=== PATIENT | male | born 1965 | race Hispanic/Latino ===

== ENCOUNTER 2022-03-24 15:17 | Inpatient (IN) | payer OTHER ==
[~2022-03-24] VITALS: Ht 162.6 cm; Wt 71.8 kg
[2022-03-24 15:58] LABS: BASOPHILS % (AUTO) 0.3 % (0.0-5.0); EOSINOPHILS % (AUTO) 0.6 % (0.0-8.0); HEMATOCRIT 25.6 % (42-54); LYMPHOCYTES % (AUTO) 3.2 % (21.0-51.0); MEAN CORPUSCULAR HEMOGLOBIN 32.5 pg (27.0-33.0); MEAN CORPUSCULAR VOLUME 95.5 fL (79-99); MONOCYTES % (AUTO) 5.6 % (3.0-13.0); NEUTROPHILS % (AUTO) 89.4 % (40.0-77.0); PLATELET COUNT (AUTO) 82 K/uL (130-400); RED BLOOD CELL COUNT(AUTO) 2.68 MIL/uL (4.50-6.20); RED CELL DISTRIBUTION WIDTH 15.3 % (11.0-15.5); WHITE BLOOD COUNT (AUTO) 22.6 K/uL (4.8-10.8)
[2022-03-24 16:08] LABS: CREATININE 2.9 mg/dL (0.5-1.5); POTASSIUM 5.6 mmol/L (3.5-5.1)
[2022-03-24 16:10] LABS: INR 1.18 (0.85-1.15); PROTHROMBIN TIME 12.7 SEC (9.6-11.6)
[2022-03-24 16:11] LABS: PARTIAL THROMBOPLASTIN TIME 31.9 SEC (26.3-35.5)
[2022-03-24 16:15] LABS: ALBUMIN 1.5 g/dL (3.5-5.0); BILIRUBIN,TOTAL 2.2 mg/dL (0.2-1.0); TOTAL PROTEIN, SERUM 5.7 g/dL (6.0-8.3)
[2022-03-24] MEDS ORDERED: CEFTRIAXONE 1G VIAL IVP ONE (16:30)
[2022-03-24] MEDS ORDERED: ACETAMINOPHEN 325 MG TAB PO PRN ×2 (17:30)
[2022-03-24] MEDS ORDERED: 0.9%NACL 1000ML 1,000 ML IV SCH (17:30)
[2022-03-24] MEDS ORDERED: PHARMACY COMMUNICATION MISC PRN (17:30)
[2022-03-24] MEDS ORDERED: ONDANSETRON 4MG INJ IV PRN (17:30)
[2022-03-24] MEDS ORDERED: THIAMINE HCL 100 MG, FOLIC ACID 1 MG, M.V.I. IV [ADULT] 10 ML in 0.9%NACL 1000ML 1,000 ML IV SCH (17:30)
[2022-03-24] MEDS: ALBUMIN (HUMAN) 25% 50 ML IV SCH (17:34)
[2022-03-24] MEDS: ALBUMIN (HUMAN) 25% 200 ML IV SCH (17:35)
[2022-03-24] MEDS: LACTULOSE 20 GM/30 ML UDCUP PO SCH ×2 (17:36→23:39)
[2022-03-24] MEDS ORDERED: PANTOPRAZOLE 40 MG/VIAL ONE (17:49)
[2022-03-24] MEDS ORDERED: MIDODRINE HCL 5 MG TABLET ONE (17:49)
[2022-03-24 17:50] LABS: ALCOHOL, BLOOD < 3 mg/dL (0-10); PHOSPHORUS 4.8 mg/dL (2.5-4.9)
[2022-03-24] MEDS ORDERED: OCTREOTIDE ACETATE 100 MCG/ML AMP ONE (17:50)
[2022-03-24] MEDS ORDERED: COMPOUND IV REFRIGERATED 1 EACH IVSOLN MISC PRN (18:00)
[2022-03-24] MEDS ORDERED: LACTULOSE 20 GM/30 ML UDCUP PR SCH (18:00)
[2022-03-24] MEDS: MIDODRINE HCL 5 MG TABLET PO SCH (18:02)
[2022-03-24] MEDS: PANTOPRAZOLE 40 MG/VIAL IVP SCH (18:02)
[2022-03-24] MEDS: MEROPENEM 500 MG VIAL IVP SCH (18:12)
[2022-03-24] MEDS: NOREPINEPHRIN 4MG/NS 250ML 250 ML IV SCH (18:37)
[2022-03-24] MEDS ORDERED: PHENYLEPHRINE HCL 100 MG in 0.9% NACL 250ML 250 ML IV SCH (20:30)
[2022-03-24] MEDS ORDERED: CALCIUM GLUC 1GM 1 GM in 0.9%NACL 100ML 100 ML IV SCH (20:30)
[2022-03-24 20:46] LABS: HEMATOCRIT 22.5 % (42-54)
[2022-03-24] MEDS ORDERED: CEFTRIAXONE 1G VIAL IV SCH (21:00)
[2022-03-24] MEDS ORDERED: DEXTROSE 50%-WATER 50 ML DISP.SYRIN IV ONE (21:00)
[2022-03-24] MEDS ORDERED: INSULIN HUMULIN R 100 UNIT/ML 3ML IV ONE (21:00)
[2022-03-24] MEDS ORDERED: KAYEXALATE 15GM/60ML PO ONE (21:00)
[2022-03-24] MEDS ORDERED: OCTREOTIDE ACETATE 100 MCG/ML AMP SQ SCH (21:00)
[2022-03-24] MEDS: RIFAXIMIN 550 MG TABLET PO SCH (21:00)
[2022-03-24 21:56] LABS: APPEARANCE,URINE Cloudy (CLEAR); BILIRUBIN,URINE Negative (NEGATIVE); COLOR,URINE Orange (YELLOW); GLUCOSE, URINE (UA) Negative (NEGATIVE); KETONES,URINE Negative (NEGATIVE); LEUKOCYTE ESTERASE ,URINE Moderate (NEGATIVE); NITRATE,URINE Positive (NEGATIVE); OCCULT BLOOD,URINE Large (NEGATIVE); PROTEIN,URINE POS 2+ mg/dL (NEGATIVE)
[2022-03-24 22:05] LABS: AMPHET/METH SCREEN,URINE NEGATIVE (NEGATIVE); BARBITURATE SCREEN, URINE NEGATIVE (NEGATIVE); BENZODIAZEPINES SCREEN,URINE NEGATIVE (NEGATIVE); CANNABINOID SCREEN,URINE NEGATIVE (NEGATIVE); COCAINE SCREEN,URINE NEGATIVE (NEGATIVE); OPIATE SCREEN,URINE NEGATIVE (NEGATIVE); PHENCYCLIDINE SCREEN,URINE NEGATIVE (NEGATIVE)
[2022-03-24 22:08] LABS: BACTERIA,URINE Few /HPF (None Seen); RBC,URINE 51-100 /HPF (0-1)
[2022-03-24 22:09] LABS: SQUAMOUS EPITHELIAL CELL,UR Rare /HPF (0-2)
[2022-03-25] VITALS (60 sets, daily range): BP systolic 83–144; BP diastolic 34–93
[2022-03-25 01:51] LABS: ABG BASE EXCESS -5.5 mmol/L (-2.0-3.0); ABG HCO3 16.3 mmol/L (21.0-28.0); ABG OXYGEN SATURATION 98.9 % (95.0-99.0); ABG PCO2 24 mmHg (35-48)
[2022-03-25 01:56] LABS: MEAN CORPUSCULAR HGB CONC 34.5 g/dL (32.0-36.0)
[2022-03-25 01:59] LABS: BASOPHILS % (AUTO) 0.2 % (0.0-5.0); LYMPHOCYTES % (AUTO) 7.5 % (21.0-51.0); MEAN CORPUSCULAR HEMOGLOBIN 32.9 pg (27.0-33.0); MEAN CORPUSCULAR VOLUME 95.3 fL (79-99); MONOCYTES % (AUTO) 8.1 % (3.0-13.0); NEUTROPHILS % (AUTO) 83.2 % (40.0-77.0); PLATELET COUNT (AUTO) 93 K/uL (130-400); RED BLOOD CELL COUNT(AUTO) 2.13 MIL/uL (4.50-6.20); WHITE BLOOD COUNT (AUTO) 20.9 K/uL (4.8-10.8)
[2022-03-25 02:01] LABS: HEMATOCRIT 20.3 % (42-54)
[2022-03-25 02:12] LABS: CREATININE 2.7 mg/dL (0.5-1.5); POTASSIUM 4.7 mmol/L (3.5-5.1)
[2022-03-25 02:17] LABS: MAGNESIUM 2.3 mg/dL (1.80-2.40)
[2022-03-25] MEDS: LACTULOSE 20 GM/30 ML UDCUP PO SCH ×4 (05:18→22:49)
[2022-03-25] MEDS: MEROPENEM 500 MG VIAL IVP SCH ×2 (05:18→18:00)
[2022-03-25] MEDS ORDERED: OCTREOTIDE ACETATE 100 MCG/ML AMP IV SCH (08:30)
[2022-03-25] MEDS: PANTOPRAZOLE 40 MG/VIAL IVP SCH ×2 (09:23→20:49)
[2022-03-25] MEDS: THIAMINE HCL 100 MG TABLET PO SCH (09:24)
[2022-03-25] MEDS: RIFAXIMIN 550 MG TABLET PO SCH ×2 (09:24→20:49)
[2022-03-25] MEDS: MIDODRINE HCL 5 MG TABLET PO SCH ×3 (09:24→20:50)
[2022-03-25] MEDS: MULTIVITAMIN TABLET PO SCH (09:29)
[2022-03-25] MEDS: 0.9%NACL 1000ML 1,000 ML IV SCH ×2 (09:29→18:30)
[2022-03-25] MEDS: NOREPINEPHRIN 4MG/NS 250ML 250 ML IV SCH (09:41)
[2022-03-25 12:45] LABS: HEMATOCRIT 20.6 % (42-54)
[2022-03-25] MEDS: Vitamin B Complex/Vit C/Folic Acid PO SCH (15:08)
[2022-03-25] MEDS: ALBUMIN (HUMAN) 25% 50 ML IV SCH ×3 (15:08→22:47)
[2022-03-25 17:01] LABS: HEMATOCRIT 22.5 % (42-54)
[2022-03-25] MEDS: ALBUMIN (HUMAN) 25% 200 ML IV SCH (17:30)
[2022-03-25] MEDS: OCTREOTIDE ACETATE 1,250 MCG in 0.9% NACL 250ML 250 ML IV SCH (17:50)
[2022-03-25 21:18] LABS: HEMATOCRIT 21.3 % (42-54)
[2022-03-25] MEDS ORDERED: ALBUMIN (HUMAN) 25% 0 ML IV ONE (22:24)
[2022-03-26] VITALS (65 sets, daily range): BP systolic 94–139; BP diastolic 53–76
[2022-03-26] MEDS: NOREPINEPHRIN 4MG/NS 250ML 250 ML IV SCH (00:42)
[2022-03-26] MEDS: 0.9%NACL 1000ML 1,000 ML IV SCH ×3 (04:05→23:38)
[2022-03-26 04:12] LABS: HEMATOCRIT 21.6 % (42-54); MEAN CORPUSCULAR HEMOGLOBIN 31.2 pg (27.0-33.0); MEAN CORPUSCULAR HGB CONC 33.3 g/dL (32.0-36.0); MEAN CORPUSCULAR VOLUME 93.5 fL (79-99); PLATELET COUNT (AUTO) 64 K/uL (130-400); RED BLOOD CELL COUNT(AUTO) 2.31 MIL/uL (4.50-6.20); RED CELL DISTRIBUTION WIDTH 17.2 % (11.0-15.5); WHITE BLOOD COUNT (AUTO) 7.6 K/uL (4.8-10.8)
[2022-03-26 04:55] LABS: BILIRUBIN,TOTAL 2.3 mg/dL (0.2-1.0); CREATININE 2.1 mg/dL (0.5-1.5); MAGNESIUM 2.1 mg/dL (1.80-2.40); PHOSPHORUS 4.5 mg/dL (2.5-4.9); POTASSIUM 3.8 mmol/L (3.5-5.1); THYROID STIMULATING HORMONE 1.36 uIU/mL (0.36-3.74); TOTAL PROTEIN, SERUM 4.8 g/dL (6.0-8.3); URIC ACID 11.9 mg/dL (2.6-7.2)
[2022-03-26] MEDS: MEROPENEM 500 MG VIAL IVP SCH ×2 (05:58→17:19)
[2022-03-26] MEDS: LACTULOSE 20 GM/30 ML UDCUP PO SCH ×4 (05:58→23:37)
[2022-03-26 06:16] LABS: EOSINOPHILS % (MANUAL) 1 % (1-6); LYMPHOCYTES % (MANUAL) 15 % (22-44); MAN.DIFF COMMENT-IMPRESSION MANUAL DIFFERENTIAL; MONOCYTES % (MANUAL) 4 % (2-9); PLATELET MORPHOLOGY COMMENT DECREASED; SEGMENTED NEUTROPHILS % 80 % (40-70)
[2022-03-26] MEDS: ALBUMIN (HUMAN) 25% 50 ML IV SCH (07:30)
[2022-03-26 08:55] LABS: HEMATOCRIT 22.7 % (42-54)
[2022-03-26] MEDS: THIAMINE HCL 100 MG TABLET PO SCH (09:06)
[2022-03-26] MEDS: Vitamin B Complex/Vit C/Folic Acid PO SCH (09:07)
[2022-03-26] MEDS: PANTOPRAZOLE 40 MG/VIAL IVP SCH ×2 (09:07→20:17)
[2022-03-26] MEDS: MIDODRINE HCL 5 MG TABLET PO SCH ×3 (09:07→20:18)
[2022-03-26] MEDS: MULTIVITAMIN TABLET PO SCH (09:07)
[2022-03-26] MEDS: RIFAXIMIN 550 MG TABLET PO SCH ×2 (09:07→20:18)
[2022-03-26 13:04] LABS: HEMATOCRIT 21.7 % (42-54)
[2022-03-26 16:53] LABS: HEMATOCRIT 22.1 % (42-54)
[2022-03-26 21:51] LABS: HEMATOCRIT 23.2 % (42-54)
[2022-03-27] VITALS (24 sets, daily range): BP systolic 100–129; BP diastolic 44–71
[2022-03-27] MEDS: LACTULOSE 20 GM/30 ML UDCUP PO SCH (05:24)
[2022-03-27] MEDS: MEROPENEM 500 MG VIAL IVP SCH ×2 (05:24→17:58)
[2022-03-27 09:03] LABS: BASOPHILS % (AUTO) 0.7 % (0.0-5.0); EOSINOPHILS % (AUTO) 1.2 % (0.0-8.0); HEMATOCRIT 25.8 % (42-54); LYMPHOCYTES % (AUTO) 16.8 % (21.0-51.0); MEAN CORPUSCULAR HEMOGLOBIN 31.5 pg (27.0-33.0); MEAN CORPUSCULAR HGB CONC 32.6 g/dL (32.0-36.0); MEAN CORPUSCULAR VOLUME 96.6 fL (79-99); MONOCYTES % (AUTO) 10.2 % (3.0-13.0); NEUTROPHILS % (AUTO) 69.4 % (40.0-77.0); PLATELET COUNT (AUTO) 72 K/uL (130-400); RED BLOOD CELL COUNT(AUTO) 2.67 MIL/uL (4.50-6.20); WHITE BLOOD COUNT (AUTO) 6.1 K/uL (4.8-10.8)
[2022-03-27 09:24] LABS: ALBUMIN 1.9 g/dL (3.5-5.0); CREATININE 1.8 mg/dL (0.5-1.5); CRP QUANTITATIVE 32.5 mg/L (0.00-9.0); MAGNESIUM 1.9 mg/dL (1.80-2.40); POTASSIUM 3.6 mmol/L (3.5-5.1); TOTAL PROTEIN, SERUM 4.7 g/dL (6.0-8.3)
[2022-03-27] MEDS ORDERED: LACTULOSE 20 GM/30 ML UDCUP PO PRN (09:30)
[2022-03-27] MEDS: RIFAXIMIN 550 MG TABLET PO SCH ×2 (09:52→20:00)
[2022-03-27] MEDS: MIDODRINE HCL 5 MG TABLET PO SCH ×3 (09:52→20:03)
[2022-03-27] MEDS: Vitamin B Complex/Vit C/Folic Acid PO SCH (09:52)
[2022-03-27] MEDS: PANTOPRAZOLE 40 MG/VIAL IVP SCH ×2 (09:52→20:00)
[2022-03-27] MEDS: MULTIVITAMIN TABLET PO SCH (09:52)
[2022-03-27] MEDS: THIAMINE HCL 100 MG TABLET PO SCH (09:55)
[2022-03-27] MEDS: 0.9%NACL 1000ML 1,000 ML IV SCH (10:04)
[2022-03-27] MEDS: OCTREOTIDE ACETATE 1,250 MCG in 0.9% NACL 250ML 250 ML IV SCH (11:40)
[2022-03-28] VITALS (13 sets, daily range): BP systolic 86–121; BP diastolic 56–69
[2022-03-28 02:00] LABS: APPEARANCE,URINE SL CLOUDY (CLEAR); BILIRUBIN,URINE NEGATIVE (NEGATIVE); COLOR,URINE YELLOW (YELLOW); CREATININE,URINE RANDOM 112 mg/dL (30-135); GLUCOSE, URINE (UA) NEGATIVE (NEGATIVE); KETONES,URINE NEGATIVE (NEGATIVE); LEUKOCYTE ESTERASE ,URINE NEGATIVE (NEGATIVE); NITRATE,URINE NEGATIVE (NEGATIVE); OCCULT BLOOD,URINE LARGE (NEGATIVE); PH,URINE 5.5 (5.0-8.0); POTASSIUM,URINE RANDOM 23 mmol/L (25-125); PROTEIN,URINE 100 mg/dL (NEGATIVE); SODIUM,URINE RANDOM 36 mmol/l (40-220); UROBILINOGEN,URINE 0.2 mg/dL (0.2-1.0)
[2022-03-28 02:06] LABS: AMORPHOUS SEDIMENT,UR Rare /LPF (None Seen); BACTERIA,URINE None Seen /HPF (None Seen); SQUAMOUS EPITHELIAL CELL,UR Rare /HPF (0-2); WBC,URINE None Seen /HPF (0-1); YEAST,URINE BUDDING Few /HPF (None Seen)
[2022-03-28 03:54] LABS: BASOPHILS % (AUTO) 0.7 % (0.0-5.0); HEMATOCRIT 27.7 % (42-54); LYMPHOCYTES % (AUTO) 17.2 % (21.0-51.0); MEAN CORPUSCULAR HEMOGLOBIN 30.9 pg (27.0-33.0); MEAN CORPUSCULAR HGB CONC 32.5 g/dL (32.0-36.0); MEAN CORPUSCULAR VOLUME 95.2 fL (79-99); MONOCYTES % (AUTO) 11.6 % (3.0-13.0); NEUTROPHILS % (AUTO) 67.8 % (40.0-77.0); PLATELET COUNT (AUTO) 93 K/uL (130-400); RED BLOOD CELL COUNT(AUTO) 2.91 MIL/uL (4.50-6.20); RED CELL DISTRIBUTION WIDTH 16.8 % (11.0-15.5)
[2022-03-28 04:04] LABS: CREATININE 1.7 mg/dL (0.5-1.5); POTASSIUM 3.5 mmol/L (3.5-5.1)
[2022-03-28 04:07] LABS: INR 1.41 (0.85-1.15); PROTHROMBIN TIME 15.1 SEC (9.6-11.6)
[2022-03-28] MEDS: MEROPENEM 500 MG VIAL IVP SCH ×2 (05:57→17:34)
[2022-03-28] MEDS ORDERED: PROPOFOL 10 MG/ML 20ML VIAL IV ONE (07:29)
[2022-03-28] MEDS ORDERED: SUCCINYLCHOLINE 200MG/10ML SYR ONE (07:29)
[2022-03-28] MEDS ORDERED: EPHEDRINE SULFATE 50 MG/ML AMPULE ONE (07:40)
[2022-03-28] MEDS: RIFAXIMIN 550 MG TABLET PO SCH ×2 (08:38→20:08)
[2022-03-28] MEDS: Vitamin B Complex/Vit C/Folic Acid PO SCH (08:38)
[2022-03-28] MEDS: THIAMINE HCL 100 MG TABLET PO SCH (08:38)
[2022-03-28] MEDS: MULTIVITAMIN TABLET PO SCH (08:38)
[2022-03-28] MEDS: MIDODRINE HCL 5 MG TABLET PO SCH ×3 (08:38→20:08)
[2022-03-28] MEDS: PANTOPRAZOLE 40 MG/VIAL IVP SCH (08:40)
[2022-03-28] MEDS ORDERED: LACTULOSE 20 GM/30 ML UDCUP PO SCH (09:00)
[2022-03-28] MEDS: PANTOPRAZOLE 40 MG TAB DR PO SCH (09:22)
[2022-03-28] MEDS: LACTULOSE 20 GM/30 ML UDCUP PO SCH (20:09)
[2022-03-29] MEDS: MEROPENEM 500 MG VIAL IVP SCH (06:00)
[2022-03-29 07:30] VITALS: BP 117/74
[2022-03-29 09:28] LABS: BASOPHILS % (AUTO) 0.4 % (0.0-5.0); HEMATOCRIT 22.6 % (42-54); LYMPHOCYTES % (AUTO) 15.8 % (21.0-51.0); MEAN CORPUSCULAR HEMOGLOBIN 31.4 pg (27.0-33.0); MEAN CORPUSCULAR HGB CONC 33.2 g/dL (32.0-36.0); MEAN CORPUSCULAR VOLUME 94.6 fL (79-99); MONOCYTES % (AUTO) 10.1 % (3.0-13.0); PLATELET COUNT (AUTO) 84 K/uL (130-400); RED BLOOD CELL COUNT(AUTO) 2.39 MIL/uL (4.50-6.20); RED CELL DISTRIBUTION WIDTH 16.5 % (11.0-15.5); WHITE BLOOD COUNT (AUTO) 7.7 K/uL (4.8-10.8)
[2022-03-29] MEDS: LACTULOSE 20 GM/30 ML UDCUP PO SCH ×2 (09:29→23:24)
[2022-03-29] MEDS: PANTOPRAZOLE 40 MG TAB DR PO SCH (09:29)
[2022-03-29] MEDS: THIAMINE HCL 100 MG TABLET PO SCH (09:30)
[2022-03-29] MEDS: RIFAXIMIN 550 MG TABLET PO SCH ×2 (09:30→23:24)
[2022-03-29] MEDS: MULTIVITAMIN TABLET PO SCH (09:30)
[2022-03-29] MEDS: MIDODRINE HCL 5 MG TABLET PO SCH ×3 (09:30→23:24)
[2022-03-29] MEDS: Vitamin B Complex/Vit C/Folic Acid PO SCH (09:30)
[2022-03-29 09:45] LABS: ALBUMIN 1.7 g/dL (3.5-5.0); BILIRUBIN,TOTAL 2.5 mg/dL (0.2-1.0); CREATININE 1.3 mg/dL (0.5-1.5); MAGNESIUM 1.7 mg/dL (1.80-2.40); POTASSIUM 3.5 mmol/L (3.5-5.1); TOTAL PROTEIN, SERUM 4.5 g/dL (6.0-8.3)
[2022-03-29 11:30] VITALS: BP 114/80
[2022-03-29] MEDS ORDERED: MEROPENEM 1 GM VIAL IVP SCH (13:00)
[2022-03-29 15:10] VITALS: BP 94/63
[2022-03-29] MEDS: LEVOFLOXACIN 750 MG TABLET PO SCH (16:15)
[2022-03-29 19:33] VITALS: BP 89/58
[2022-03-29 22:31] VITALS: BP 90/56
[2022-03-30] VITALS (15 sets, daily range): BP systolic 83–108; BP diastolic 48–80
[2022-03-30 06:27] LABS: HEMATOCRIT 21.5 % (42-54); MEAN CORPUSCULAR HEMOGLOBIN 31.2 pg (27.0-33.0); MEAN CORPUSCULAR HGB CONC 33.5 g/dL (32.0-36.0); MEAN CORPUSCULAR VOLUME 93.1 fL (79-99); PLATELET COUNT (AUTO) 68 K/uL (130-400); RED BLOOD CELL COUNT(AUTO) 2.31 MIL/uL (4.50-6.20); RED CELL DISTRIBUTION WIDTH 16.4 % (11.0-15.5); WHITE BLOOD COUNT (AUTO) 6.4 K/uL (4.8-10.8)
[2022-03-30 06:33] LABS: INR 1.58 (0.85-1.15); PROTHROMBIN TIME 16.8 SEC (9.6-11.6)
[2022-03-30 06:34] LABS: PARTIAL THROMBOPLASTIN TIME 43.7 SEC (26.3-35.5)
[2022-03-30 06:44] LABS: ALBUMIN 1.5 g/dL (3.5-5.0); BILIRUBIN,TOTAL 1.8 mg/dL (0.2-1.0); CREATININE 1.2 mg/dL (0.5-1.5); MAGNESIUM 1.5 mg/dL (1.80-2.40); POTASSIUM 3.3 mmol/L (3.5-5.1); TOTAL PROTEIN, SERUM 4.3 g/dL (6.0-8.3)
[2022-03-30] MEDS: MULTIVITAMIN TABLET PO SCH (08:26)
[2022-03-30] MEDS: RIFAXIMIN 550 MG TABLET PO SCH ×2 (08:26→22:17)
[2022-03-30] MEDS: PANTOPRAZOLE 40 MG TAB DR PO SCH (08:26)
[2022-03-30] MEDS: THIAMINE HCL 100 MG TABLET PO SCH (08:26)
[2022-03-30] MEDS: MIDODRINE HCL 5 MG TABLET PO SCH ×3 (08:26→22:18)
[2022-03-30] MEDS: Vitamin B Complex/Vit C/Folic Acid PO SCH (08:26)
[2022-03-30] MEDS ORDERED: MAGNESIUM 2GM PREMIX 50ML 50 ML IV PRN (09:00)
[2022-03-30] MEDS ORDERED: POTASSIUM CHLORIDE 10% ELIXIR 20 MEQ/15 ML UDCUP PO PRN (09:00)
[2022-03-30] MEDS ORDERED: POTASSIUM CHLORIDE 20MEQ/100ML 100 ML IV PRN (09:00)
[2022-03-30] MEDS: LACTULOSE 20 GM/30 ML UDCUP PO SCH ×2 (09:00→22:17)
[2022-03-30] MEDS ORDERED: LIDOCAINE HCL-MPF 1% 2ML VIAL IV PRN (09:00)
[2022-03-30 09:55] LABS: LYMPHOCYTES % (MANUAL) 8 % (22-44); MAN.DIFF COMMENT-IMPRESSION MANUAL DIFFERENTIAL; MONOCYTES % (MANUAL) 4 % (2-9); SEGMENTED NEUTROPHILS % 88 % (40-70)
[2022-03-30 09:56] LABS: PLATELET MORPHOLOGY COMMENT MARKED DECREASE
[2022-03-30] MEDS: KCL 20 MEQ ERTAB PO PRN ×3 (12:52→18:01)
[2022-03-30 14:40] LABS: APPEARANCE BODY FLUID CLEAR (CLEAR); BODY FLUID WBC 50 /cu. mm.; COLOR,BODY FLUID YELLOW (LT YELLOW); SPECIMENTYPE,BODY FLUID ASCITES; TOTAL VOLUME,BODY FLUID 2000 mL
[2022-03-30 14:41] LABS: BODY FLUID RBC 162 /cu. mm.
[2022-03-30] MEDS: LEVOFLOXACIN 750 MG TABLET PO SCH (14:43)
[2022-03-30 14:44] LABS: BF EOSINOPHIL 2 %; BF LYMPHOCYTE 16 %; BF MESOTHELIAL 30 %; BF MONOCYTE 2 %
[2022-03-31] VITALS: BP 91/58
[2022-03-31 04:00] VITALS: BP 96/54
[2022-03-31 05:36] LABS: BASOPHILS % (AUTO) 0.5 % (0.0-5.0); EOSINOPHILS % (AUTO) 1.7 % (0.0-8.0); HEMATOCRIT 21.1 % (42-54); LYMPHOCYTES % (AUTO) 22.8 % (21.0-51.0); MEAN CORPUSCULAR HEMOGLOBIN 31.9 pg (27.0-33.0); MEAN CORPUSCULAR HGB CONC 34.1 g/dL (32.0-36.0); MEAN CORPUSCULAR VOLUME 93.4 fL (79-99); MONOCYTES % (AUTO) 9.8 % (3.0-13.0); NEUTROPHILS % (AUTO) 64.9 % (40.0-77.0); PLATELET COUNT (AUTO) 73 K/uL (130-400); RED BLOOD CELL COUNT(AUTO) 2.26 MIL/uL (4.50-6.20); RED CELL DISTRIBUTION WIDTH 16.6 % (11.0-15.5); WHITE BLOOD COUNT (AUTO) 5.8 K/uL (4.8-10.8)
[2022-03-31 05:58] LABS: ALBUMIN 1.4 g/dL (3.5-5.0); BILIRUBIN,TOTAL 1.3 mg/dL (0.2-1.0); CREATININE 1.2 mg/dL (0.5-1.5); MAGNESIUM 1.9 mg/dL (1.80-2.40); POTASSIUM 3.8 mmol/L (3.5-5.1); TOTAL PROTEIN, SERUM 3.9 g/dL (6.0-8.3)
[2022-03-31] MEDS: PANTOPRAZOLE 40 MG TAB DR PO SCH (06:04)
[2022-03-31 08:00] VITALS: BP 91/57
[2022-03-31] MEDS: Vitamin B Complex/Vit C/Folic Acid PO SCH (08:43)
[2022-03-31] MEDS: MIDODRINE HCL 5 MG TABLET PO SCH (08:43)
[2022-03-31] MEDS: MULTIVITAMIN TABLET PO SCH (08:43)
[2022-03-31] MEDS: LACTULOSE 20 GM/30 ML UDCUP PO SCH (08:44)
[2022-03-31] MEDS: THIAMINE HCL 100 MG TABLET PO SCH (08:44)
[2022-03-31] MEDS: RIFAXIMIN 550 MG TABLET PO SCH (08:44)
[2022-03-31] MEDS: KCL 20 MEQ ERTAB PO PRN (08:44)
[2022-03-31] MEDS ORDERED: PANT40TA54 PO (10:53)
[2022-03-31] MEDS ORDERED: LEVO750T46 PO (10:53)
[2022-03-31] MEDS ORDERED: FOLI0.8T2 PO (10:53)
[2022-03-31] MEDS ORDERED: MIDO10TA PO (10:53)
[2022-03-31] MEDS ORDERED: LACT10SO9 PO (10:53)
== END 2022-03-31 11:00 | disposition home or self-care (01) | DRG 871 ==
LOC: EDH 15:17 → EDHIP 15:18 → INTOOBSV 15:18 → OBSVTOIN 15:18 → 2CH 03-25 04:45 → 3DH 03-28 16:46
PROVIDERS: ADMIT Hospitalist; ATTEND Hospitalist
PROC: 30233N1 Transfusion of Nonautologous Red Blood Cells into Peripheral Vein, Percutaneous Approach (ICD-10-PCS; 2022-03-25)
PROC: 02H633Z Insertion of Infusion Device into Right Atrium, Percutaneous Approach (ICD-10-PCS; 2022-03-25)
PROC: 0DJ08ZZ Inspection of Upper Intestinal Tract, Via Natural or Artificial Opening Endoscopic (ICD-10-PCS; principal; 2022-03-28)
PROC: 0W993ZZ Drainage of Right Pleural Cavity, Percutaneous Approach (ICD-10-PCS; 2022-03-30)
DX: A41.9 Sepsis, unspecified organism (principal); K65.2 Spontaneous bacterial peritonitis; R65.21 Severe sepsis with septic shock; K76.7 Hepatorenal syndrome; E43 Unspecified severe protein-calorie malnutrition; J96.01 Acute respiratory failure with hypoxia; G93.41 Metabolic encephalopathy; E87.1 Hypo-osmolality and hyponatremia; N17.9 Acute kidney failure, unspecified; K76.6 Portal hypertension; D62 Acute posthemorrhagic anemia; J90 Pleural effusion, not elsewhere classified; K92.2 Gastrointestinal hemorrhage, unspecified; D68.9 Coagulation defect, unspecified; E87.5 Hyperkalemia; D69.6 Thrombocytopenia, unspecified; K70.31 Alcoholic cirrhosis of liver with ascites; Z20.822 Contact with and (suspected) exposure to COVID-19; K31.89 Other diseases of stomach and duodenum; K72.90 Hepatic failure, unspecified without coma; I95.89 Other hypotension; D69.59 Other secondary thrombocytopenia; E88.09 Other disorders of plasma-protein metabolism, not elsewhere classified; R54 Age-related physical debility; Z79.899 Other long term (current) drug therapy; Z68.27 Body mass index [BMI] 27.0-27.9, adult; N18.9 Chronic kidney disease, unspecified
CPT/HCPCS: 32555; 36415; 36600; 43235; 71045; 71250; 74176; 76705; 80048; 80053; 80305; 81001; 82140; 82270; 82570; 82803; 82945; 83605; 83615; 83735; 83930; 83935; 83986; 84100; 84132; 84133; 84145; 84157; 84300; 84443; 84484; 84550; 85014; 85018; 85025; 85610; 85730; 86140; 86850; 86900; 86901; 86923; 87040; 87071; 87088; 87116; 87205; 87206; 87635; 87804; 89051; 93005; 97039; A4606; C1729; C1751; C1894; C9113; C9803; G0378; J0330; J0696; J2185; J2354; J2370; J2704; J3411; J3475; J3490; J7030; J7050; P9016; P9046; P9047

== ENCOUNTER 2022-04-09 13:31 | Inpatient (IN) | payer OTHER ==
[~2022-04-09] VITALS: Ht 162.6 cm; Wt 69.5 kg
[~2022-04-09 13:31] MED LIST: FOLI0.8T2 PO; LACT10SO9 PO; LEVO750T46 PO; MIDO10TA PO; PANT40TA54 PO
[2022-04-09 14:01] LABS: BASOPHILS % (AUTO) 0.4 % (0.0-5.0); EOSINOPHILS % (AUTO) 0.9 % (0.0-8.0); LYMPHOCYTES % (AUTO) 27.8 % (21.0-51.0); MEAN CORPUSCULAR HEMOGLOBIN 31.5 pg (27.0-33.0); MEAN CORPUSCULAR HGB CONC 33.6 g/dL (32.0-36.0); MEAN CORPUSCULAR VOLUME 93.6 fL (79-99); MONOCYTES % (AUTO) 10.6 % (3.0-13.0); NEUTROPHILS % (AUTO) 60.1 % (40.0-77.0); PLATELET COUNT (AUTO) 114 K/uL (130-400); RED BLOOD CELL COUNT(AUTO) 2.35 MIL/uL (4.50-6.20); RED CELL DISTRIBUTION WIDTH 17.9 % (11.0-15.5); WHITE BLOOD COUNT (AUTO) 5.3 K/uL (4.8-10.8)
[2022-04-09 14:18] LABS: ALBUMIN 1.8 g/dL (3.5-5.0); CARBON DIOXIDE 21 mmol/L (21-32); CHLORIDE 109 mmol/L (101-111); CREATININE 2.2 mg/dL (0.5-1.5); GLOMERULAR FILTR. RATE CALC 33 mL/min (>60); GLUCOSE,RANDOM 101 mg/dL (70-105); POTASSIUM 4.1 mmol/L (3.5-5.1); SODIUM SERUM 138 mmol/L (136-145); UREA NITROGEN, BLOOD 21 mg/dL (7-18)
[2022-04-09 14:22] LABS: ACETAMINOPHEN 4 mcg/mL (10-29); ALANINE AMINOTRANSFERASE 31 U/L (12-78); ALCOHOL, BLOOD < 3 mg/dL (0-10); AMYLASE 137 U/L (25-115); ASPARTATE AMINOTRANSFERASE 52 U/L (10-37); BILIRUBIN,TOTAL 2.2 mg/dL (0.2-1.0); CREATINE KINASE, TOTAL 94 U/L (21-232); TOTAL PROTEIN, SERUM 5.1 g/dL (6.0-8.3)
[2022-04-09 14:30] LABS: AMMONIA 81 umol/L (11-32)
[2022-04-09] MEDS ORDERED: ZOSYN 3.375GM +NS 50ML IV ONE (14:30)
[2022-04-09 14:37] LABS: SALICYLATE < 2.8 mg/dL (2.8-20.0)
[2022-04-09 15:36] LABS: APPEARANCE,URINE CLEAR (CLEAR); BILIRUBIN,URINE NEGATIVE (NEGATIVE); COLOR,URINE YELLOW (YELLOW); GLUCOSE, URINE (UA) NEGATIVE (NEGATIVE); KETONES,URINE NEGATIVE (NEGATIVE); LEUKOCYTE ESTERASE ,URINE NEGATIVE (NEGATIVE); NITRATE,URINE NEGATIVE (NEGATIVE); OCCULT BLOOD,URINE LARGE (NEGATIVE); PROTEIN,URINE TRACE mg/dL (NEGATIVE); UROBILINOGEN,URINE 0.2 mg/dL (0.2-1.0)
[2022-04-09 15:43] LABS: AMPHET/METH SCREEN,URINE NEGATIVE (NEGATIVE); BARBITURATE SCREEN, URINE NEGATIVE (NEGATIVE); BENZODIAZEPINES SCREEN,URINE NEGATIVE (NEGATIVE); CANNABINOID SCREEN,URINE NEGATIVE (NEGATIVE); COCAINE SCREEN,URINE NEGATIVE (NEGATIVE); OPIATE SCREEN,URINE NEGATIVE (NEGATIVE); PHENCYCLIDINE SCREEN,URINE NEGATIVE (NEGATIVE)
[2022-04-09 15:47] LABS: BACTERIA,URINE Few /HPF (None Seen); MUCUS,URINE Few LPF (None Seen); SQUAMOUS EPITHELIAL CELL,UR Moderate /HPF (0-2)
[2022-04-09] MEDS ORDERED: PHARMACY COMMUNICATION MISC SCH (18:00)
[2022-04-09] MEDS ORDERED: LACTULOSE 20 GM/30 ML UDCUP PR ONE (18:00)
[2022-04-09] MEDS ORDERED: THIAMINE HCL 100 MG/ML 2ML VIAL IVP SCH (18:00)
[2022-04-09] MEDS: LACTATED RINGERS 1000ML 1,000 ML IV SCH (18:51)
[2022-04-09] MEDS: PANTOPRAZOLE 40 MG/VIAL IVP SCH (18:51)
[2022-04-09] MEDS: ZOSYN 3.375GM +NS 50ML IV SCH (19:57)
[2022-04-09 20:07] LABS: HEMATOCRIT 23.6 % (42-54)
[2022-04-10 04:44] LABS: BASOPHILS % (AUTO) 0.6 % (0.0-5.0); HEMATOCRIT 22.5 % (42-54); LYMPHOCYTES % (AUTO) 27.9 % (21.0-51.0); MEAN CORPUSCULAR HEMOGLOBIN 30.5 pg (27.0-33.0); MEAN CORPUSCULAR VOLUME 95.3 fL (79-99); MONOCYTES % (AUTO) 11.7 % (3.0-13.0); NEUTROPHILS % (AUTO) 56.6 % (40.0-77.0); PLATELET COUNT (AUTO) 98 K/uL (130-400); RED BLOOD CELL COUNT(AUTO) 2.36 MIL/uL (4.50-6.20); RED CELL DISTRIBUTION WIDTH 17.9 % (11.0-15.5); WHITE BLOOD COUNT (AUTO) 5.1 K/uL (4.8-10.8)
[2022-04-10 04:59] LABS: INR 1.32 (0.85-1.15); PROTHROMBIN TIME 14.2 SEC (9.6-11.6)
[2022-04-10 05:01] LABS: PARTIAL THROMBOPLASTIN TIME 33.9 SEC (26.3-35.5)
[2022-04-10 05:02] LABS: ALBUMIN 1.8 g/dL (3.5-5.0); BILIRUBIN,TOTAL 2.9 mg/dL (0.2-1.0); CREATININE 2.3 mg/dL (0.5-1.5); CRP QUANTITATIVE 4.2 mg/L (0.00-9.0); MAGNESIUM 1.8 mg/dL (1.80-2.40); POTASSIUM 4.4 mmol/L (3.5-5.1); TOTAL PROTEIN, SERUM 5.2 g/dL (6.0-8.3)
[2022-04-10] MEDS: PANTOPRAZOLE 40 MG/VIAL IVP SCH ×2 (05:30→17:56)
[2022-04-10] MEDS: LACTATED RINGERS 1000ML 1,000 ML IV SCH ×2 (07:42→20:40)
[2022-04-10] MEDS: ZOSYN 3.375GM +NS 50ML IV SCH ×2 (08:08→20:00)
[2022-04-10] MEDS: LACTULOSE 20 GM/30 ML UDCUP PO SCH ×2 (10:03→17:56)
[2022-04-10] MEDS: RIFAXIMIN 550 MG TABLET PO SCH ×2 (10:07→20:42)
[2022-04-10] MEDS ORDERED: ALBUMIN (HUMAN) 25% 50 ML IV SCH (13:30)
[2022-04-10] MEDS: MIDODRINE HCL 5 MG TABLET PO SCH (21:00)
[2022-04-10] MEDS ORDERED: OCTREOTIDE ACETATE 100 MCG/ML AMP SQ SCH (21:00)
[2022-04-11] VITALS (7 sets, daily range): BP systolic 111–128; BP diastolic 67–74
[2022-04-11] MEDS: LACTULOSE 20 GM/30 ML UDCUP PO SCH ×3 (01:51→16:42)
[2022-04-11 04:34] LABS: BASOPHILS % (AUTO) 0.6 % (0.0-5.0); EOSINOPHILS % (AUTO) 5.9 % (0.0-8.0); LYMPHOCYTES % (AUTO) 32.8 % (21.0-51.0); MEAN CORPUSCULAR HEMOGLOBIN 31.7 pg (27.0-33.0); MEAN CORPUSCULAR HGB CONC 33.7 g/dL (32.0-36.0); MONOCYTES % (AUTO) 16.6 % (3.0-13.0); NEUTROPHILS % (AUTO) 43.8 % (40.0-77.0); PLATELET COUNT (AUTO) 65 K/uL (130-400); RED BLOOD CELL COUNT(AUTO) 1.99 MIL/uL (4.50-6.20); RED CELL DISTRIBUTION WIDTH 17.3 % (11.0-15.5); WHITE BLOOD COUNT (AUTO) 3.2 K/uL (4.8-10.8)
[2022-04-11 04:38] LABS: HEMATOCRIT 18.7 % (42-54)
[2022-04-11 04:44] LABS: ALBUMIN 1.6 g/dL (3.5-5.0); POTASSIUM 3.8 mmol/L (3.5-5.1); TOTAL PROTEIN, SERUM 4.7 g/dL (6.0-8.3)
[2022-04-11 05:06] LABS: PLATELET MORPHOLOGY COMMENT DECREASED
[2022-04-11] MEDS: PANTOPRAZOLE 40 MG/VIAL IVP SCH ×2 (05:21→16:42)
[2022-04-11] MEDS: IPRATROPIUM/ALBUTEROL SULFATE 3 ML SOLUTION IH PRN ×2 (06:37→19:51)
[2022-04-11 06:46] LABS: ABG BASE EXCESS -0.6 mmol/L (-2.0-3.0); ABG HCO3 21.6 mmol/L (21.0-28.0); ABG PCO2 29 mmHg (35-48)
[2022-04-11] MEDS: OCTREOTIDE ACETATE 100 MCG/ML AMP SQ SCH ×3 (06:51→21:13)
[2022-04-11] MEDS ORDERED: ALBUMIN (HUMAN) 25% 100 ML IV SCH (07:00)
[2022-04-11 07:30] LABS: HEMATOCRIT 19.4 % (42-54)
[2022-04-11] MEDS: RIFAXIMIN 550 MG TABLET PO SCH ×2 (08:15→21:12)
[2022-04-11] MEDS: MIDODRINE HCL 5 MG TABLET PO SCH ×3 (08:15→21:12)
[2022-04-11] MEDS: ZOSYN 3.375GM +NS 50ML IV SCH ×2 (08:15→21:13)
[2022-04-11 16:14] LABS: HEMATOCRIT 21.3 % (42-54)
[2022-04-11] MEDS: ALBUMIN (HUMAN) 25% 100 ML IV SCH (16:42)
[2022-04-12] MEDS: LACTULOSE 20 GM/30 ML UDCUP PO SCH ×4 (00:54→18:23)
[2022-04-12] MEDS: ALBUMIN (HUMAN) 25% 100 ML IV SCH ×3 (00:54→16:18)
[2022-04-12 05:19] LABS: HEMATOCRIT 21.2 % (42-54); MEAN CORPUSCULAR HEMOGLOBIN 31.4 pg (27.0-33.0); MEAN CORPUSCULAR VOLUME 95.1 fL (79-99); RED BLOOD CELL COUNT(AUTO) 2.23 MIL/uL (4.50-6.20); RED CELL DISTRIBUTION WIDTH 17.2 % (11.0-15.5); WHITE BLOOD COUNT (AUTO) 3.3 K/uL (4.8-10.8)
[2022-04-12 05:28] LABS: CREATININE 1.9 mg/dL (0.5-1.5); POTASSIUM 3.5 mmol/L (3.5-5.1)
[2022-04-12 05:30] LABS: INR 1.47 (0.85-1.15); PROTHROMBIN TIME 15.7 SEC (9.6-11.6)
[2022-04-12 05:31] LABS: PARTIAL THROMBOPLASTIN TIME 41.1 SEC (26.3-35.5)
[2022-04-12] MEDS: OCTREOTIDE ACETATE 100 MCG/ML AMP SQ SCH ×2 (06:00→14:17)
[2022-04-12] MEDS: PANTOPRAZOLE 40 MG/VIAL IVP SCH ×2 (06:18→18:23)
[2022-04-12 07:45] VITALS: BP 108/74
[2022-04-12] MEDS: ZOSYN 3.375GM +NS 50ML IV SCH ×2 (08:37→20:54)
[2022-04-12] MEDS: MIDODRINE HCL 5 MG TABLET PO SCH ×3 (08:38→20:54)
[2022-04-12] MEDS: RIFAXIMIN 550 MG TABLET PO SCH ×2 (08:39→20:54)
[2022-04-12 11:21] VITALS: BP 118/78
[2022-04-12 11:30] LABS: HEMATOCRIT 20.2 % (42-54)
[2022-04-12] MEDS ORDERED: LIDOCAINE HCL 1% 20 ML VIAL INJ SCH (14:30)
[2022-04-12] MEDS ORDERED: LIDOCAINE HCL 1% MDV 50ML VIAL IJ SCH (14:30)
[2022-04-12] MEDS ORDERED: PHYTONADIONE 10 MG in 0.9%NACL 50ML 50 ML IVPB ONE (15:30)
[2022-04-12 15:40] VITALS: BP 113/76
[2022-04-12] MEDS ORDERED: OCTREOTIDE ACETATE 100 MCG/ML AMP IV SCH (16:00)
[2022-04-12 16:10] LABS: APPEARANCE BODY FLUID SLIGHTLY CLOUDY (CLEAR); BODY FLUID WBC 16 /cu. mm.; COLOR,BODY FLUID YELLOW (LT YELLOW); SPECIMENTYPE,BODY FLUID PLEURAL; TOTAL VOLUME,BODY FLUID 2120 mL
[2022-04-12 16:11] LABS: BODY FLUID RBC 469 /cu. mm.
[2022-04-12] MEDS: [UNRECOGNIZED DRUG - OTHER] IV SCH (16:19)
[2022-04-12] MEDS: OCTREOTIDE ACETATE IV SCH (16:19)
[2022-04-12 16:55] LABS: BF LYMPHOCYTE 33 %; BF MESOTHELIAL 3 %; BF MONOCYTE 3 %; BF OTHER CELLS 1
[2022-04-12 17:00] LABS: HEMATOCRIT 29.1 % (42-54)
[2022-04-12 20:00] VITALS: BP 118/73
[2022-04-12 22:57] LABS: HEMATOCRIT 23.6 % (42-54)
[2022-04-13 00:01] VITALS: BP 123/77
[2022-04-13] MEDS: ALBUMIN (HUMAN) 25% 100 ML IV SCH ×3 (00:21→14:55)
[2022-04-13] MEDS: LACTULOSE 20 GM/30 ML UDCUP PO SCH ×3 (01:24→16:48)
[2022-04-13 03:41] LABS: HEMATOCRIT 21.8 % (42-54); MEAN CORPUSCULAR HEMOGLOBIN 31.4 pg (27.0-33.0); MEAN CORPUSCULAR HGB CONC 34.4 g/dL (32.0-36.0); MEAN CORPUSCULAR VOLUME 91.2 fL (79-99); PLATELET COUNT (AUTO) 71 K/uL (130-400); RED BLOOD CELL COUNT(AUTO) 2.39 MIL/uL (4.50-6.20); RED CELL DISTRIBUTION WIDTH 18.7 % (11.0-15.5); WHITE BLOOD COUNT (AUTO) 3.9 K/uL (4.8-10.8)
[2022-04-13 03:59] LABS: CREATININE 1.7 mg/dL (0.5-1.5); POTASSIUM 3.6 mmol/L (3.5-5.1)
[2022-04-13 04:19] VITALS: BP 118/78
[2022-04-13] MEDS: PANTOPRAZOLE 40 MG/VIAL IVP SCH ×2 (05:00→16:48)
[2022-04-13 07:40] VITALS: BP 146/78
[2022-04-13] MEDS: MIDODRINE HCL 5 MG TABLET PO SCH ×3 (07:57→20:30)
[2022-04-13] MEDS: ZOSYN 3.375GM +NS 50ML IV SCH ×2 (07:57→20:29)
[2022-04-13] MEDS: RIFAXIMIN 550 MG TABLET PO SCH ×2 (07:59→20:29)
[2022-04-13 11:33] VITALS: BP 122/80
[2022-04-13 15:43] VITALS: BP 116/78
[2022-04-13] MEDS: OCTREOTIDE ACETATE IV SCH (17:04)
[2022-04-13] MEDS: [UNRECOGNIZED DRUG - OTHER] IV SCH (17:04)
[2022-04-13 19:12] VITALS: BP 128/91
[2022-04-14 00:12] VITALS: BP 117/77
[2022-04-14] MEDS: LACTULOSE 20 GM/30 ML UDCUP PO SCH ×2 (02:00→08:45)
[2022-04-14 03:12] VITALS: BP 123/80
[2022-04-14 05:24] LABS: HEMATOCRIT 22.6 % (42-54); MEAN CORPUSCULAR HEMOGLOBIN 30.6 pg (27.0-33.0); MEAN CORPUSCULAR HGB CONC 33.2 g/dL (32.0-36.0); MEAN CORPUSCULAR VOLUME 92.2 fL (79-99); RED BLOOD CELL COUNT(AUTO) 2.45 MIL/uL (4.50-6.20)
[2022-04-14 05:37] LABS: CREATININE 1.5 mg/dL (0.5-1.5); POTASSIUM 3.6 mmol/L (3.5-5.1)
[2022-04-14] MEDS: PANTOPRAZOLE 40 MG/VIAL IVP SCH (06:28)
[2022-04-14 08:02] VITALS: BP 121/81
[2022-04-14] MEDS: MIDODRINE HCL 5 MG TABLET PO SCH (08:44)
[2022-04-14] MEDS: ZOSYN 3.375GM +NS 50ML IV SCH (08:44)
[2022-04-14] MEDS: RIFAXIMIN 550 MG TABLET PO SCH (08:45)
[2022-04-14] MEDS: [UNRECOGNIZED DRUG - OTHER] IV SCH (08:48)
[2022-04-14] MEDS: OCTREOTIDE ACETATE IV SCH (08:48)
[2022-04-14 11:20] VITALS: BP 115/80
== END 2022-04-14 12:05 | disposition home or self-care (01) | DRG 441 ==
LOC: EDH 13:31 → EDHIP 13:32 → OBSVTOIN 13:32 → INTOOBSV 13:32 → EDHIP 17:35 → UNDOADMIN 17:35 → EDHIP 04-11 00:14 → 2DH 04-11 00:14
PROVIDERS: ADMIT Hospitalist; ATTEND Hospitalist
PROC: 30233N1 Transfusion of Nonautologous Red Blood Cells into Peripheral Vein, Percutaneous Approach (ICD-10-PCS; 2022-04-11)
PROC: 0W993ZZ Drainage of Right Pleural Cavity, Percutaneous Approach (ICD-10-PCS; principal; 2022-04-12)
DX: K72.90 Hepatic failure, unspecified without coma (principal); E43 Unspecified severe protein-calorie malnutrition; K76.7 Hepatorenal syndrome; R18.8 Other ascites; E87.2 Acidosis; J98.11 Atelectasis; N17.9 Acute kidney failure, unspecified; J90 Pleural effusion, not elsewhere classified; K74.60 Unspecified cirrhosis of liver; Z20.822 Contact with and (suspected) exposure to COVID-19; D64.9 Anemia, unspecified; D69.59 Other secondary thrombocytopenia; R53.81 Other malaise; E03.9 Hypothyroidism, unspecified; Z90.49 Acquired absence of other specified parts of digestive tract
CPT/HCPCS: 36415; 36430; 36600; 70450; 71045; 76700; 80048; 80053; 80305; 81001; 82140; 82150; 82270; 82550; 82803; 82948; 83540; 83550; 83605; 83615; 83735; 84100; 84145; 84155; 84157; 84484; 85014; 85018; 85025; 85027; 85610; 85730; 86140; 86850; 86900; 86901; 86923; 87040; 87071; 87205; 87635; 87804; 89051; 93005; 93306; 93356; 93970; 94640; C9113; G0378; G0481; J2354; J2543; J3411; J3430; J3490; J7120; P9016; P9047

== ENCOUNTER 2022-04-20 07:55 | Inpatient (IN) | payer OTHER ==
[~2022-04-20] VITALS: Ht 152.4 cm; Wt 69.5 kg
[~2022-04-20 07:55] MED LIST changes: -LEVO750T46 PO
[2022-04-20 08:35] LABS: BASOPHILS % (AUTO) 0.6 % (0.0-5.0); EOSINOPHILS % (AUTO) 1.9 % (0.0-8.0); HEMATOCRIT 25.7 % (42-54); LYMPHOCYTES % (AUTO) 44.1 % (21.0-51.0); MEAN CORPUSCULAR HEMOGLOBIN 31.2 pg (27.0-33.0); MEAN CORPUSCULAR HGB CONC 34.2 g/dL (32.0-36.0); MEAN CORPUSCULAR VOLUME 91.1 fL (79-99); MONOCYTES % (AUTO) 13.5 % (3.0-13.0); NEUTROPHILS % (AUTO) 39.7 % (40.0-77.0); PLATELET COUNT (AUTO) 92 K/uL (130-400); RED BLOOD CELL COUNT(AUTO) 2.82 MIL/uL (4.50-6.20); RED CELL DISTRIBUTION WIDTH 20.6 % (11.0-15.5); WHITE BLOOD COUNT (AUTO) 4.7 K/uL (4.8-10.8)
[2022-04-20 08:41] LABS: APPEARANCE,URINE CLEAR (CLEAR); BILIRUBIN,URINE NEGATIVE (NEGATIVE); COLOR,URINE YELLOW (YELLOW); GLUCOSE, URINE (UA) NEGATIVE (NEGATIVE); KETONES,URINE NEGATIVE (NEGATIVE); LEUKOCYTE ESTERASE ,URINE NEGATIVE (NEGATIVE); NITRATE,URINE NEGATIVE (NEGATIVE); OCCULT BLOOD,URINE MODERATE (NEGATIVE); PROTEIN,URINE NEGATIVE (NEGATIVE); UROBILINOGEN,URINE 0.2 mg/dL (0.2-1.0)
[2022-04-20 08:46] LABS: CREATININE 1.9 mg/dL (0.5-1.5); POTASSIUM 4.7 mmol/L (3.5-5.1)
[2022-04-20 08:48] LABS: INR 1.26 (0.85-1.15); PROTHROMBIN TIME 13.6 SEC (9.6-11.6)
[2022-04-20 08:49] LABS: PARTIAL THROMBOPLASTIN TIME 37.5 SEC (26.3-35.5)
[2022-04-20 08:50] LABS: ALBUMIN 2.9 g/dL (3.5-5.0); MAGNESIUM 1.8 mg/dL (1.80-2.40); TOTAL PROTEIN, SERUM 6.1 g/dL (6.0-8.3)
[2022-04-20 09:38] LABS: BACTERIA,URINE Rare /HPF (None Seen); SQUAMOUS EPITHELIAL CELL,UR Rare /HPF (0-2); WBC,URINE 0-1 /HPF (0-1)
[2022-04-20] MEDS ORDERED: COMPOUND IV MISC 1 EACH IVSOLN MISC PRN (10:30)
[2022-04-20] MEDS ORDERED: 0.9%NACL 1000ML 1,000 ML IV SCH (10:30)
[2022-04-20] MEDS ORDERED: ONDANSETRON 4MG INJ IV PRN (10:30)
[2022-04-20 10:36] LABS: RETICULOCYTE % (AUTO) 4.73 % (0.42-2.23)
[2022-04-20 10:48] LABS: % IRON SATURATION 103.1 % (30-44)
[2022-04-20 11:08] LABS: THYROID STIMULATING HORMONE 3.81 uIU/mL (0.36-3.74)
[2022-04-20] MEDS: CEFTRIAXONE 1G VIAL IV SCH (11:31)
[2022-04-20] MEDS: PHYTONADIONE 10 MG in 0.9%NACL 50ML 50 ML IVPB SCH (11:31)
[2022-04-20] MEDS ORDERED: LACTULOSE 20 GM/30 ML UDCUP ONE (11:55)
[2022-04-20] MEDS: LACTULOSE 20 GM/30 ML UDCUP PO SCH ×3 (12:20→20:37)
[2022-04-20] MEDS: RIFAXIMIN 550 MG TABLET PO SCH ×2 (12:20→20:37)
[2022-04-20 15:00] VITALS: BP 136/82
[2022-04-20] MEDS: FAMOTIDINE 20MG VIAL IV SCH (20:37)
[2022-04-20 21:02] VITALS: BP 137/84
[2022-04-20 23:52] VITALS: BP 128/72
[2022-04-21 04:50] VITALS: BP 135/83
[2022-04-21] MEDS ORDERED: PANT40TA54 PO (05:48)
[2022-04-21] MEDS ORDERED: FOLI1 PO (05:48)
[2022-04-21] MEDS ORDERED: SPIR50TA5 PO (05:48)
[2022-04-21] MEDS ORDERED: LACT10SO5 PO (05:48)
[2022-04-21] MEDS ORDERED: LEVO25CA4 PO (05:48)
[2022-04-21] MEDS ORDERED: FURO40TA5 PO (05:48)
[2022-04-21] MEDS ORDERED: CA C1TAB74 PO (05:49)
[2022-04-21 08:00] VITALS: BP_SYST 143; BP_SYST 144; BP_DIAS 88; BP_DIAS 93
[2022-04-21] MEDS: LACTULOSE 20 GM/30 ML UDCUP PO SCH ×3 (08:58→21:49)
[2022-04-21] MEDS: CEFTRIAXONE 1G VIAL IV SCH (08:59)
[2022-04-21] MEDS: RIFAXIMIN 550 MG TABLET PO SCH ×2 (08:59→21:49)
[2022-04-21] MEDS: FAMOTIDINE 20MG VIAL IV SCH (08:59)
[2022-04-21 10:27] LABS: HEMATOCRIT 23.7 % (42-54); MEAN CORPUSCULAR HEMOGLOBIN 30.5 pg (27.0-33.0); MEAN CORPUSCULAR HGB CONC 33.3 g/dL (32.0-36.0); MEAN CORPUSCULAR VOLUME 91.5 fL (79-99); RED BLOOD CELL COUNT(AUTO) 2.59 MIL/uL (4.50-6.20); RED CELL DISTRIBUTION WIDTH 20.4 % (11.0-15.5)
[2022-04-21 10:38] LABS: CREATININE 1.6 mg/dL (0.5-1.5); MAGNESIUM 1.7 mg/dL (1.80-2.40); PHOSPHORUS 4.3 mg/dL (2.5-4.9); POTASSIUM 3.8 mmol/L (3.5-5.1)
[2022-04-21 10:42] LABS: INR 1.27 (0.85-1.15); PROTHROMBIN TIME 13.7 SEC (9.6-11.6)
[2022-04-21 10:43] LABS: PARTIAL THROMBOPLASTIN TIME 39.6 SEC (26.3-35.5)
[2022-04-21] MEDS ORDERED: EPOETIN ALFA-EPBX (NON-ESRD) 10,000 UNIT/ML VIAL SQ SCH (11:00)
[2022-04-21 11:32] VITALS: BP 132/86
[2022-04-21] MEDS ORDERED: THIAMINE HCL 100 MG/ML 2ML VIAL IVP SCH (12:00)
[2022-04-21] MEDS ORDERED: FOLIC ACID 5 MG/ML VIAL IV ONE (12:00)
[2022-04-21] MEDS: PHYTONADIONE 10 MG in 0.9%NACL 50ML 50 ML IVPB SCH (12:59)
[2022-04-21] MEDS: PANTOPRAZOLE 40 MG/VIAL IVP SCH ×2 (12:59→21:49)
[2022-04-21 16:00] VITALS: BP 140/92
[2022-04-21] MEDS ORDERED: SPIRONOLACTONE 25 MG TAB PO SCH (17:30)
[2022-04-21] MEDS ORDERED: LACTULOSE 20 GM/30 ML UDCUP ONE (17:34)
[2022-04-21] MEDS: FUROSEMIDE 40MG VIAL IV SCH (17:57)
[2022-04-21] MEDS ORDERED: MAGNESIUM CHLORIDE 70 MG TABLET.SA PO SCH (18:00)
[2022-04-21] MEDS ORDERED: MAGNESIUM 2GM PREMIX 50ML 50 ML IV SCH (18:00)
[2022-04-21 20:00] VITALS: BP 141/84
[2022-04-22] VITALS: BP 130/80
[2022-04-22 04:00] VITALS: BP 144/80
[2022-04-22 04:19] LABS: BASOPHILS % (AUTO) 0.8 % (0.0-5.0); EOSINOPHILS % (AUTO) 4.3 % (0.0-8.0); HEMATOCRIT 23.4 % (42-54); LYMPHOCYTES % (AUTO) 30.6 % (21.0-51.0); MEAN CORPUSCULAR HGB CONC 33.3 g/dL (32.0-36.0); MEAN CORPUSCULAR VOLUME 92.9 fL (79-99); MONOCYTES % (AUTO) 14.4 % (3.0-13.0); NEUTROPHILS % (AUTO) 49.1 % (40.0-77.0); PLATELET COUNT (AUTO) 78 K/uL (130-400); RED BLOOD CELL COUNT(AUTO) 2.52 MIL/uL (4.50-6.20); RED CELL DISTRIBUTION WIDTH 19.9 % (11.0-15.5); WHITE BLOOD COUNT (AUTO) 3.8 K/uL (4.8-10.8)
[2022-04-22 04:33] LABS: INR 1.31 (0.85-1.15); PROTHROMBIN TIME 14.1 SEC (9.6-11.6)
[2022-04-22 04:34] LABS: ALBUMIN 2.4 g/dL (3.5-5.0); CREATININE 1.5 mg/dL (0.5-1.5); PARTIAL THROMBOPLASTIN TIME 39.6 SEC (26.3-35.5); POTASSIUM 3.5 mmol/L (3.5-5.1); TOTAL PROTEIN, SERUM 5.4 g/dL (6.0-8.3)
[2022-04-22] MEDS: FUROSEMIDE 40MG VIAL IV SCH (05:18)
[2022-04-22 07:59] VITALS: BP 147/87
[2022-04-22] MEDS: LACTULOSE 20 GM/30 ML UDCUP PO SCH ×2 (08:24→14:00)
[2022-04-22] MEDS: PANTOPRAZOLE 40 MG/VIAL IVP SCH (08:24)
[2022-04-22] MEDS: RIFAXIMIN 550 MG TABLET PO SCH (08:25)
[2022-04-22] MEDS ORDERED: COMPOUND IV REFRIGERATED 1 EACH IVSOLN MISC PRN (08:30)
[2022-04-22] MEDS ORDERED: MAGNESIUM CHLORIDE 70 MG TABLET.SA PO SCH (09:00)
[2022-04-22] MEDS ORDERED: SPIRONOLACTONE 25 MG TAB PO SCH (09:00)
[2022-04-22] MEDS ORDERED: THIAMINE HCL 100 MG/ML 2ML VIAL IVP SCH (09:00)
[2022-04-22] MEDS ORDERED: FOLIC ACID 5 MG/ML VIAL IV SCH (09:00)
[2022-04-22] MEDS: CEFTRIAXONE 1G VIAL IV SCH (10:39)
[2022-04-22] MEDS: PHYTONADIONE 10 MG in 0.9%NACL 50ML 50 ML IVPB SCH (10:39)
[2022-04-22 11:18] VITALS: BP_SYST 129; BP_SYST 150; BP_DIAS 84
[2022-04-22] MEDS ORDERED: RIFA550T PO (11:21)
[2022-04-22] MEDS ORDERED: LACT PO (11:21)
== END 2022-04-22 19:00 | disposition home or self-care (01) | DRG 442 ==
LOC: EDH 07:55 → EDHIP 07:56 → 4CH 15:54
PROVIDERS: ADMIT Internal Medicine; ATTEND Internal Medicine
DX: K72.90 Hepatic failure, unspecified without coma (principal); D68.4 Acquired coagulation factor deficiency; J90 Pleural effusion, not elsewhere classified; D64.9 Anemia, unspecified; D69.6 Thrombocytopenia, unspecified; I10 Essential (primary) hypertension; Z79.899 Other long term (current) drug therapy
CPT/HCPCS: 36415; 71045; 80048; 80053; 81001; 82140; 82550; 82607; 82728; 82746; 82948; 83540; 83550; 83605; 83735; 84100; 84443; 84484; 85025; 85027; 85045; 85610; 85730; 87040; 87088; 93005; 97039; C9113; G0378; J0696; J1940; J3411; J3430; J3475; J3490; J7030

== ENCOUNTER 2022-04-26 19:51 | Emergency (ER) | payer OTHER ==
[~2022-04-26 19:51] MED LIST changes: +CA C1TAB74 PO; +FOLI1 PO; +FURO40TA5 PO; +LACT PO; +LACT10SO5 PO; -LACT10SO9 PO; +LEVO25CA4 PO; +RIFA550T PO; +SPIR50TA5 PO
[2022-04-26 20:34] LABS: HEMATOCRIT 26.1 % (42-54); MEAN CORPUSCULAR HEMOGLOBIN 31.4 pg (27.0-33.0); MEAN CORPUSCULAR HGB CONC 34.5 g/dL (32.0-36.0); MEAN CORPUSCULAR VOLUME 90.9 fL (79-99); PLATELET COUNT (AUTO) 141 K/uL (130-400); RED BLOOD CELL COUNT(AUTO) 2.87 MIL/uL (4.50-6.20); RED CELL DISTRIBUTION WIDTH 20.7 % (11.0-15.5); WHITE BLOOD COUNT (AUTO) 5.4 K/uL (4.8-10.8)
[2022-04-26 20:41] LABS: CREATININE 2.2 mg/dL (0.5-1.5); POTASSIUM 4.1 mmol/L (3.5-5.1)
[2022-04-26 20:44] LABS: BASOPHILS % (AUTO) 0.6 % (0.0-5.0); EOSINOPHILS % (AUTO) 1.3 % (0.0-8.0); LYMPHOCYTES % (AUTO) 24.6 % (21.0-51.0); MONOCYTES % (AUTO) 11.7 % (3.0-13.0); NEUTROPHILS % (AUTO) 61.4 % (40.0-77.0)
[2022-04-26 20:45] LABS: ALBUMIN 3.1 g/dL (3.5-5.0); TOTAL PROTEIN, SERUM 6.7 g/dL (6.0-8.3)
[2022-04-26 20:48] LABS: INR 1.27 (0.85-1.15); PROTHROMBIN TIME 13.7 SEC (9.6-11.6)
[2022-04-26 20:49] LABS: PARTIAL THROMBOPLASTIN TIME 31.2 SEC (26.3-35.5)
[2022-04-27 01:15] VITALS: BP 138/75
== END 2022-04-27 01:46 | disposition home or self-care (01) ==
LOC: EDH 19:51
DX: K72.90 Hepatic failure, unspecified without coma (principal); R41.82 Altered mental status, unspecified; I10 Essential (primary) hypertension; Z20.822 Contact with and (suspected) exposure to COVID-19; Z79.899 Other long term (current) drug therapy
CPT/HCPCS: 99285; 71045; 87635; 84484; 80053; 82140; 85025; 85610; 85730; 86850; 86900; 86901; 36415; 93005; C9803

== ENCOUNTER 2022-04-27 18:26 | Inpatient (IN) | payer OTHER ==
[~2022-04-27] VITALS: Ht 170.2 cm; Wt 56.3 kg
[2022-04-27] MEDS ORDERED: LACTULOSE 20 GM/30 ML UDCUP PR SCH (19:00)
[2022-04-27 19:22] LABS: CREATININE 2.1 mg/dL (0.5-1.5)
[2022-04-27 19:25] LABS: BASOPHILS % (AUTO) 0.7 % (0.0-5.0); EOSINOPHILS % (AUTO) 2.8 % (0.0-8.0); HEMATOCRIT 26.6 % (42-54); LYMPHOCYTES % (AUTO) 32.3 % (21.0-51.0); MEAN CORPUSCULAR HEMOGLOBIN 31.8 pg (27.0-33.0); MEAN CORPUSCULAR VOLUME 91.1 fL (79-99); MONOCYTES % (AUTO) 10.5 % (3.0-13.0); NEUTROPHILS % (AUTO) 53.5 % (40.0-77.0); PLATELET COUNT (AUTO) 148 K/uL (130-400); RED BLOOD CELL COUNT(AUTO) 2.92 MIL/uL (4.50-6.20); RED CELL DISTRIBUTION WIDTH 20.8 % (11.0-15.5); WHITE BLOOD COUNT (AUTO) 5.7 K/uL (4.8-10.8)
[2022-04-27] MEDS ORDERED: ONDANSETRON 4MG INJ IV PRN (19:30)
[2022-04-27] MEDS: LACTULOSE 20 GM/30 ML UDCUP PO SCH (19:30)
[2022-04-27 19:31] LABS: ALBUMIN 3.1 g/dL (3.5-5.0)
[2022-04-27] MEDS: 0.9%NACL 1000ML 1,000 ML IV SCH (23:36)
[2022-04-28] VITALS (7 sets, daily range): BP systolic 125–149; BP diastolic 80–90
[2022-04-28] MEDS: LACTULOSE 20 GM/30 ML UDCUP PO SCH ×4 (02:32→19:41)
[2022-04-28 05:15] LABS: BASOPHILS % (AUTO) 0.7 % (0.0-5.0); EOSINOPHILS % (AUTO) 2.9 % (0.0-8.0); HEMATOCRIT 26.8 % (42-54); LYMPHOCYTES % (AUTO) 32.7 % (21.0-51.0); MEAN CORPUSCULAR HEMOGLOBIN 31.5 pg (27.0-33.0); MEAN CORPUSCULAR HGB CONC 34.3 g/dL (32.0-36.0); MEAN CORPUSCULAR VOLUME 91.8 fL (79-99); MONOCYTES % (AUTO) 10.8 % (3.0-13.0); NEUTROPHILS % (AUTO) 52.7 % (40.0-77.0); PLATELET COUNT (AUTO) 136 K/uL (130-400); RED BLOOD CELL COUNT(AUTO) 2.92 MIL/uL (4.50-6.20); RED CELL DISTRIBUTION WIDTH 20.7 % (11.0-15.5); WHITE BLOOD COUNT (AUTO) 5.5 K/uL (4.8-10.8)
[2022-04-28 05:26] LABS: CREATININE 2.1 mg/dL (0.5-1.5); PHOSPHORUS 4.8 mg/dL (2.5-4.9); POTASSIUM 3.9 mmol/L (3.5-5.1)
[2022-04-28] MEDS: FAMOTIDINE 20MG VIAL IV SCH (09:14)
[2022-04-28] MEDS ORDERED: KCL 20 MEQ ERTAB PO PRN (13:00)
[2022-04-28] MEDS: SPIRONOLACTONE 25 MG TAB PO SCH (19:41)
[2022-04-28] MEDS: RIFAXIMIN 550 MG TABLET PO SCH (19:41)
[2022-04-28] MEDS: 0.9%NACL 1000ML 1,000 ML IV SCH (19:42)
[2022-04-28] MEDS: FUROSEMIDE 40 MG TABLET PO SCH (19:42)
[2022-04-29] MEDS: LACTULOSE 20 GM/30 ML UDCUP PO SCH ×5 (01:00→20:10)
[2022-04-29 04:48] VITALS: BP 132/83
[2022-04-29 05:21] LABS: HEMATOCRIT 23.9 % (42-54); MEAN CORPUSCULAR HEMOGLOBIN 31.3 pg (27.0-33.0); MEAN CORPUSCULAR HGB CONC 33.9 g/dL (32.0-36.0); MEAN CORPUSCULAR VOLUME 92.3 fL (79-99); RED BLOOD CELL COUNT(AUTO) 2.59 MIL/uL (4.50-6.20); RED CELL DISTRIBUTION WIDTH 20.8 % (11.0-15.5); WHITE BLOOD COUNT (AUTO) 4.8 K/uL (4.8-10.8)
[2022-04-29 05:33] LABS: CREATININE 1.9 mg/dL (0.5-1.5); POTASSIUM 3.7 mmol/L (3.5-5.1)
[2022-04-29] MEDS: LEVOTHYROXINE 25 MCG TABLET PO SCH (07:30)
[2022-04-29 08:00] VITALS: BP 125/74
[2022-04-29] MEDS: FUROSEMIDE 40 MG TABLET PO SCH ×2 (09:00→21:00)
[2022-04-29] MEDS: FAMOTIDINE 20MG VIAL IV SCH (09:00)
[2022-04-29] MEDS: RIFAXIMIN 550 MG TABLET PO SCH ×2 (09:00→21:00)
[2022-04-29] MEDS: SPIRONOLACTONE 25 MG TAB PO SCH ×2 (09:00→21:00)
[2022-04-29] MEDS: Vitamin B Complex/Vit C/Folic Acid PO SCH (09:00)
[2022-04-29] MEDS: [UNRECOGNIZED DRUG - OTHER] PO SCH (09:00)
[2022-04-29] MEDS: FOLIC ACID 1 MG TABLET PO SCH (09:00)
[2022-04-29] MEDS ORDERED: LACTULOSE 20 GM/30 ML UDCUP PR SCH (10:00)
[2022-04-29 12:00] VITALS: BP 119/68
[2022-04-29 16:00] VITALS: BP 103/49
[2022-04-29 20:41] VITALS: BP 149/92
[2022-04-29] MEDS: POTASSIUM CHLORIDE 10MEQ/100ML 100 ML IV PRN (22:21)
[2022-04-29] MEDS: LIDOCAINE HCL-MPF 1% 2ML VIAL IV PRN (22:21)
[2022-04-30 00:14] VITALS: BP 92/50
[2022-04-30 04:27] VITALS: BP 151/99
[2022-04-30] MEDS: LACTULOSE 20 GM/30 ML UDCUP PO SCH ×4 (06:10→20:27)
[2022-04-30] MEDS: LEVOTHYROXINE 25 MCG TABLET PO SCH (06:27)
[2022-04-30 07:15] VITALS: BP 152/96
[2022-04-30] MEDS: [UNRECOGNIZED DRUG - OTHER] PO SCH (09:00)
[2022-04-30] MEDS ORDERED: GLUCAGON 1MG KIT 1 MG ML IM PRN (10:30)
[2022-04-30] MEDS ORDERED: DEXTROSE 50%-WATER 50 ML DISP.SYRIN IV PRN (10:30)
[2022-04-30] MEDS ORDERED: LACTULOSE 20 GM/30 ML UDCUP PR SCH (10:30)
[2022-04-30 10:33] LABS: HEMATOCRIT 28.4 % (42-54); MEAN CORPUSCULAR HEMOGLOBIN 31.5 pg (27.0-33.0); MEAN CORPUSCULAR HGB CONC 33.8 g/dL (32.0-36.0); MEAN CORPUSCULAR VOLUME 93.1 fL (79-99); RED BLOOD CELL COUNT(AUTO) 3.05 MIL/uL (4.50-6.20); RED CELL DISTRIBUTION WIDTH 20.7 % (11.0-15.5); WHITE BLOOD COUNT (AUTO) 8.6 K/uL (4.8-10.8)
[2022-04-30] MEDS: FAMOTIDINE 20MG VIAL IV SCH (10:42)
[2022-04-30] MEDS: SPIRONOLACTONE 25 MG TAB PO SCH ×2 (10:48→20:26)
[2022-04-30] MEDS: Vitamin B Complex/Vit C/Folic Acid PO SCH (10:48)
[2022-04-30] MEDS: FUROSEMIDE 40 MG TABLET PO SCH ×2 (10:48→20:26)
[2022-04-30] MEDS: RIFAXIMIN 550 MG TABLET PO SCH ×2 (10:48→20:25)
[2022-04-30 10:52] LABS: CREATININE 1.9 mg/dL (0.5-1.5); POTASSIUM 3.5 mmol/L (3.5-5.1)
[2022-04-30] MEDS: FOLIC ACID 1 MG TABLET PO SCH (10:55)
[2022-04-30 11:15] VITALS: BP 150/97
[2022-04-30 15:15] VITALS: BP 155/90
[2022-04-30 21:21] VITALS: BP 139/93
[2022-05-01 00:06] VITALS: BP 161/99
[2022-05-01] MEDS: LACTULOSE 20 GM/30 ML UDCUP PO SCH ×4 (01:28→18:04)
[2022-05-01 04:10] VITALS: BP 155/82
[2022-05-01 05:13] LABS: HEMATOCRIT 26.2 % (42-54); MEAN CORPUSCULAR HEMOGLOBIN 32.2 pg (27.0-33.0); MEAN CORPUSCULAR HGB CONC 34.7 g/dL (32.0-36.0); MEAN CORPUSCULAR VOLUME 92.6 fL (79-99); RED BLOOD CELL COUNT(AUTO) 2.83 MIL/uL (4.50-6.20); RED CELL DISTRIBUTION WIDTH 20.5 % (11.0-15.5)
[2022-05-01 05:36] LABS: CREATININE 2.1 mg/dL (0.5-1.5)
[2022-05-01 05:44] LABS: POTASSIUM 2.8 mmol/L (3.5-5.1)
[2022-05-01] MEDS: POTASSIUM CHLORIDE 10MEQ/100ML 100 ML IV PRN (06:05)
[2022-05-01] MEDS: LIDOCAINE HCL-MPF 1% 2ML VIAL IV PRN (06:05)
[2022-05-01] MEDS: LEVOTHYROXINE 25 MCG TABLET PO SCH (06:41)
[2022-05-01] MEDS ORDERED: POTASSIUM CHLORIDE 10% ELIXIR 20 MEQ/15 ML UDCUP PO ONE (08:30)
[2022-05-01] MEDS: [UNRECOGNIZED DRUG - OTHER] PO SCH (09:00)
[2022-05-01] MEDS: LACTULOSE 20 GM/30 ML UDCUP PR SCH (09:05)
[2022-05-01] MEDS: FAMOTIDINE 20MG VIAL IV SCH (09:06)
[2022-05-01] MEDS: RIFAXIMIN 550 MG TABLET PO SCH ×2 (09:06→21:28)
[2022-05-01] MEDS: FUROSEMIDE 40 MG TABLET PO SCH ×2 (09:07→21:28)
[2022-05-01] MEDS: FOLIC ACID 1 MG TABLET PO SCH (09:07)
[2022-05-01] MEDS: SPIRONOLACTONE 25 MG TAB PO SCH ×2 (09:07→21:28)
[2022-05-01] MEDS: Vitamin B Complex/Vit C/Folic Acid PO SCH (09:07)
[2022-05-01 09:27] LABS: MAGNESIUM 1.7 mg/dL (1.80-2.40)
[2022-05-01] MEDS ORDERED: MAGNESIUM 2GM PREMIX 50ML 50 ML IV PRN (11:00)
[2022-05-01 15:43] LABS: MAGNESIUM 2.6 mg/dL (1.80-2.40); POTASSIUM 3.2 mmol/L (3.5-5.1)
[2022-05-01] MEDS: POTASSIUM CHLORIDE 10% ELIXIR 20 MEQ/15 ML UDCUP PO PRN ×2 (16:00→17:15)
[2022-05-01 16:09] VITALS: BP 143/79
[2022-05-01 20:11] VITALS: BP 141/101
[2022-05-01 23:16] VITALS: BP 165/95
[2022-05-02] MEDS: LACTULOSE 20 GM/30 ML UDCUP PO SCH ×2 (01:51→07:00)
[2022-05-02 03:18] VITALS: BP 136/81
[2022-05-02 06:40] LABS: HEMATOCRIT 26.5 % (42-54); MEAN CORPUSCULAR HEMOGLOBIN 32.2 pg (27.0-33.0); MEAN CORPUSCULAR HGB CONC 35.1 g/dL (32.0-36.0); MEAN CORPUSCULAR VOLUME 91.7 fL (79-99); RED BLOOD CELL COUNT(AUTO) 2.89 MIL/uL (4.50-6.20); RED CELL DISTRIBUTION WIDTH 20.1 % (11.0-15.5); WHITE BLOOD COUNT (AUTO) 7.1 K/uL (4.8-10.8)
[2022-05-02 06:51] LABS: CREATININE 1.8 mg/dL (0.5-1.5); MAGNESIUM 2.3 mg/dL (1.80-2.40); POTASSIUM 3.7 mmol/L (3.5-5.1)
[2022-05-02] MEDS: LEVOTHYROXINE 25 MCG TABLET PO SCH (06:59)
[2022-05-02 07:15] VITALS: BP 158/97
[2022-05-02] MEDS: [UNRECOGNIZED DRUG - OTHER] PO SCH (09:00)
[2022-05-02] MEDS ORDERED: LACT10SO9 PO (10:07)
[2022-05-02] MEDS: FOLIC ACID 1 MG TABLET PO SCH (10:28)
[2022-05-02] MEDS: RIFAXIMIN 550 MG TABLET PO SCH (10:28)
[2022-05-02] MEDS: FUROSEMIDE 40 MG TABLET PO SCH (10:28)
[2022-05-02] MEDS: SPIRONOLACTONE 25 MG TAB PO SCH (10:28)
[2022-05-02] MEDS: Vitamin B Complex/Vit C/Folic Acid PO SCH (10:28)
[2022-05-02] MEDS: LACTULOSE 20 GM/30 ML UDCUP PR SCH (10:29)
[2022-05-02] MEDS: FAMOTIDINE 20MG VIAL IV SCH (10:29)
[2022-05-02 11:10] VITALS: BP 147/94
== END 2022-05-02 14:00 | disposition home or self-care (01) | DRG 442 ==
LOC: EDH 18:26 → EDHIP 18:27 → 3AH 23:52
PROVIDERS: ADMIT Hospitalist; ATTEND Hospitalist
DX: K72.90 Hepatic failure, unspecified without coma (principal); D61.818 Other pancytopenia; N17.9 Acute kidney failure, unspecified; D64.9 Anemia, unspecified; Z91.19 Patient's noncompliance with other medical treatment and regimen; E83.42 Hypomagnesemia; D69.6 Thrombocytopenia, unspecified
CPT/HCPCS: 36415; 80048; 80053; 82140; 82948; 83735; 84100; 84132; 84484; 85025; 85027; G0378; J2405; J3475; J3490; J7030

== ENCOUNTER 2022-05-05 09:04 | Inpatient (IN) | payer OTHER ==
[~2022-05-05] VITALS: Ht 162.6 cm; Wt 57.6 kg
[~2022-05-05 09:04] MED LIST changes: -LACT PO; -LACT10SO5 PO; +LACT10SO9 PO
[2022-05-05 10:02] LABS: CARBON DIOXIDE 24 mmol/L (21-32); CHLORIDE 97 mmol/L (101-111); CREATININE 1.8 mg/dL (0.5-1.5); GLOMERULAR FILTR. RATE CALC 42 mL/min (>60); GLUCOSE,RANDOM 117 mg/dL (70-105); POTASSIUM 4.4 mmol/L (3.5-5.1); SODIUM SERUM 131 mmol/L (136-145); UREA NITROGEN, BLOOD 23 mg/dL (7-18)
[2022-05-05 10:04] LABS: BASOPHILS % (AUTO) 0.4 % (0.0-5.0); EOSINOPHILS % (AUTO) 1.1 % (0.0-8.0); LYMPHOCYTES % (AUTO) 30.2 % (21.0-51.0); MEAN CORPUSCULAR HEMOGLOBIN 31.9 pg (27.0-33.0); MEAN CORPUSCULAR HGB CONC 34.7 g/dL (32.0-36.0); MONOCYTES % (AUTO) 10.4 % (3.0-13.0); NEUTROPHILS % (AUTO) 57.3 % (40.0-77.0); PLATELET COUNT (AUTO) 140 K/uL (130-400); RED BLOOD CELL COUNT(AUTO) 3.26 MIL/uL (4.50-6.20); RED CELL DISTRIBUTION WIDTH 21.3 % (11.0-15.5); WHITE BLOOD COUNT (AUTO) 7.2 K/uL (4.8-10.8)
[2022-05-05 10:08] LABS: ALANINE AMINOTRANSFERASE 50 U/L (12-78); ALBUMIN 2.9 g/dL (3.5-5.0); ALCOHOL, BLOOD 5 mg/dL (0-10); ASPARTATE AMINOTRANSFERASE 75 U/L (10-37); TOTAL PROTEIN, SERUM 6.9 g/dL (6.0-8.3)
[2022-05-05 10:18] LABS: ACETAMINOPHEN < 1 mcg/mL (10-29); AMMONIA 208 umol/L (11-32); SALICYLATE < 2.8 mg/dL (2.8-20.0)
[2022-05-05] MEDS ORDERED: LACTULOSE 20 GM/30 ML UDCUP PR STA (10:30)
[2022-05-05 10:37] LABS: APPEARANCE,URINE CLEAR (CLEAR); BILIRUBIN,URINE NEGATIVE (NEGATIVE); COLOR,URINE YELLOW (YELLOW); GLUCOSE, URINE (UA) NEGATIVE (NEGATIVE); KETONES,URINE NEGATIVE (NEGATIVE); LEUKOCYTE ESTERASE ,URINE NEGATIVE (NEGATIVE); NITRATE,URINE NEGATIVE (NEGATIVE); OCCULT BLOOD,URINE LARGE (NEGATIVE); PROTEIN,URINE NEGATIVE (NEGATIVE); UROBILINOGEN,URINE 0.2 mg/dL (0.2-1.0)
[2022-05-05 10:42] LABS: AMPHET/METH SCREEN,URINE NEGATIVE (NEGATIVE); BACTERIA,URINE Rare /HPF (None Seen); BARBITURATE SCREEN, URINE NEGATIVE (NEGATIVE); BENZODIAZEPINES SCREEN,URINE NEGATIVE (NEGATIVE); CANNABINOID SCREEN,URINE NEGATIVE (NEGATIVE); COCAINE SCREEN,URINE NEGATIVE (NEGATIVE); OPIATE SCREEN,URINE NEGATIVE (NEGATIVE); PHENCYCLIDINE SCREEN,URINE NEGATIVE (NEGATIVE); RBC,URINE 26-50 /HPF (0-1); SQUAMOUS EPITHELIAL CELL,UR Rare /HPF (0-2); WBC,URINE 0-1 /HPF (0-1)
[2022-05-05] MEDS ORDERED: ONDANSETRON 4MG INJ IV PRN (12:30)
[2022-05-05] MEDS: CEFTRIAXONE 1G VIAL IV SCH (13:28)
[2022-05-05 13:35] LABS: INR 1.29 (0.85-1.15); PROTHROMBIN TIME 13.9 SEC (9.6-11.6)
[2022-05-05] MEDS: LACTULOSE 20 GM/30 ML UDCUP PO SCH ×2 (14:00→21:00)
[2022-05-05] MEDS: LACTULOSE 20 GM/30 ML UDCUP PR SCH ×2 (14:43→22:09)
[2022-05-05] MEDS: RIFAXIMIN 550 MG TABLET PO SCH (21:00)
[2022-05-05] MEDS: FAMOTIDINE 20MG VIAL IV SCH (21:41)
[2022-05-06] VITALS (7 sets, daily range): BP systolic 107–140; BP diastolic 71–88
[2022-05-06 05:28] LABS: BASOPHILS % (AUTO) 0.7 % (0.0-5.0); EOSINOPHILS % (AUTO) 2.5 % (0.0-8.0); HEMATOCRIT 25.1 % (42-54); LYMPHOCYTES % (AUTO) 27.1 % (21.0-51.0); MEAN CORPUSCULAR HEMOGLOBIN 32.5 pg (27.0-33.0); MEAN CORPUSCULAR HGB CONC 35.1 g/dL (32.0-36.0); MEAN CORPUSCULAR VOLUME 92.6 fL (79-99); MONOCYTES % (AUTO) 13.9 % (3.0-13.0); NEUTROPHILS % (AUTO) 55.6 % (40.0-77.0); PLATELET COUNT (AUTO) 110 K/uL (130-400); RED BLOOD CELL COUNT(AUTO) 2.71 MIL/uL (4.50-6.20); RED CELL DISTRIBUTION WIDTH 21.2 % (11.0-15.5); WHITE BLOOD COUNT (AUTO) 5.7 K/uL (4.8-10.8)
[2022-05-06 05:55] LABS: ALBUMIN 2.5 g/dL (3.5-5.0); CREATININE 1.7 mg/dL (0.5-1.5); POTASSIUM 4.2 mmol/L (3.5-5.1)
[2022-05-06] MEDS: LACTULOSE 20 GM/30 ML UDCUP PR SCH ×2 (06:00)
[2022-05-06] MEDS ORDERED: LACTULOSE 20 GM/30 ML UDCUP PO SCH (06:00)
[2022-05-06] MEDS: RIFAXIMIN 550 MG TABLET PO SCH ×2 (09:33→21:11)
[2022-05-06] MEDS: LACTULOSE 20 GM/30 ML UDCUP PO SCH ×3 (09:33→21:12)
[2022-05-06] MEDS: FAMOTIDINE 20MG VIAL IV SCH ×2 (09:34→21:11)
[2022-05-06] MEDS: CEFTRIAXONE 1G VIAL IV SCH (14:00)
[2022-05-07 04:39] VITALS: BP 137/80
[2022-05-07 05:15] LABS: EOSINOPHILS % (AUTO) 2.2 % (0.0-8.0); LYMPHOCYTES % (AUTO) 30.4 % (21.0-51.0); MEAN CORPUSCULAR HEMOGLOBIN 32.3 pg (27.0-33.0); MEAN CORPUSCULAR HGB CONC 34.6 g/dL (32.0-36.0); MEAN CORPUSCULAR VOLUME 93.4 fL (79-99); MONOCYTES % (AUTO) 15.4 % (3.0-13.0); NEUTROPHILS % (AUTO) 50.8 % (40.0-77.0); PLATELET COUNT (AUTO) 102 K/uL (130-400); RED BLOOD CELL COUNT(AUTO) 2.57 MIL/uL (4.50-6.20); RED CELL DISTRIBUTION WIDTH 20.6 % (11.0-15.5); WHITE BLOOD COUNT (AUTO) 5.1 K/uL (4.8-10.8)
[2022-05-07 05:59] LABS: ALBUMIN 2.5 g/dL (3.5-5.0); POTASSIUM 3.8 mmol/L (3.5-5.1)
[2022-05-07 06:05] LABS: INR 1.24 (0.85-1.15); PROTHROMBIN TIME 13.4 SEC (9.6-11.6)
[2022-05-07 06:06] LABS: PARTIAL THROMBOPLASTIN TIME 35.7 SEC (26.3-35.5)
[2022-05-07 07:35] VITALS: BP 129/83
[2022-05-07] MEDS: RIFAXIMIN 550 MG TABLET PO SCH (09:12)
[2022-05-07] MEDS: FAMOTIDINE 20MG VIAL IV SCH (09:12)
[2022-05-07] MEDS: LACTULOSE 20 GM/30 ML UDCUP PO SCH ×2 (09:13→12:13)
[2022-05-07 10:50] VITALS: BP 118/86
[2022-05-07] MEDS ORDERED: RIFA550T PO (12:11)
[2022-05-07] MEDS ORDERED: PANT40TA54 PO (12:11)
[2022-05-07] MEDS ORDERED: LACT10SO9 PO (12:11)
[2022-05-07] MEDS ORDERED: FOLI0.8T2 PO (12:11)
[2022-05-07] MEDS: CEFTRIAXONE 1G VIAL IV SCH (12:13)
== END 2022-05-07 15:00 | disposition home or self-care (01) | DRG 432 ==
LOC: EDH 09:04 → EDHIP 12:23 → 4AH 05-06 00:17
PROVIDERS: ADMIT Internal Medicine; ATTEND Internal Medicine
DX: K70.31 Alcoholic cirrhosis of liver with ascites (principal); K72.00 Acute and subacute hepatic failure without coma; E87.1 Hypo-osmolality and hyponatremia; Z79.899 Other long term (current) drug therapy; Z91.19 Patient's noncompliance with other medical treatment and regimen
CPT/HCPCS: 36415; 71045; 80053; 80305; 81001; 82140; 85025; 85610; 85730; 93005; G0378; G0481; J0696; J3490

== ENCOUNTER 2022-05-13 11:08 | Inpatient (IN) | payer OTHER ==
[~2022-05-13] VITALS: Ht 152.4 cm; Wt 52.1 kg
[~2022-05-13 11:08] MED LIST changes: -FURO40TA5 PO; -LEVO25CA4 PO; -MIDO10TA PO; -SPIR50TA5 PO
[2022-05-13 11:21] LABS: BASOPHILS % (AUTO) 0.7 % (0.0-5.0); EOSINOPHILS % (AUTO) 3.3 % (0.0-8.0); HEMATOCRIT 22.3 % (42-54); LYMPHOCYTES % (AUTO) 40.9 % (21.0-51.0); MEAN CORPUSCULAR HEMOGLOBIN 33.3 pg (27.0-33.0); MEAN CORPUSCULAR HGB CONC 35.4 g/dL (32.0-36.0); MEAN CORPUSCULAR VOLUME 94.1 fL (79-99); NEUTROPHILS % (AUTO) 43.9 % (40.0-77.0); PLATELET COUNT (AUTO) 64 K/uL (130-400); RED BLOOD CELL COUNT(AUTO) 2.37 MIL/uL (4.50-6.20); RED CELL DISTRIBUTION WIDTH 19.5 % (11.0-15.5); WHITE BLOOD COUNT (AUTO) 4.3 K/uL (4.8-10.8)
[2022-05-13 11:30] LABS: CREATININE 1.4 mg/dL (0.5-1.5); POTASSIUM 4.3 mmol/L (3.5-5.1)
[2022-05-13 11:34] LABS: ALBUMIN 2.3 g/dL (3.5-5.0); TOTAL PROTEIN, SERUM 5.6 g/dL (6.0-8.3)
[2022-05-13 11:49] LABS: PLATELET MORPHOLOGY COMMENT DECREASED
[2022-05-13 11:54] LABS: ALCOHOL, BLOOD < 3 mg/dL (0-10)
[2022-05-13 12:16] LABS: APPEARANCE,URINE TURBID (CLEAR); BILIRUBIN,URINE NEGATIVE (NEGATIVE); COLOR,URINE YELLOW (YELLOW); GLUCOSE, URINE (UA) NEGATIVE (NEGATIVE); KETONES,URINE NEGATIVE (NEGATIVE); LEUKOCYTE ESTERASE ,URINE TRACE (NEGATIVE); NITRATE,URINE NEGATIVE (NEGATIVE); OCCULT BLOOD,URINE LARGE (NEGATIVE); PROTEIN,URINE NEGATIVE (NEGATIVE); UROBILINOGEN,URINE 0.2 mg/dL (0.2-1.0)
[2022-05-13 12:44] LABS: AMPHET/METH SCREEN,URINE NEGATIVE (NEGATIVE); BARBITURATE SCREEN, URINE NEGATIVE (NEGATIVE); BENZODIAZEPINES SCREEN,URINE NEGATIVE (NEGATIVE); CANNABINOID SCREEN,URINE NEGATIVE (NEGATIVE); COCAINE SCREEN,URINE NEGATIVE (NEGATIVE); PHENCYCLIDINE SCREEN,URINE NEGATIVE (NEGATIVE)
[2022-05-13 13:09] LABS: BACTERIA,URINE None Seen /HPF (None Seen); WBC,URINE None Seen /HPF (0-1)
[2022-05-13 14:28] LABS: INR 1.23 (0.85-1.15); PROTHROMBIN TIME 13.3 SEC (9.6-11.6)
[2022-05-13 14:30] LABS: PARTIAL THROMBOPLASTIN TIME 34.2 SEC (26.3-35.5)
[2022-05-13] MEDS ORDERED: ONDANSETRON 4MG INJ IV PRN (15:00)
[2022-05-13] MEDS: CEFTRIAXONE 2GM VIAL IVP SCH (15:43)
[2022-05-13 16:09] VITALS: BP 97/51
[2022-05-13] MEDS: RIFAXIMIN 550 MG TABLET PO SCH ×2 (17:13→20:24)
[2022-05-13] MEDS: LACTULOSE 20 GM/30 ML UDCUP PO SCH ×2 (17:13→20:24)
[2022-05-13 20:07] VITALS: BP 110/53
[2022-05-13] MEDS: MIDODRINE HCL 5 MG TABLET PO SCH (20:24)
[2022-05-13] MEDS: FAMOTIDINE 20MG VIAL IV SCH (20:24)
[2022-05-14] VITALS (7 sets, daily range): BP systolic 107–140; BP diastolic 54–83
[2022-05-14] MEDS: RIFAXIMIN 550 MG TABLET PO SCH ×2 (08:40→21:38)
[2022-05-14] MEDS: FAMOTIDINE 20MG VIAL IV SCH (08:40)
[2022-05-14] MEDS: MIDODRINE HCL 5 MG TABLET PO SCH ×3 (08:40→21:38)
[2022-05-14] MEDS: LACTULOSE 20 GM/30 ML UDCUP PO SCH ×4 (08:40→21:37)
[2022-05-14] MEDS: FAMOTIDINE 20MG TAB PO SCH (11:34)
[2022-05-14 11:51] LABS: BASOPHILS % (AUTO) 0.8 % (0.0-5.0); EOSINOPHILS % (AUTO) 2.5 % (0.0-8.0); HEMATOCRIT 25.2 % (42-54); LYMPHOCYTES % (AUTO) 26.8 % (21.0-51.0); MEAN CORPUSCULAR HEMOGLOBIN 33.1 pg (27.0-33.0); MEAN CORPUSCULAR HGB CONC 35.3 g/dL (32.0-36.0); MEAN CORPUSCULAR VOLUME 93.7 fL (79-99); MONOCYTES % (AUTO) 11.8 % (3.0-13.0); NEUTROPHILS % (AUTO) 57.8 % (40.0-77.0); PLATELET COUNT (AUTO) 80 K/uL (130-400); RED BLOOD CELL COUNT(AUTO) 2.69 MIL/uL (4.50-6.20); RED CELL DISTRIBUTION WIDTH 19.2 % (11.0-15.5)
[2022-05-14 12:05] LABS: CREATININE 1.3 mg/dL (0.5-1.5); POTASSIUM 3.4 mmol/L (3.5-5.1)
[2022-05-14 12:10] LABS: ALBUMIN 2.5 g/dL (3.5-5.0); TOTAL PROTEIN, SERUM 6.1 g/dL (6.0-8.3)
[2022-05-14] MEDS: CEFTRIAXONE 2GM VIAL IVP SCH (14:20)
[2022-05-15 03:43] VITALS: BP 110/69
[2022-05-15 04:48] LABS: BASOPHILS % (AUTO) 0.9 % (0.0-5.0); EOSINOPHILS % (AUTO) 2.5 % (0.0-8.0); HEMATOCRIT 23.6 % (42-54); LYMPHOCYTES % (AUTO) 28.4 % (21.0-51.0); MEAN CORPUSCULAR HEMOGLOBIN 32.4 pg (27.0-33.0); MEAN CORPUSCULAR HGB CONC 34.7 g/dL (32.0-36.0); MEAN CORPUSCULAR VOLUME 93.3 fL (79-99); MONOCYTES % (AUTO) 12.1 % (3.0-13.0); NEUTROPHILS % (AUTO) 55.6 % (40.0-77.0); PLATELET COUNT (AUTO) 83 K/uL (130-400); RED BLOOD CELL COUNT(AUTO) 2.53 MIL/uL (4.50-6.20); RED CELL DISTRIBUTION WIDTH 18.6 % (11.0-15.5); WHITE BLOOD COUNT (AUTO) 4.4 K/uL (4.8-10.8)
[2022-05-15 04:57] LABS: ALBUMIN 2.3 g/dL (3.5-5.0); CREATININE 1.3 mg/dL (0.5-1.5); POTASSIUM 3.5 mmol/L (3.5-5.1); TOTAL PROTEIN, SERUM 5.8 g/dL (6.0-8.3)
[2022-05-15 04:58] LABS: INR 1.23 (0.85-1.15); PROTHROMBIN TIME 13.2 SEC (9.6-11.6)
[2022-05-15 04:59] LABS: % IRON SATURATION 47.7 % (30-44); PARTIAL THROMBOPLASTIN TIME 34.4 SEC (26.3-35.5)
[2022-05-15 07:40] VITALS: BP 120/64
[2022-05-15] MEDS: MIDODRINE HCL 5 MG TABLET PO SCH ×3 (07:41→21:12)
[2022-05-15] MEDS: FAMOTIDINE 20MG TAB PO SCH (07:41)
[2022-05-15] MEDS: RIFAXIMIN 550 MG TABLET PO SCH ×2 (07:41→21:12)
[2022-05-15] MEDS: LACTULOSE 20 GM/30 ML UDCUP PO SCH ×4 (07:41→21:12)
[2022-05-15] MEDS ORDERED: PHARMACY COMMUNICATION MISC SCH (10:30)
[2022-05-15] MEDS ORDERED: Midodrine Hcl PO (10:44)
[2022-05-15] MEDS ORDERED: LACT10SO9 PO (10:44)
[2022-05-15] MEDS ORDERED: PANT40TA54 PO (10:44)
[2022-05-15] MEDS ORDERED: NEOM500T PO (10:44)
[2022-05-15] MEDS ORDERED: FOLI0.8T2 PO (10:44)
[2022-05-15] MEDS ORDERED: LACTULOSE 20 GM/30 ML UDCUP PO SCH (11:00)
[2022-05-15 11:55] VITALS: BP 119/79
[2022-05-15] MEDS: LACTULOSE 20 GM/30 ML UDCUP PR SCH ×2 (15:29→18:01)
[2022-05-15 15:30] VITALS: BP 129/70
[2022-05-15] MEDS: CEFTRIAXONE 2GM VIAL IVP SCH (15:30)
[2022-05-15 20:13] VITALS: BP 112/66
[2022-05-15 23:59] VITALS: BP 138/84
[2022-05-16 03:56] VITALS: BP 134/82
[2022-05-16 04:19] LABS: BASOPHILS % (AUTO) 0.4 % (0.0-5.0); EOSINOPHILS % (AUTO) 1.3 % (0.0-8.0); HEMATOCRIT 26.9 % (42-54); LYMPHOCYTES % (AUTO) 19.5 % (21.0-51.0); MEAN CORPUSCULAR HEMOGLOBIN 33.2 pg (27.0-33.0); MEAN CORPUSCULAR HGB CONC 34.9 g/dL (32.0-36.0); MEAN CORPUSCULAR VOLUME 95.1 fL (79-99); MONOCYTES % (AUTO) 8.7 % (3.0-13.0); NEUTROPHILS % (AUTO) 69.7 % (40.0-77.0); PLATELET COUNT (AUTO) 103 K/uL (130-400); RED BLOOD CELL COUNT(AUTO) 2.83 MIL/uL (4.50-6.20); RED CELL DISTRIBUTION WIDTH 18.8 % (11.0-15.5); WHITE BLOOD COUNT (AUTO) 7.1 K/uL (4.8-10.8)
[2022-05-16 04:30] LABS: ALBUMIN 2.4 g/dL (3.5-5.0); CREATININE 1.4 mg/dL (0.5-1.5); POTASSIUM 3.4 mmol/L (3.5-5.1); TOTAL PROTEIN, SERUM 6.3 g/dL (6.0-8.3)
[2022-05-16 07:00] VITALS: BP 131/85
[2022-05-16] MEDS: MIDODRINE HCL 5 MG TABLET PO SCH ×2 (09:49→13:25)
[2022-05-16] MEDS: LACTULOSE 20 GM/30 ML UDCUP PO SCH ×3 (09:49→17:04)
[2022-05-16] MEDS: RIFAXIMIN 550 MG TABLET PO SCH (09:49)
[2022-05-16] MEDS: FAMOTIDINE 20MG TAB PO SCH (09:49)
[2022-05-16 11:00] VITALS: BP 132/76
[2022-05-16] MEDS: CEFTRIAXONE 2GM VIAL IVP SCH (15:42)
[2022-05-16 15:46] VITALS: BP 127/86
== END 2022-05-16 18:36 | disposition home or self-care (01) | DRG 432 ==
LOC: EDH 11:08 → EDHIP 11:09 → 4CH 16:07
PROVIDERS: ADMIT Internal Medicine; ATTEND Internal Medicine
DX: K70.40 Alcoholic hepatic failure without coma (principal); E43 Unspecified severe protein-calorie malnutrition; E87.1 Hypo-osmolality and hyponatremia; K70.30 Alcoholic cirrhosis of liver without ascites; D64.9 Anemia, unspecified; Z91.19 Patient's noncompliance with other medical treatment and regimen; Z79.899 Other long term (current) drug therapy; Z68.22 Body mass index [BMI] 22.0-22.9, adult
CPT/HCPCS: 36415; 71045; 80053; 80305; 81001; 82140; 82270; 82550; 82728; 82948; 83540; 83550; 83735; 84484; 85025; 85045; 85610; 85730; 93005; G0378; J0696; J2405; J3490

== ENCOUNTER 2022-06-04 16:25 | Inpatient (IN) | payer OTHER ==
[~2022-06-04] VITALS: Ht 157.5 cm; Wt 68.7 kg
[~2022-06-04 16:25] MED LIST changes: -CA C1TAB74 PO; -FOLI1 PO; +Midodrine Hcl PO; +NEOM500T PO; -RIFA550T PO
[2022-06-04] MEDS ORDERED: FAMOTIDINE 20MG VIAL IV ONE ×2 (17:00→17:10)
[2022-06-04] MEDS ORDERED: 0.9% NACL 250ML 250 ML IV ONE (17:00)
[2022-06-04] MEDS ORDERED: ZOSYN 3.375GM +NS 50ML IV SCH (17:00)
[2022-06-04] MEDS ORDERED: ONDANSETRON 4MG INJ IVP ONE (17:00)
[2022-06-04 17:01] LABS: BASOPHILS % (AUTO) 0.3 % (0.0-5.0); LYMPHOCYTES % (AUTO) 23.5 % (21.0-51.0); MEAN CORPUSCULAR HEMOGLOBIN 32.7 pg (27.0-33.0); MEAN CORPUSCULAR HGB CONC 34.4 g/dL (32.0-36.0); MEAN CORPUSCULAR VOLUME 95.1 fL (79-99); MONOCYTES % (AUTO) 13.1 % (3.0-13.0); NEUTROPHILS % (AUTO) 61.8 % (40.0-77.0); PLATELET COUNT (AUTO) 114 K/uL (130-400); RED BLOOD CELL COUNT(AUTO) 2.63 MIL/uL (4.50-6.20); WHITE BLOOD COUNT (AUTO) 6.2 K/uL (4.8-10.8)
[2022-06-04 17:02] LABS: APPEARANCE,URINE SL CLOUDY (CLEAR); BILIRUBIN,URINE NEGATIVE (NEGATIVE); COLOR,URINE DARK YELLOW (YELLOW); GLUCOSE, URINE (UA) NEGATIVE (NEGATIVE); KETONES,URINE 5 mg/dL (NEGATIVE); LEUKOCYTE ESTERASE ,URINE NEGATIVE (NEGATIVE); NITRATE,URINE NEGATIVE (NEGATIVE); OCCULT BLOOD,URINE LARGE (NEGATIVE); PH,URINE 5.5 (5.0-8.0); PROTEIN,URINE 30 mg/dL (NEGATIVE); UROBILINOGEN,URINE 0.2 mg/dL (0.2-1.0)
[2022-06-04 17:09] LABS: CREATININE 1.6 mg/dL (0.5-1.5); POTASSIUM 3.8 mmol/L (3.5-5.1)
[2022-06-04] MEDS ORDERED: ZOSYN 3.375GM+NS 50ML 50 ML ONE (17:09)
[2022-06-04] MEDS ORDERED: ONDANSETRON 4MG INJ ONE (17:09)
[2022-06-04 17:12] LABS: BACTERIA,URINE Few /HPF (None Seen); MUCUS,URINE Few LPF (None Seen); SQUAMOUS EPITHELIAL CELL,UR Few /HPF (0-2); YEAST,URINE BUDDING Moderate /HPF (None Seen)
[2022-06-04 17:23] LABS: ALBUMIN 2.1 g/dL (3.5-5.0); TOTAL PROTEIN, SERUM 6.1 g/dL (6.0-8.3)
[2022-06-04] MEDS ORDERED: FUROSEMIDE 40MG VIAL IV ONE (17:30)
[2022-06-04 17:38] LABS: B-TYPE NATRIURETIC PEPTIDE 32 pg/mL (0-100)
[2022-06-04] MEDS: LACTULOSE 20 GM/30 ML UDCUP PO SCH ×2 (18:00→23:32)
[2022-06-04 19:15] LABS: ABG BASE EXCESS -1.9 mmol/L (-2.0-3.0); ABG HCO3 20.8 mmol/L (21.0-28.0); ABG OXYGEN SATURATION 95.5 % (95.0-99.0); ABG PCO2 28 mmHg (35-48)
[2022-06-04] MEDS ORDERED: FUROSEMIDE 40MG VIAL IV SCH (20:00)
[2022-06-04] MEDS: SPIRONOLACTONE 25 MG TAB PO SCH (22:35)
[2022-06-04] MEDS: FUROSEMIDE 40MG VIAL IV SCH (22:35)
[2022-06-05] VITALS (7 sets, daily range): BP systolic 110–147; BP diastolic 75–85
[2022-06-05] MEDS: ZOSYN 3.375GM +NS 50ML IV SCH ×3 (05:20→21:42)
[2022-06-05] MEDS: LACTULOSE 20 GM/30 ML UDCUP PO SCH ×4 (05:20→23:23)
[2022-06-05 06:13] LABS: HEMATOCRIT 24.1 % (42-54); MEAN CORPUSCULAR HEMOGLOBIN 33.6 pg (27.0-33.0); MEAN CORPUSCULAR HGB CONC 34.9 g/dL (32.0-36.0); MEAN CORPUSCULAR VOLUME 96.4 fL (79-99); RED BLOOD CELL COUNT(AUTO) 2.5 MIL/uL (4.50-6.20); RED CELL DISTRIBUTION WIDTH 16.1 % (11.0-15.5); WHITE BLOOD COUNT (AUTO) 4.2 K/uL (4.8-10.8)
[2022-06-05 06:33] LABS: CREATININE 1.5 mg/dL (0.5-1.5); MAGNESIUM 1.7 mg/dL (1.80-2.40); PHOSPHORUS 3.9 mg/dL (2.5-4.9)
[2022-06-05 06:57] LABS: INR 1.24 (0.85-1.15); PROTHROMBIN TIME 13.4 SEC (9.6-11.6)
[2022-06-05] MEDS ORDERED: DEXTROSE 50%-WATER 50 ML DISP.SYRIN IV PRN (09:00)
[2022-06-05] MEDS ORDERED: LIDOCAINE HCL-MPF 1% 2ML VIAL IV PRN ×2 (09:00)
[2022-06-05] MEDS ORDERED: ONDANSETRON 4MG INJ IVP PRN (09:00)
[2022-06-05] MEDS ORDERED: POTASSIUM CHLORIDE 10% ELIXIR 20 MEQ/15 ML UDCUP PO PRN (09:00)
[2022-06-05] MEDS ORDERED: ACETAMINOPHEN 325 MG TAB PO PRN (09:00)
[2022-06-05] MEDS ORDERED: BISACODYL 10 MG SUPP.RECT RC SCH (09:00)
[2022-06-05] MEDS ORDERED: GLUCAGON 1MG KIT 1 MG ML IM PRN (09:00)
[2022-06-05] MEDS ORDERED: MAGNESIUM 2GM PREMIX 50ML 50 ML IV PRN (09:00)
[2022-06-05] MEDS ORDERED: ACETAMINOPHEN 650 MG SUPPOSITORY RC PRN (09:00)
[2022-06-05] MEDS ORDERED: POTASSIUM CHLORIDE 20MEQ/100ML 100 ML IV PRN ×2 (09:00)
[2022-06-05] MEDS ORDERED: BISACODYL 10 MG SUPP.RECT RC PRN (09:00)
[2022-06-05] MEDS: FUROSEMIDE 40MG VIAL IV SCH ×2 (09:16→19:42)
[2022-06-05] MEDS: SPIRONOLACTONE 25 MG TAB PO SCH ×2 (09:17→19:42)
[2022-06-05] MEDS: KCL 20 MEQ ERTAB PO PRN (09:26)
[2022-06-05] MEDS: PANTOPRAZOLE 40 MG/VIAL IVP SCH (19:42)
[2022-06-05] MEDS: RIFAXIMIN 550 MG TABLET PO SCH (19:42)
[2022-06-05 22:03] LABS: SPECIMENTYPE,BODY FLUID PLEURAL
[2022-06-05 22:04] LABS: APPEARANCE BODY FLUID CLEAR (CLEAR); BODY FLUID RBC 244 /cu. mm.; BODY FLUID WBC 7 /cu. mm.; COLOR,BODY FLUID YELLOW (LT YELLOW); TOTAL VOLUME,BODY FLUID 2500 mL
[2022-06-05 22:11] LABS: BF LYMPHOCYTE 34 %; BF MESOTHELIAL 1 %; BF MONOCYTE 6 %; BF OTHER CELLS 4
[2022-06-06 03:46] VITALS: BP 131/67
[2022-06-06 04:37] LABS: MEAN CORPUSCULAR HEMOGLOBIN 32.8 pg (27.0-33.0); MEAN CORPUSCULAR HGB CONC 34.4 g/dL (32.0-36.0); MEAN CORPUSCULAR VOLUME 95.4 fL (79-99); RED BLOOD CELL COUNT(AUTO) 2.62 MIL/uL (4.50-6.20); RED CELL DISTRIBUTION WIDTH 15.7 % (11.0-15.5); WHITE BLOOD COUNT (AUTO) 6.2 K/uL (4.8-10.8)
[2022-06-06 04:55] LABS: ALBUMIN 1.8 g/dL (3.5-5.0); CREATININE 1.7 mg/dL (0.5-1.5); POTASSIUM 3.7 mmol/L (3.5-5.1); TOTAL PROTEIN, SERUM 5.5 g/dL (6.0-8.3)
[2022-06-06] MEDS: ZOSYN 3.375GM +NS 50ML IV SCH ×3 (05:20→21:36)
[2022-06-06] MEDS: KCL 20 MEQ ERTAB PO PRN ×2 (05:21→06:37)
[2022-06-06] MEDS: LACTULOSE 20 GM/30 ML UDCUP PO SCH ×3 (05:21→17:55)
[2022-06-06 06:32] VITALS: BP 125/76
[2022-06-06] MEDS: FUROSEMIDE 40MG VIAL IV SCH ×2 (08:30→20:04)
[2022-06-06] MEDS: RIFAXIMIN 550 MG TABLET PO SCH ×2 (08:30→20:04)
[2022-06-06] MEDS: PANTOPRAZOLE 40 MG/VIAL IVP SCH ×2 (08:30→20:04)
[2022-06-06] MEDS: SPIRONOLACTONE 25 MG TAB PO SCH ×2 (08:30→20:04)
[2022-06-06 09:52] LABS: TOTAL PROTEIN, SERUM 5.5 g/dL (6.0-8.3)
[2022-06-06 11:47] VITALS: BP 127/78
[2022-06-06 15:55] VITALS: BP 118/81
[2022-06-06 20:20] VITALS: BP 118/67
[2022-06-07 00:27] VITALS: BP 117/79
[2022-06-07] MEDS: LACTULOSE 20 GM/30 ML UDCUP PO SCH ×2 (01:03→09:28)
[2022-06-07 04:47] VITALS: BP 118/75
[2022-06-07 04:51] LABS: BASOPHILS % (AUTO) 0.8 % (0.0-5.0); EOSINOPHILS % (AUTO) 2.9 % (0.0-8.0); LYMPHOCYTES % (AUTO) 23.1 % (21.0-51.0); MEAN CORPUSCULAR HEMOGLOBIN 33.1 pg (27.0-33.0); MEAN CORPUSCULAR HGB CONC 34.4 g/dL (32.0-36.0); MEAN CORPUSCULAR VOLUME 96.1 fL (79-99); MONOCYTES % (AUTO) 11.2 % (3.0-13.0); NEUTROPHILS % (AUTO) 61.6 % (40.0-77.0); PLATELET COUNT (AUTO) 84 K/uL (130-400); RED BLOOD CELL COUNT(AUTO) 2.81 MIL/uL (4.50-6.20); RED CELL DISTRIBUTION WIDTH 15.8 % (11.0-15.5); WHITE BLOOD COUNT (AUTO) 5.2 K/uL (4.8-10.8)
[2022-06-07] MEDS: ZOSYN 3.375GM +NS 50ML IV SCH (05:09)
[2022-06-07 05:20] LABS: ALBUMIN 1.8 g/dL (3.5-5.0); CREATININE 1.8 mg/dL (0.5-1.5); POTASSIUM 3.9 mmol/L (3.5-5.1); TOTAL PROTEIN, SERUM 5.7 g/dL (6.0-8.3)
[2022-06-07 08:00] VITALS: BP 113/78
[2022-06-07] MEDS: FUROSEMIDE 40MG VIAL IV SCH (08:29)
[2022-06-07] MEDS: SPIRONOLACTONE 25 MG TAB PO SCH (08:29)
[2022-06-07] MEDS: PANTOPRAZOLE 40 MG/VIAL IVP SCH (08:29)
[2022-06-07] MEDS: RIFAXIMIN 550 MG TABLET PO SCH (08:29)
[2022-06-07] MEDS ORDERED: SPIR25TA6 PO (09:33)
[2022-06-07] MEDS ORDERED: RIFA550T PO (09:33)
== END 2022-06-07 13:53 | disposition home or self-care (01) | DRG 189 ==
LOC: EDH 16:25 → EDHIP 16:26 → 4DH 22:30
PROVIDERS: ADMIT Internal Medicine; ATTEND Internal Medicine
PROC: 0W993ZZ Drainage of Right Pleural Cavity, Percutaneous Approach (ICD-10-PCS; principal; 2022-06-05)
DX: J96.01 Acute respiratory failure with hypoxia (principal); I21.A1 Myocardial infarction type 2; J90 Pleural effusion, not elsewhere classified; E46 Unspecified protein-calorie malnutrition; Z20.822 Contact with and (suspected) exposure to COVID-19; N17.9 Acute kidney failure, unspecified; R18.8 Other ascites; K74.60 Unspecified cirrhosis of liver; N18.30 Chronic kidney disease, stage 3 unspecified; D64.9 Anemia, unspecified; D69.6 Thrombocytopenia, unspecified; E86.9 Volume depletion, unspecified; Z91.14 Patient's other noncompliance with medication regimen; Z68.27 Body mass index [BMI] 27.0-27.9, adult
CPT/HCPCS: 32554; 36415; 36600; 71045; 74018; 80048; 80053; 81001; 82140; 82435; 82803; 82945; 82947; 82948; 83605; 83615; 83735; 83880; 83986; 84100; 84132; 84155; 84157; 84295; 84484; 85018; 85025; 85027; 85610; 87040; 87071; 87116; 87205; 87206; 87635; 87804; 89051; 93005; C9113; C9803; G0378; J1940; J2405; J2543; J3475; J3480; J3490

== ENCOUNTER 2022-08-30 14:31 | Observation (INO) | payer OTHER ==
[~2022-08-30] VITALS: Ht 154.9 cm; Wt 62.9 kg
[~2022-08-30 14:31] MED LIST changes: +RIFA550T PO; +SPIR25TA6 PO
[2022-08-30 16:04] LABS: BASOPHILS % (AUTO) 0.2 % (0.0-5.0); EOSINOPHILS % (AUTO) 1.5 % (0.0-8.0); LYMPHOCYTES % (AUTO) 16.4 % (21.0-51.0); MEAN CORPUSCULAR HGB CONC 34.7 g/dL (32.0-36.0); MEAN CORPUSCULAR VOLUME 95.2 fL (79-99); MONOCYTES % (AUTO) 14.9 % (3.0-13.0); NEUTROPHILS % (AUTO) 66.5 % (40.0-77.0); PLATELET COUNT (AUTO) 91 K/uL (130-400); RED BLOOD CELL COUNT(AUTO) 2.09 MIL/uL (4.50-6.20)
[2022-08-30 16:16] LABS: HEMATOCRIT 19.9 % (42-54)
[2022-08-30 16:22] LABS: ALBUMIN 1.5 g/dL (3.5-5.0); CREATININE 1.9 mg/dL (0.5-1.5); TOTAL PROTEIN, SERUM 5.7 g/dL (6.0-8.3)
[2022-08-30 16:24] LABS: POTASSIUM 2.9 mmol/L (3.5-5.1)
[2022-08-30] MEDS ORDERED: POTASSIUM BICARB/CIT AC 25 MEQ TABLET.EFF PO STA (16:27)
[2022-08-30] MEDS ORDERED: FAMOTIDINE 20MG VIAL IV SCH (21:00)
[2022-08-30] MEDS ORDERED: ONDANSETRON 4MG INJ IV PRN (21:00)
[2022-08-30] MEDS ORDERED: NITROGLYCERIN 0.4 MG SL TAB SL PRN (21:00)
[2022-08-30] MEDS: ZOSYN 3.375GM+NS 50ML 50 ML IV SCH (21:00)
[2022-08-30 21:26] LABS: % IRON SATURATION 80.4 % (30-44)
[2022-08-30 22:00] VITALS: BP 105/68
[2022-08-31] VITALS (11 sets, daily range): BP systolic 89–134; BP diastolic 61–74
[2022-08-31 03:11] LABS: BASOPHILS % (AUTO) 0.5 % (0.0-5.0); EOSINOPHILS % (AUTO) 2.1 % (0.0-8.0); HEMATOCRIT 21.9 % (42-54); LYMPHOCYTES % (AUTO) 20.3 % (21.0-51.0); MEAN CORPUSCULAR HEMOGLOBIN 32.2 pg (27.0-33.0); MEAN CORPUSCULAR HGB CONC 35.6 g/dL (32.0-36.0); MEAN CORPUSCULAR VOLUME 90.5 fL (79-99); MONOCYTES % (AUTO) 15.6 % (3.0-13.0); PLATELET COUNT (AUTO) 70 K/uL (130-400); RED BLOOD CELL COUNT(AUTO) 2.42 MIL/uL (4.50-6.20); RED CELL DISTRIBUTION WIDTH 17.3 % (11.0-15.5); WHITE BLOOD COUNT (AUTO) 6.2 K/uL (4.8-10.8)
[2022-08-31 03:24] LABS: ALBUMIN 1.2 g/dL (3.5-5.0); CREATININE 1.4 mg/dL (0.5-1.5); MAGNESIUM 1.4 mg/dL (1.80-2.40); POTASSIUM 3.3 mmol/L (3.5-5.1); TOTAL PROTEIN, SERUM 4.6 g/dL (6.0-8.3)
[2022-08-31 03:25] LABS: INR 1.4 (0.85-1.15)
[2022-08-31 03:26] LABS: PARTIAL THROMBOPLASTIN TIME 45.9 SEC (26.3-35.5)
[2022-08-31] MEDS: ZOSYN 3.375GM+NS 50ML 50 ML IV SCH (03:52)
[2022-08-31] MEDS ORDERED: MAGNESIUM 2GM PREMIX 50ML 50 ML IV ONE (05:30)
[2022-08-31] MEDS ORDERED: POTASSIUM CHLORIDE 20 MEQ/100 ML BAG IV SCH (05:30)
[2022-08-31] MEDS ORDERED: LACTULOSE 20 GM/30 ML UDCUP PO PRN (09:00)
[2022-08-31] MEDS ORDERED: ALBUMIN (HUMAN) 25% 200 ML IV SCH (10:30)
[2022-08-31] MEDS ORDERED: LIDOCAINE HCL MPF 1% 5ML VIAL ONE (12:29)
[2022-08-31] MEDS ORDERED: LIDOCAINE HCL-MPF 1% 2ML VIAL ONE (12:30)
[2022-08-31 12:48] LABS: APPEARANCE BODY FLUID CLEAR (CLEAR); COLOR,BODY FLUID YELLOW (LT YELLOW); SPECIMENTYPE,BODY FLUID ASCITES; TOTAL VOLUME,BODY FLUID 4800 mL
[2022-08-31 12:49] LABS: BODY FLUID RBC 32 /cu. mm.; BODY FLUID WBC 383 /cu. mm.
[2022-08-31 13:07] LABS: BF LYMPHOCYTE 18 %; BF MESOTHELIAL 19 %; BF MONOCYTE 3 %
[2022-08-31] MEDS ORDERED: SPIR50TA5 PO (16:22)
[2022-08-31] MEDS ORDERED: MIDO5TAB4 PO (16:22)
[2022-08-31] MEDS ORDERED: RIFA550T PO (16:22)
== END 2022-08-31 18:58 | disposition home or self-care (01) ==
LOC: EDH 14:31 → EDHIP 14:32 → INTOOBSV 14:32 → EDHIP 20:41 → UNDOADMIN 20:41 → 3CH 22:00
PROVIDERS: ADMIT Internal Medicine; ATTEND Internal Medicine
DX: D62 Acute posthemorrhagic anemia (principal); Z20.822 Contact with and (suspected) exposure to COVID-19; K74.69 Other cirrhosis of liver; R18.8 Other ascites; K76.6 Portal hypertension; D69.6 Thrombocytopenia, unspecified; E87.1 Hypo-osmolality and hyponatremia; E87.6 Hypokalemia; I12.9 Hypertensive chronic kidney disease with stage 1 through stage 4 chronic kidney disease, or unspecified chronic kidney disease; N18.30 Chronic kidney disease, stage 3 unspecified; D68.9 Coagulation defect, unspecified; K80.20 Calculus of gallbladder without cholecystitis without obstruction; K76.82 Hepatic encephalopathy; K31.89 Other diseases of stomach and duodenum; K44.9 Diaphragmatic hernia without obstruction or gangrene; M47.815 Spondylosis without myelopathy or radiculopathy, thoracolumbar region; D61.818 Other pancytopenia; E43 Unspecified severe protein-calorie malnutrition; G89.29 Other chronic pain; Z91.199 Patient's noncompliance with other medical treatment and regimen due to unspecified reason; Z79.899 Other long term (current) drug therapy; Z98.890 Other specified postprocedural states; Z68.26 Body mass index [BMI] 26.0-26.9, adult
CPT/HCPCS: 99285; 36430; 74176; 87635; 82270; 83540; 83550; 84484; 80053 ×2; 83880; 82728; 82140; 83690 ×2; 85025 ×2; 86850; 86900; 86901; 86923; 36415 ×2; 93005; 49083; 96365; 96367; 96366 ×2; 82150; 83735; 82330; 89051; 85610; 85730; 87040 ×2; 87205; 87071; P9016; P9046; G0378; J3475; J3480; J2543; J3490 ×2; C1729

== ENCOUNTER 2022-09-24 14:25 | Emergency (ER) | payer OTHER ==
[~2022-09-24] VITALS: Ht 152.4 cm; Wt 67.1 kg
[~2022-09-24 14:25] MED LIST changes: +MIDO5TAB4 PO; +SPIR50TA5 PO
[2022-09-24 15:11] LABS: BASOPHILS % (AUTO) 0.9 % (0.0-5.0); EOSINOPHILS % (AUTO) 2.3 % (0.0-8.0); LYMPHOCYTES % (AUTO) 22.8 % (21.0-51.0); MEAN CORPUSCULAR HEMOGLOBIN 32.3 pg (27.0-33.0); MEAN CORPUSCULAR VOLUME 95.1 fL (79-99); MONOCYTES % (AUTO) 14.3 % (3.0-13.0); NEUTROPHILS % (AUTO) 58.8 % (40.0-77.0); PLATELET COUNT (AUTO) 121 K/uL (130-400); RED BLOOD CELL COUNT(AUTO) 2.63 MIL/uL (4.50-6.20); RED CELL DISTRIBUTION WIDTH 19.8 % (11.0-15.5); WHITE BLOOD COUNT (AUTO) 5.8 K/uL (4.8-10.8)
[2022-09-24 15:19] LABS: CREATININE 1.1 mg/dL (0.5-1.5)
[2022-09-24 15:21] LABS: INR 1.22 (0.85-1.15); PROTHROMBIN TIME 13.1 SEC (9.6-11.6)
[2022-09-24 15:23] LABS: ALBUMIN 2.2 g/dL (3.5-5.0)
[2022-09-24 19:30] VITALS: BP 106/71
== END 2022-09-24 20:30 | disposition home or self-care (01) ==
LOC: EDH 14:25
DX: K74.60 Unspecified cirrhosis of liver (principal); R18.8 Other ascites; Z79.899 Other long term (current) drug therapy
CPT/HCPCS: 36415; 80053; 85025; 85610

== ENCOUNTER 2022-09-27 13:22 | Emergency (ER) | payer OTHER ==
[~2022-09-27] VITALS: Ht 152.4 cm; Wt 65.8 kg
[2022-09-27 14:02] LABS: BASOPHILS % (AUTO) 0.7 % (0.0-5.0); EOSINOPHILS % (AUTO) 3.5 % (0.0-8.0); HEMATOCRIT 25.7 % (42-54); LYMPHOCYTES % (AUTO) 21.4 % (21.0-51.0); MEAN CORPUSCULAR HEMOGLOBIN 32.7 pg (27.0-33.0); MEAN CORPUSCULAR HGB CONC 33.1 g/dL (32.0-36.0); MEAN CORPUSCULAR VOLUME 98.8 fL (79-99); MONOCYTES % (AUTO) 14.8 % (3.0-13.0); NEUTROPHILS % (AUTO) 59.2 % (40.0-77.0); PLATELET COUNT (AUTO) 108 K/uL (130-400); RED CELL DISTRIBUTION WIDTH 20.3 % (11.0-15.5); WHITE BLOOD COUNT (AUTO) 4.6 K/uL (4.8-10.8)
[2022-09-27 14:14] LABS: CREATININE 1.1 mg/dL (0.5-1.5); INR 1.15 (0.85-1.15); POTASSIUM 4.4 mmol/L (3.5-5.1); PROTHROMBIN TIME 12.4 SEC (9.6-11.6)
[2022-09-27 14:21] LABS: ALBUMIN 2.2 g/dL (3.5-5.0); TOTAL PROTEIN, SERUM 6.1 g/dL (6.0-8.3)
[2022-09-27] MEDS ORDERED: LIDOCAINE HCL 1% 20 ML VIAL ONE (14:55)
[2022-09-27] MEDS ORDERED: ALBUMIN (HUMAN) 25% 200 ML IV ONE (14:55)
[2022-09-27 16:14] VITALS: BP 98/56
[2022-09-27] MEDS ORDERED: CIPR-279 PO (16:24)
== END 2022-09-27 16:43 | disposition home or self-care (01) ==
LOC: EDH 13:22
DX: R18.8 Other ascites (principal); K74.60 Unspecified cirrhosis of liver; Z79.899 Other long term (current) drug therapy
CPT/HCPCS: 49083; 99285; 96365; 80053; 85025; 85610; 36415; P9046; C1729

== ENCOUNTER 2022-10-10 13:48 | Emergency (ER) | payer OTHER ==
[~2022-10-10] VITALS: Ht 162.6 cm; Wt 63.5 kg
[~2022-10-10 13:48] MED LIST changes: +CIPR-279 PO
[2022-10-10 14:26] VITALS: BP 104/61
[2022-10-10 14:27] LABS: BASOPHILS % (AUTO) 0.8 % (0.0-5.0); EOSINOPHILS % (AUTO) 4.2 % (0.0-8.0); HEMATOCRIT 23.9 % (42-54); LYMPHOCYTES % (AUTO) 21.6 % (21.0-51.0); MEAN CORPUSCULAR HEMOGLOBIN 33.5 pg (27.0-33.0); MEAN CORPUSCULAR HGB CONC 33.1 g/dL (32.0-36.0); MEAN CORPUSCULAR VOLUME 101.3 fL (79-99); MONOCYTES % (AUTO) 12.7 % (3.0-13.0); NEUTROPHILS % (AUTO) 60.5 % (40.0-77.0); PLATELET COUNT (AUTO) 119 K/uL (130-400); RED BLOOD CELL COUNT(AUTO) 2.36 MIL/uL (4.50-6.20); RED CELL DISTRIBUTION WIDTH 19.6 % (11.0-15.5)
[2022-10-10 14:37] LABS: CREATININE 1.2 mg/dL (0.5-1.5); POTASSIUM 3.6 mmol/L (3.5-5.1)
[2022-10-10 14:39] LABS: INR 1.26 (0.85-1.15); PROTHROMBIN TIME 13.6 SEC (9.6-11.6)
[2022-10-10 14:41] LABS: PARTIAL THROMBOPLASTIN TIME 30.4 SEC (26.3-35.5)
[2022-10-10 14:47] LABS: TOTAL PROTEIN, SERUM 5.5 g/dL (6.0-8.3)
[2022-10-10 15:04] LABS: B-TYPE NATRIURETIC PEPTIDE 147 pg/mL (0-100)
== END 2022-10-10 16:39 | disposition home or self-care (01) ==
LOC: EDH 13:48
DX: R18.8 Other ascites (principal); K74.60 Unspecified cirrhosis of liver; Z98.890 Other specified postprocedural states
CPT/HCPCS: 36415; 71045; 80053; 83880; 84484; 85025; 85610; 85730; 93005

== ENCOUNTER 2022-12-09 13:13 | Emergency (ER) | payer OTHER ==
[~2022-12-09] VITALS: Ht 162.6 cm; Wt 68.0 kg
[2022-12-09 14:18] LABS: EOSINOPHILS % (AUTO) 4.2 % (0.0-8.0); HEMATOCRIT 28.8 % (42-54); LYMPHOCYTES % (AUTO) 26.8 % (21.0-51.0); MEAN CORPUSCULAR HEMOGLOBIN 34.3 pg (27.0-33.0); MEAN CORPUSCULAR HGB CONC 34.4 g/dL (32.0-36.0); MEAN CORPUSCULAR VOLUME 99.7 fL (79-99); MONOCYTES % (AUTO) 18.6 % (3.0-13.0); NEUTROPHILS % (AUTO) 49.1 % (40.0-77.0); PLATELET COUNT (AUTO) 94 K/uL (130-400); RED BLOOD CELL COUNT(AUTO) 2.89 MIL/uL (4.50-6.20); RED CELL DISTRIBUTION WIDTH 15.3 % (11.0-15.5); WHITE BLOOD COUNT (AUTO) 3.8 K/uL (4.8-10.8)
[2022-12-09 14:26] LABS: CREATININE 1.4 mg/dL (0.5-1.5); POTASSIUM 4.6 mmol/L (3.5-5.1)
[2022-12-09 14:29] LABS: INR 1.21 (0.85-1.15)
[2022-12-09 14:31] LABS: ALBUMIN 2.1 g/dL (3.5-5.0); TOTAL PROTEIN, SERUM 5.8 g/dL (6.0-8.3)
[2022-12-09 16:46] VITALS: BP 119/72
== END 2022-12-09 16:52 | disposition home or self-care (01) ==
LOC: EDH 13:13
DX: R14.0 Abdominal distension (gaseous) (principal); K74.60 Unspecified cirrhosis of liver; J18.9 Pneumonia, unspecified organism; Z79.899 Other long term (current) drug therapy; Z98.890 Other specified postprocedural states
CPT/HCPCS: 36415; 80053; 85025; 85610

== ENCOUNTER 2022-12-20 13:44 | Emergency (ER) | payer OTHER ==
[~2022-12-20] VITALS: Ht 162.6 cm; Wt 68.0 kg
[2022-12-20 14:38] LABS: BASOPHILS % (AUTO) 0.7 % (0.0-5.0); EOSINOPHILS % (AUTO) 4.2 % (0.0-8.0); HEMATOCRIT 27.5 % (42-54); LYMPHOCYTES % (AUTO) 25.1 % (21.0-51.0); MEAN CORPUSCULAR HEMOGLOBIN 34.6 pg (27.0-33.0); MEAN CORPUSCULAR HGB CONC 34.2 g/dL (32.0-36.0); MEAN CORPUSCULAR VOLUME 101.1 fL (79-99); MONOCYTES % (AUTO) 16.9 % (3.0-13.0); NEUTROPHILS % (AUTO) 52.8 % (40.0-77.0); PLATELET COUNT (AUTO) 79 K/uL (130-400); RED BLOOD CELL COUNT(AUTO) 2.72 MIL/uL (4.50-6.20); RED CELL DISTRIBUTION WIDTH 15.9 % (11.0-15.5); WHITE BLOOD COUNT (AUTO) 3.1 K/uL (4.8-10.8)
[2022-12-20 14:47] LABS: INR 1.25 (0.85-1.15); PROTHROMBIN TIME 13.5 SEC (9.6-11.6)
[2022-12-20 15:38] LABS: CREATININE 1.1 mg/dL (0.5-1.5); POTASSIUM 3.9 mmol/L (3.5-5.1)
[2022-12-20 15:42] LABS: ALBUMIN 1.9 g/dL (3.5-5.0); TOTAL PROTEIN, SERUM 5.5 g/dL (6.0-8.3)
[2022-12-20 16:00] VITALS: BP 112/74
[2022-12-20 16:07] LABS: PLATELET MORPHOLOGY DECREASED
[2022-12-21] MEDS ORDERED: LACT10SO9 PO (10:29)
== END 2022-12-20 17:27 | disposition left against medical advice (07) ==
LOC: EDH 13:44
DX: R18.8 Other ascites (principal); K74.60 Unspecified cirrhosis of liver; Z79.899 Other long term (current) drug therapy; Z98.890 Other specified postprocedural states
CPT/HCPCS: 36415; 80053; 85025; 85610

== ENCOUNTER 2022-12-21 07:17 | Emergency (ER) | payer OTHER ==
[~2022-12-21] VITALS: Ht 162.6 cm; Wt 77.6 kg
[2022-12-21 09:42] VITALS: BP 110/65
[2022-12-21] MEDS ORDERED: LACT10SO9 PO (10:29)
== END 2022-12-21 10:33 | disposition home or self-care (01) ==
LOC: EDH 07:17
DX: K74.60 Unspecified cirrhosis of liver (principal); R18.8 Other ascites; Z79.899 Other long term (current) drug therapy; Z98.890 Other specified postprocedural states
CPT/HCPCS: 76705

== ENCOUNTER 2022-12-27 09:47 | Emergency (ER) | payer OTHER ==
[~2022-12-27] VITALS: Ht 160 cm; Wt 77.1 kg
[2022-12-27 10:23] LABS: BASOPHILS % (AUTO) 0.9 % (0.0-5.0); EOSINOPHILS % (AUTO) 3.3 % (0.0-8.0); HEMATOCRIT 33.4 % (42-54); LYMPHOCYTES % (AUTO) 31.1 % (21.0-51.0); MEAN CORPUSCULAR HEMOGLOBIN 33.9 pg (27.0-33.0); MEAN CORPUSCULAR HGB CONC 33.5 g/dL (32.0-36.0); MEAN CORPUSCULAR VOLUME 101.2 fL (79-99); MONOCYTES % (AUTO) 14.3 % (3.0-13.0); NEUTROPHILS % (AUTO) 50.2 % (40.0-77.0); PLATELET COUNT (AUTO) 102 K/uL (130-400); WHITE BLOOD COUNT (AUTO) 4.3 K/uL (4.8-10.8)
[2022-12-27 10:34] LABS: INR 1.23 (0.85-1.15); PROTHROMBIN TIME 13.3 SEC (9.6-11.6)
[2022-12-27 10:36] LABS: ALBUMIN 2.1 g/dL (3.5-5.0); CREATININE 1.1 mg/dL (0.5-1.5)
[2022-12-27 12:29] VITALS: BP 119/71
== END 2022-12-27 12:28 | disposition home or self-care (01) ==
LOC: EDH 09:47
DX: K74.60 Unspecified cirrhosis of liver (principal); R10.9 Unspecified abdominal pain; Z79.2 Long term (current) use of antibiotics; Z79.899 Other long term (current) drug therapy; Z20.822 Contact with and (suspected) exposure to COVID-19
CPT/HCPCS: 99285; 76705; 71045; 87635; 80053; 85025; 85610; 36415; C9803

== ENCOUNTER 2023-01-03 18:17 | Inpatient (IN) | payer OTHER ==
[~2023-01-03] VITALS: Ht 165.1 cm; Wt 70.4 kg
[2023-01-03 18:51] LABS: BASOPHILS % (AUTO) 0.5 % (0.0-5.0); EOSINOPHILS % (AUTO) 1.5 % (0.0-8.0); HEMATOCRIT 30.9 % (42-54); LYMPHOCYTES % (AUTO) 18.6 % (21.0-51.0); MEAN CORPUSCULAR HEMOGLOBIN 34.3 pg (27.0-33.0); MEAN CORPUSCULAR HGB CONC 34.3 g/dL (32.0-36.0); MONOCYTES % (AUTO) 12.4 % (3.0-13.0); NEUTROPHILS % (AUTO) 66.7 % (40.0-77.0); PLATELET COUNT (AUTO) 91 K/uL (130-400); RED BLOOD CELL COUNT(AUTO) 3.09 MIL/uL (4.50-6.20); RED CELL DISTRIBUTION WIDTH 15.1 % (11.0-15.5); WHITE BLOOD COUNT (AUTO) 3.9 K/uL (4.8-10.8)
[2023-01-03 18:58] LABS: CREATININE 1.2 mg/dL (0.5-1.5); POTASSIUM 4.5 mmol/L (3.5-5.1)
[2023-01-03 19:03] LABS: ALBUMIN 2.1 g/dL (3.5-5.0); TOTAL PROTEIN, SERUM 6.2 g/dL (6.0-8.3)
[2023-01-03 20:02] LABS: CREATINE KINASE, TOTAL 92 U/L (21-232)
[2023-01-03 20:03] LABS: ACETAMINOPHEN < 1 mcg/mL (10-29); SALICYLATE < 2.8 mg/dL (2.8-20.0)
[2023-01-03] MEDS ORDERED: LACTULOSE 20 GM/30 ML UDCUP PO SCH ×2 (20:30→21:00)
[2023-01-03] MEDS ORDERED: HYDROCODONE/ACETAMINOPHEN 5/325 MG TAB PO PRN (20:30)
[2023-01-03] MEDS ORDERED: ONDANSETRON 4MG INJ IV PRN (20:30)
[2023-01-03] MEDS ORDERED: HYDROMORPHONE 0.5 MG SYG (0.5MG/0.5ML) IV PRN (20:30)
[2023-01-03] MEDS ORDERED: LIDOCAINE HCL-MPF 1% 2ML VIAL IV PRN (21:30)
[2023-01-03] MEDS ORDERED: POTASSIUM CHLORIDE 10MEQ/100ML 100 ML IV PRN (21:30)
[2023-01-03] MEDS ORDERED: PHARMACY COMMUNICATION MISC SCH (21:30)
[2023-01-03] MEDS ORDERED: MAGNESIUM 2GM PREMIX 50ML 50 ML IV PRN (21:30)
[2023-01-03] MEDS ORDERED: POTASSIUM CHLORIDE 10% ELIXIR 20 MEQ/15 ML UDCUP PO PRN (21:30)
[2023-01-03 23:53] VITALS: BP 127/77
[2023-01-03] MEDS ORDERED: MULT1CAP17 PO (23:53)
[2023-01-03] MEDS ORDERED: FERS325 PO (23:53)
[2023-01-04] MEDS: LACTULOSE 20 GM/30 ML UDCUP PO SCH ×5 (00:07→23:56)
[2023-01-04 01:38] LABS: APPEARANCE,URINE CLOUDY (CLEAR); BILIRUBIN,URINE NEGATIVE (NEGATIVE); COLOR,URINE LIGHT-YELLOW (YELLOW); GLUCOSE, URINE (UA) NEGATIVE (NEGATIVE); KETONES,URINE NEGATIVE (NEGATIVE); LEUKOCYTE ESTERASE ,URINE 250 Leu/uL (NEGATIVE); NITRATE,URINE NEGATIVE (NEGATIVE); OCCULT BLOOD,URINE LARGE (NEGATIVE); PROTEIN,URINE NEGATIVE (NEGATIVE); UROBILINOGEN,URINE 0.2 mg/dL (0.2-1.0)
[2023-01-04 01:43] LABS: BACTERIA,URINE RARE /HPF (None Seen); SQUAMOUS EPITHELIAL CELL,UR RARE /HPF (0-2)
[2023-01-04 01:45] LABS: AMPHET/METH SCREEN,URINE NEGATIVE (NEGATIVE); BARBITURATE SCREEN, URINE NEGATIVE (NEGATIVE); BENZODIAZEPINES SCREEN,URINE NEGATIVE (NEGATIVE); CANNABINOID SCREEN,URINE NEGATIVE (NEGATIVE); COCAINE SCREEN,URINE NEGATIVE (NEGATIVE); OPIATE SCREEN,URINE NEGATIVE (NEGATIVE); PHENCYCLIDINE SCREEN,URINE NEGATIVE (NEGATIVE)
[2023-01-04 04:34] VITALS: BP 121/73
[2023-01-04 05:58] LABS: BASOPHILS % (AUTO) 0.9 % (0.0-5.0); EOSINOPHILS % (AUTO) 3.5 % (0.0-8.0); HEMATOCRIT 30.3 % (42-54); LYMPHOCYTES % (AUTO) 32.2 % (21.0-51.0); MEAN CORPUSCULAR HEMOGLOBIN 33.8 pg (27.0-33.0); MEAN CORPUSCULAR HGB CONC 34.3 g/dL (32.0-36.0); MEAN CORPUSCULAR VOLUME 98.4 fL (79-99); MONOCYTES % (AUTO) 15.8 % (3.0-13.0); NEUTROPHILS % (AUTO) 47.3 % (40.0-77.0); PLATELET COUNT (AUTO) 92 K/uL (130-400); RED BLOOD CELL COUNT(AUTO) 3.08 MIL/uL (4.50-6.20); RED CELL DISTRIBUTION WIDTH 14.8 % (11.0-15.5); WHITE BLOOD COUNT (AUTO) 3.4 K/uL (4.8-10.8)
[2023-01-04 06:06] LABS: INR 1.23 (0.85-1.15); PROTHROMBIN TIME 13.2 SEC (9.6-11.6)
[2023-01-04 06:07] LABS: PARTIAL THROMBOPLASTIN TIME 35.9 SEC (26.3-35.5)
[2023-01-04 06:10] LABS: MAGNESIUM 2.3 mg/dL (1.80-2.40)
[2023-01-04] MEDS: FAMOTIDINE 20MG TAB PO SCH (07:58)
[2023-01-04 08:00] VITALS: BP 109/70
[2023-01-04 12:00] VITALS: BP 129/80
[2023-01-04 16:00] VITALS: BP 136/90
[2023-01-04] MEDS ORDERED: CEFTRIAXONE 2GM VIAL IVP SCH (19:30)
[2023-01-04] MEDS ORDERED: RIFAXIMIN 550 MG TABLET PO SCH (19:30)
[2023-01-04 20:22] VITALS: BP 125/78
[2023-01-04] MEDS: RIFAXIMIN 550 MG TABLET PO SCH (21:00)
[2023-01-04 23:15] VITALS: BP 127/84
[2023-01-05 03:51] VITALS: BP 132/79
[2023-01-05] MEDS: LACTULOSE 20 GM/30 ML UDCUP PO SCH ×3 (06:02→17:55)
[2023-01-05 06:11] LABS: BASOPHILS % (AUTO) 0.8 % (0.0-5.0); EOSINOPHILS % (AUTO) 1.6 % (0.0-8.0); HEMATOCRIT 31.1 % (42-54); LYMPHOCYTES % (AUTO) 13.6 % (21.0-51.0); MEAN CORPUSCULAR HEMOGLOBIN 34.1 pg (27.0-33.0); MEAN CORPUSCULAR HGB CONC 34.7 g/dL (32.0-36.0); MEAN CORPUSCULAR VOLUME 98.1 fL (79-99); NEUTROPHILS % (AUTO) 67.7 % (40.0-77.0); PLATELET COUNT (AUTO) 79 K/uL (130-400); RED BLOOD CELL COUNT(AUTO) 3.17 MIL/uL (4.50-6.20); RED CELL DISTRIBUTION WIDTH 14.5 % (11.0-15.5); WHITE BLOOD COUNT (AUTO) 3.8 K/uL (4.8-10.8)
[2023-01-05 06:20] LABS: CREATININE 1.1 mg/dL (0.5-1.5); POTASSIUM 4.1 mmol/L (3.5-5.1)
[2023-01-05 07:30] VITALS: BP 124/61
[2023-01-05] MEDS: RIFAXIMIN 550 MG TABLET PO SCH ×2 (08:16→22:03)
[2023-01-05] MEDS: FAMOTIDINE 20MG TAB PO SCH (08:16)
[2023-01-05 11:30] VITALS: BP 117/75
[2023-01-05] MEDS: ZOSYN 3.375GM +NS 50ML IVPB SCH ×2 (13:05→22:02)
[2023-01-05] MEDS ORDERED: 0.9%NACL 50ML IV SCH (13:30)
[2023-01-05 15:30] VITALS: BP 114/74
[2023-01-05 19:48] VITALS: BP 129/77
[2023-01-05 23:34] VITALS: BP 133/83
[2023-01-06] MEDS: LACTULOSE 20 GM/30 ML UDCUP PO SCH ×4 (00:08→17:21)
[2023-01-06 03:25] VITALS: BP 124/76
[2023-01-06] MEDS: ZOSYN 3.375GM +NS 50ML IVPB SCH ×3 (05:27→22:45)
[2023-01-06 07:30] VITALS: BP 126/66
[2023-01-06] MEDS: FAMOTIDINE 20MG TAB PO SCH (08:21)
[2023-01-06] MEDS: RIFAXIMIN 550 MG TABLET PO SCH ×2 (08:22→22:45)
[2023-01-06] MEDS: FUROSEMIDE 20 MG TABLET PO SCH (08:24)
[2023-01-06 11:30] VITALS: BP 124/76
[2023-01-06 15:30] VITALS: BP 118/74
[2023-01-06 19:21] VITALS: BP 111/77
[2023-01-06 23:35] VITALS: BP 119/75
[2023-01-07] MEDS: LACTULOSE 20 GM/30 ML UDCUP PO SCH ×5 (00:26→23:19)
[2023-01-07 03:55] VITALS: BP 117/76
[2023-01-07 05:39] LABS: HEMATOCRIT 30.9 % (42-54); MEAN CORPUSCULAR HEMOGLOBIN 33.8 pg (27.0-33.0); MEAN CORPUSCULAR VOLUME 96.6 fL (79-99); RED BLOOD CELL COUNT(AUTO) 3.2 MIL/uL (4.50-6.20); RED CELL DISTRIBUTION WIDTH 14.6 % (11.0-15.5); WHITE BLOOD COUNT (AUTO) 4.8 K/uL (4.8-10.8)
[2023-01-07 06:03] LABS: CREATININE 1.5 mg/dL (0.5-1.5); MAGNESIUM 1.9 mg/dL (1.80-2.40); PHOSPHORUS 4.4 mg/dL (2.5-4.9); POTASSIUM 3.9 mmol/L (3.5-5.1)
[2023-01-07] MEDS: ZOSYN 3.375GM +NS 50ML IVPB SCH (06:17)
[2023-01-07] MEDS: RIFAXIMIN 550 MG TABLET PO SCH ×2 (07:38→20:09)
[2023-01-07] MEDS: FAMOTIDINE 20MG TAB PO SCH (07:38)
[2023-01-07] MEDS: FUROSEMIDE 20 MG TABLET PO SCH (07:39)
[2023-01-07 08:00] VITALS: BP 113/74
[2023-01-07 12:00] VITALS: BP 104/72
[2023-01-07] MEDS ORDERED: FURO20TA6 PO (12:06)
[2023-01-07] MEDS ORDERED: LACT10SO9 PO (12:06)
[2023-01-07] MEDS ORDERED: SPIR25TA6 PO (12:06)
[2023-01-07] MEDS ORDERED: RIFA550T PO (12:06)
[2023-01-07] MEDS ORDERED: SPIRONOLACTONE 25 MG TAB PO ONE (13:00)
[2023-01-07] MEDS ORDERED: RENAL DOSE IV SCH (13:00)
[2023-01-07] MEDS: SPIRONOLACTONE 25 MG TAB PO SCH (13:08)
[2023-01-07] MEDS: MEROPENEM 500 MG VIAL IVP SCH ×2 (13:08→23:25)
[2023-01-07 16:00] VITALS: BP 117/84
[2023-01-07 19:59] VITALS: BP 124/74
[2023-01-07 23:33] VITALS: BP 113/69
[2023-01-08 04:12] VITALS: BP 119/77
[2023-01-08 05:55] LABS: BASOPHILS % (AUTO) 0.6 % (0.0-5.0); EOSINOPHILS % (AUTO) 5.9 % (0.0-8.0); HEMATOCRIT 29.5 % (42-54); LYMPHOCYTES % (AUTO) 29.1 % (21.0-51.0); MEAN CORPUSCULAR HEMOGLOBIN 33.6 pg (27.0-33.0); MEAN CORPUSCULAR HGB CONC 34.6 g/dL (32.0-36.0); MONOCYTES % (AUTO) 14.5 % (3.0-13.0); NEUTROPHILS % (AUTO) 49.5 % (40.0-77.0); PLATELET COUNT (AUTO) 89 K/uL (130-400); RED BLOOD CELL COUNT(AUTO) 3.04 MIL/uL (4.50-6.20); RED CELL DISTRIBUTION WIDTH 14.7 % (11.0-15.5); WHITE BLOOD COUNT (AUTO) 4.8 K/uL (4.8-10.8)
[2023-01-08] MEDS: LACTULOSE 20 GM/30 ML UDCUP PO SCH ×4 (06:07→23:06)
[2023-01-08 06:20] LABS: CREATININE 1.3 mg/dL (0.5-1.5); POTASSIUM 3.7 mmol/L (3.5-5.1); TOTAL PROTEIN, SERUM 5.9 g/dL (6.0-8.3)
[2023-01-08 07:54] VITALS: BP 110/72
[2023-01-08] MEDS: RIFAXIMIN 550 MG TABLET PO SCH ×2 (09:03→23:06)
[2023-01-08] MEDS: FAMOTIDINE 20MG TAB PO SCH (09:03)
[2023-01-08] MEDS: FUROSEMIDE 20 MG TABLET PO SCH (09:03)
[2023-01-08] MEDS: SPIRONOLACTONE 25 MG TAB PO SCH (09:03)
[2023-01-08 11:36] VITALS: BP 125/83
[2023-01-08] MEDS: MEROPENEM 500 MG VIAL IVP SCH (12:32)
[2023-01-08 16:00] VITALS: BP 115/72
[2023-01-08 20:15] VITALS: BP 113/67
[2023-01-08 23:32] VITALS: BP 116/65
[2023-01-09] MEDS: MEROPENEM 500 MG VIAL IVP SCH ×2 (00:41→12:25)
[2023-01-09] MEDS ORDERED: HYDROCODONE/ACETAMINOPHEN 5/325 MG TAB PO PRN (01:00)
[2023-01-09 04:11] VITALS: BP 115/69
[2023-01-09] MEDS: LACTULOSE 20 GM/30 ML UDCUP PO SCH ×3 (06:14→17:40)
[2023-01-09 08:00] VITALS: BP 119/76
[2023-01-09] MEDS: FUROSEMIDE 20 MG TABLET PO SCH (10:13)
[2023-01-09] MEDS: SPIRONOLACTONE 25 MG TAB PO SCH (10:13)
[2023-01-09] MEDS: RIFAXIMIN 550 MG TABLET PO SCH ×2 (10:14→22:02)
[2023-01-09] MEDS: FAMOTIDINE 20MG TAB PO SCH (10:14)
[2023-01-09 11:00] VITALS: BP 107/71
[2023-01-09 16:00] VITALS: BP 105/67
[2023-01-09 20:38] VITALS: BP 109/72
[2023-01-09 23:25] VITALS: BP 98/59
[2023-01-10] MEDS: MEROPENEM 500 MG VIAL IVP SCH ×3 (00:11→23:36)
[2023-01-10] MEDS: LACTULOSE 20 GM/30 ML UDCUP PO SCH ×5 (00:11→23:35)
[2023-01-10 03:51] VITALS: BP 103/64
[2023-01-10 08:00] VITALS: BP 115/80
[2023-01-10] MEDS: FAMOTIDINE 20MG TAB PO SCH (08:45)
[2023-01-10] MEDS: SPIRONOLACTONE 25 MG TAB PO SCH (08:46)
[2023-01-10] MEDS: FUROSEMIDE 20 MG TABLET PO SCH (08:46)
[2023-01-10] MEDS: RIFAXIMIN 550 MG TABLET PO SCH ×2 (08:57→19:56)
[2023-01-10] MEDS: KCL 20 MEQ ERTAB PO PRN ×2 (08:58→15:09)
[2023-01-10 09:30] LABS: HEMATOCRIT 27.7 % (42-54); MEAN CORPUSCULAR HEMOGLOBIN 34.4 pg (27.0-33.0); MEAN CORPUSCULAR HGB CONC 35.4 g/dL (32.0-36.0); MEAN CORPUSCULAR VOLUME 97.2 fL (79-99); RED BLOOD CELL COUNT(AUTO) 2.85 MIL/uL (4.50-6.20); RED CELL DISTRIBUTION WIDTH 15.3 % (11.0-15.5)
[2023-01-10 09:39] LABS: CREATININE 1.1 mg/dL (0.5-1.5); POTASSIUM 3.8 mmol/L (3.5-5.1)
[2023-01-10 09:44] LABS: ALBUMIN 1.8 g/dL (3.5-5.0); TOTAL PROTEIN, SERUM 5.5 g/dL (6.0-8.3)
[2023-01-10 11:25] VITALS: BP 112/67
[2023-01-10 15:27] VITALS: BP 100/63
[2023-01-10 20:05] VITALS: BP 98/66
[2023-01-10 23:41] VITALS: BP 100/68
[2023-01-11 04:17] VITALS: BP 103/67
[2023-01-11] MEDS: LACTULOSE 20 GM/30 ML UDCUP PO SCH ×4 (04:59→23:55)
[2023-01-11 07:54] VITALS: BP 108/68
[2023-01-11] MEDS: RIFAXIMIN 550 MG TABLET PO SCH ×2 (08:42→20:06)
[2023-01-11] MEDS: SPIRONOLACTONE 25 MG TAB PO SCH (08:43)
[2023-01-11] MEDS: FAMOTIDINE 20MG TAB PO SCH (08:43)
[2023-01-11] MEDS: FUROSEMIDE 20 MG TABLET PO SCH (08:43)
[2023-01-11] MEDS: MEROPENEM 500 MG VIAL IVP SCH ×2 (11:53→23:56)
[2023-01-11 12:00] VITALS: BP 102/68
[2023-01-11 15:58] VITALS: BP 93/57
[2023-01-11 19:00] VITALS: BP 100/61
[2023-01-12] VITALS: BP 100/63
[2023-01-12 04:00] VITALS: BP 99/60
[2023-01-12] MEDS: LACTULOSE 20 GM/30 ML UDCUP PO SCH ×3 (05:22→18:34)
[2023-01-12 06:30] LABS: BASOPHILS % (AUTO) 0.9 % (0.0-5.0); EOSINOPHILS % (AUTO) 4.2 % (0.0-8.0); HEMATOCRIT 27.6 % (42-54); LYMPHOCYTES % (AUTO) 35.4 % (21.0-51.0); MEAN CORPUSCULAR HEMOGLOBIN 34.4 pg (27.0-33.0); MEAN CORPUSCULAR HGB CONC 35.1 g/dL (32.0-36.0); MEAN CORPUSCULAR VOLUME 97.9 fL (79-99); MONOCYTES % (AUTO) 13.8 % (3.0-13.0); NEUTROPHILS % (AUTO) 45.5 % (40.0-77.0); PLATELET COUNT (AUTO) 88 K/uL (130-400); RED BLOOD CELL COUNT(AUTO) 2.82 MIL/uL (4.50-6.20); RED CELL DISTRIBUTION WIDTH 15.4 % (11.0-15.5); WHITE BLOOD COUNT (AUTO) 4.3 K/uL (4.8-10.8)
[2023-01-12 06:53] LABS: ALBUMIN 1.8 g/dL (3.5-5.0); CREATININE 1.1 mg/dL (0.5-1.5); MAGNESIUM 1.8 mg/dL (1.80-2.40); PHOSPHORUS 3.8 mg/dL (2.5-4.9); TOTAL PROTEIN, SERUM 5.5 g/dL (6.0-8.3)
[2023-01-12 08:00] VITALS: BP 103/63
[2023-01-12] MEDS: RIFAXIMIN 550 MG TABLET PO SCH ×2 (09:16→20:50)
[2023-01-12] MEDS: FUROSEMIDE 20 MG TABLET PO SCH (09:17)
[2023-01-12] MEDS: SPIRONOLACTONE 25 MG TAB PO SCH (09:17)
[2023-01-12] MEDS: FAMOTIDINE 20MG TAB PO SCH (09:17)
[2023-01-12 12:00] VITALS: BP 96/66
[2023-01-12] MEDS: MEROPENEM 500 MG VIAL IVP SCH (12:44)
[2023-01-12 16:00] VITALS: BP 109/66
[2023-01-12 19:00] VITALS: BP 98/64
[2023-01-13] VITALS: BP 100/65
[2023-01-13] MEDS: LACTULOSE 20 GM/30 ML UDCUP PO SCH ×3 (00:05→12:10)
[2023-01-13] MEDS: MEROPENEM 500 MG VIAL IVP SCH (00:55)
[2023-01-13 04:00] VITALS: BP 107/67
[2023-01-13 05:44] LABS: BASOPHILS % (AUTO) 1.3 % (0.0-5.0); EOSINOPHILS % (AUTO) 4.5 % (0.0-8.0); HEMATOCRIT 27.8 % (42-54); LYMPHOCYTES % (AUTO) 34.8 % (21.0-51.0); MEAN CORPUSCULAR HEMOGLOBIN 34.2 pg (27.0-33.0); MEAN CORPUSCULAR HGB CONC 34.2 g/dL (32.0-36.0); NEUTROPHILS % (AUTO) 45.4 % (40.0-77.0); PLATELET COUNT (AUTO) 84 K/uL (130-400); RED BLOOD CELL COUNT(AUTO) 2.78 MIL/uL (4.50-6.20); RED CELL DISTRIBUTION WIDTH 15.8 % (11.0-15.5)
[2023-01-13 06:04] LABS: ALBUMIN 1.8 g/dL (3.5-5.0); CREATININE 1.2 mg/dL (0.5-1.5); POTASSIUM 3.8 mmol/L (3.5-5.1); TOTAL PROTEIN, SERUM 5.3 g/dL (6.0-8.3)
[2023-01-13 07:30] VITALS: BP 103/62
[2023-01-13] MEDS: SPIRONOLACTONE 25 MG TAB PO SCH (09:17)
[2023-01-13] MEDS: FUROSEMIDE 20 MG TABLET PO SCH (09:18)
[2023-01-13] MEDS: RIFAXIMIN 550 MG TABLET PO SCH (09:18)
[2023-01-13] MEDS: FAMOTIDINE 20MG TAB PO SCH (09:18)
[2023-01-13 11:00] VITALS: BP 99/67
== END 2023-01-13 13:20 | disposition home or self-care (01) | DRG 442 ==
LOC: EDH 18:17 → EDHIP 18:18 → 3AH 21:22
PROVIDERS: ADMIT Internal Medicine; ATTEND Internal Medicine
DX: K76.82 Hepatic encephalopathy (principal); D61.818 Other pancytopenia; D68.4 Acquired coagulation factor deficiency; N17.9 Acute kidney failure, unspecified; N39.0 Urinary tract infection, site not specified; Z16.12 Extended spectrum beta lactamase (ESBL) resistance; N18.9 Chronic kidney disease, unspecified; K70.31 Alcoholic cirrhosis of liver with ascites; B96.20 Unspecified Escherichia coli [E. coli] as the cause of diseases classified elsewhere; Z91.199 Patient's noncompliance with other medical treatment and regimen due to unspecified reason
CPT/HCPCS: 36415; 70450; 80048; 80053; 80305; 81001; 82140; 82550; 83735; 84100; 84484; 85025; 85027; 85610; 85730; 87077; 87088; 87186; 93005; G0378; G0481; J0696; J2185; J2543; J3475

== ENCOUNTER 2023-11-07 14:40 | Emergency (ER) | payer OTHER ==
[~2023-11-07] VITALS: Ht 162.6 cm; Wt 89.4 kg
[~2023-11-07 14:40] MED LIST changes: -CIPR-279 PO; +FERS325 PO; -FOLI0.8T2 PO; +FURO20TA6 PO; -MIDO5TAB4 PO; +MULT1CAP17 PO; -Midodrine Hcl PO; -NEOM500T PO; -PANT40TA54 PO; -SPIR50TA5 PO
[2023-11-07] MEDS ORDERED: FUROSEMIDE 40MG VIAL IV ONE (15:30)
[2023-11-07 15:36] LABS: BASOPHILS # (AUTO) 0.02 K/uL (0.00-0.20); BASOPHILS % (AUTO) 0.4 % (0.0-5.0); EOSINOPHILS # (AUTO) 0.13 K/uL (0.00-0.70); EOSINOPHILS % (AUTO) 2.8 % (0.0-8.0); HEMATOCRIT 33.7 % (42-54); IMMATURE GRANULOCYTE ABSOLUTE 0.01 K/uL (0-1); LYMPHOCYTES # (AUTO) 1.2 K/uL (1.0-4.8); LYMPHOCYTES % (AUTO) 26.2 % (21.0-51.0); MEAN CORPUSCULAR HEMOGLOBIN 35.5 pg (27.0-33.0); MEAN CORPUSCULAR VOLUME 101.5 fL (79-99); MONOCYTES # (AUTO) 0.6 K/uL (0.1-1.0); MONOCYTES % (AUTO) 11.9 % (3.0-13.0); NEUTROPHILS # (AUTO) 2.7 K/uL (1.8-7.7); NEUTROPHILS % (AUTO) 58.5 % (40.0-77.0); PLATELET COUNT (AUTO) 93 K/uL (130-400); RED BLOOD CELL COUNT(AUTO) 3.32 MIL/uL (4.50-6.20); RED CELL DISTRIBUTION WIDTH 14.9 % (11.0-15.5); WHITE BLOOD COUNT (AUTO) 4.6 K/uL (4.8-10.8)
[2023-11-07 15:47] LABS: CREATININE 1.7 mg/dL (0.5-1.5); POTASSIUM 4.4 mmol/L (3.5-5.1)
[2023-11-07 15:51] LABS: ALBUMIN 1.8 g/dL (3.5-5.0); BILIRUBIN,TOTAL 2.4 mg/dL (0.2-1.0); TOTAL PROTEIN, SERUM 5.7 g/dL (6.0-8.3)
[2023-11-07 16:33] LABS: APPEARANCE,URINE CLOUDY (CLEAR); BILIRUBIN,URINE NEGATIVE (NEGATIVE); COLOR,URINE LIGHT-ORANGE (YELLOW); GLUCOSE, URINE (UA) NEGATIVE (NEGATIVE); KETONES,URINE NEGATIVE (NEGATIVE); LEUKOCYTE ESTERASE ,URINE NEGATIVE Leu/uL (NEGATIVE); NITRATE,URINE NEGATIVE (NEGATIVE); OCCULT BLOOD,URINE LARGE (NEGATIVE); PROTEIN,URINE 300 mg/dL (NEGATIVE); UROBILINOGEN,URINE 3 mg/dL (0.2-1.0)
[2023-11-07 16:36] LABS: ADD UA MICROSCOPIC YES
[2023-11-07 16:37] LABS: BACTERIA,URINE RARE /HPF (None Seen); MUCUS,URINE RARE LPF (None Seen); OTHER CASTS, URINE 4 /LPF (None Seen); RBC,URINE >100 /HPF (0-1); UNCLASSIFIED CRYSTAL 24 /HPF (None Seen); YEAST,URINE BUDDING MOD /HPF (None Seen)
[2023-11-07] MEDS ORDERED: IOHEXOL-350 75 ML VIAL IV ONE (16:46)
[2023-11-07] MEDS ORDERED: FURO40TA5 PO ×2 (18:16→18:32)
[2023-11-07 18:19] VITALS: BP 123/75; PULSE 75; RESP 18; O2SAT 99
== END 2023-11-07 18:33 | disposition home or self-care (01) ==
LOC: EDH 14:40
DX: K74.60 Unspecified cirrhosis of liver (principal); E87.70 Fluid overload, unspecified; Z79.899 Other long term (current) drug therapy; Z98.890 Other specified postprocedural states
CPT/HCPCS: 99285; 74177; 96374; 80053; 83690; 85025; 87088; 81001; 36415; J1940; Q9967

== ENCOUNTER 2023-12-05 09:25 | Emergency (ER) | payer OTHER ==
[~2023-12-05] VITALS: Ht 162.6 cm; Wt 94.9 kg
[~2023-12-05 09:25] MED LIST changes: +FURO40TA5 PO
[2023-12-05 09:26] VITALS: BP 124/74; PULSE 87; RESP 16
[2023-12-05 09:52] LABS: BASOPHILS # (AUTO) 0.05 K/uL (0.00-0.20); BASOPHILS % (AUTO) 1.2 % (0.0-5.0); EOSINOPHILS # (AUTO) 0.23 K/uL (0.00-0.70); EOSINOPHILS % (AUTO) 5.4 % (0.0-8.0); HEMATOCRIT 28.9 % (42-54); LYMPHOCYTES # (AUTO) 0.9 K/uL (1.0-4.8); LYMPHOCYTES % (AUTO) 20.8 % (21.0-51.0); MEAN CORPUSCULAR HEMOGLOBIN 36.5 pg (27.0-33.0); MEAN CORPUSCULAR HGB CONC 36.3 g/dL (32.0-36.0); MEAN CORPUSCULAR VOLUME 100.3 fL (79-99); MONOCYTES # (AUTO) 0.5 K/uL (0.1-1.0); MONOCYTES % (AUTO) 11.2 % (3.0-13.0); NEUTROPHILS # (AUTO) 2.6 K/uL (1.8-7.7); NEUTROPHILS % (AUTO) 61.4 % (40.0-77.0); PLATELET COUNT (AUTO) 110 K/uL (130-400); RED BLOOD CELL COUNT(AUTO) 2.88 MIL/uL (4.50-6.20); RED CELL DISTRIBUTION WIDTH 14.6 % (11.0-15.5); WHITE BLOOD COUNT (AUTO) 4.3 K/uL (4.8-10.8)
[2023-12-05 10:02] LABS: CREATININE 1.4 mg/dL (0.5-1.5); POTASSIUM 3.8 mmol/L (3.5-5.1)
[2023-12-05 10:04] LABS: INR 1.01 (0.85-1.15); PROTHROMBIN TIME 11.7 SEC (9.6-11.6)
[2023-12-05 10:05] LABS: PARTIAL THROMBOPLASTIN TIME 31.6 SEC (26.3-35.5)
[2023-12-05 10:08] LABS: ALBUMIN 1.3 g/dL (3.5-5.0); BILIRUBIN,TOTAL 1.3 mg/dL (0.2-1.0); TOTAL PROTEIN, SERUM 4.8 g/dL (6.0-8.3)
[2023-12-05] MEDS ORDERED: ALBUMIN (HUMAN) 25% 0 ML IV ONE (10:12)
== END 2023-12-05 10:36 | disposition home or self-care (01) ==
LOC: EDH 09:25
DX: K74.60 Unspecified cirrhosis of liver (principal); N18.9 Chronic kidney disease, unspecified; Z79.899 Other long term (current) drug therapy; Z98.890 Other specified postprocedural states
CPT/HCPCS: 36415; 76705; 80053; 83690; 85025; 85610; 85730; P9046

== ENCOUNTER 2024-02-05 12:19 | Inpatient (IN) | payer OTHER ==
[~2024-02-05] VITALS: Ht 162.6 cm; Wt 95.0 kg
[2024-02-05 13:25] VITALS: TEMP 101
[2024-02-05] MEDS: ACETAMINOPHEN 500 MG TABLET PO ONE (13:25)
[2024-02-05 13:30] LABS: BASOPHILS # (AUTO) 0.03 K/uL (0.00-0.20); BASOPHILS % (AUTO) 0.3 % (0.0-5.0); EOSINOPHILS # (AUTO) 0.02 K/uL (0.00-0.70); EOSINOPHILS % (AUTO) 0.2 % (0.0-8.0); HEMATOCRIT 31.2 % (42-54); IMMATURE GRANULOCYTE ABSOLUTE 0.04 K/uL (0-1); LYMPHOCYTES # (AUTO) 0.6 K/uL (1.0-4.8); LYMPHOCYTES % (AUTO) 6.2 % (21.0-51.0); MEAN CORPUSCULAR HGB CONC 35.6 g/dL (32.0-36.0); MEAN CORPUSCULAR VOLUME 101.3 fL (79-99); MONOCYTES # (AUTO) 0.5 K/uL (0.1-1.0); MONOCYTES % (AUTO) 4.6 % (3.0-13.0); NEUTROPHILS # (AUTO) 9.2 K/uL (1.8-7.7); NEUTROPHILS % (AUTO) 88.3 % (40.0-77.0); PLATELET COUNT (AUTO) 83 K/uL (130-400); RED BLOOD CELL COUNT(AUTO) 3.08 MIL/uL (4.50-6.20); RED CELL DISTRIBUTION WIDTH 13.9 % (11.0-15.5); WHITE BLOOD COUNT (AUTO) 10.4 K/uL (4.8-10.8)
[2024-02-05] MEDS: KETOROLAC 30MG VIAL (30MG/ML) IVP ONE (13:30)
[2024-02-05] MEDS: 0.9%NACL 1000ML 1,000 ML IV ONE (13:30)
[2024-02-05 13:44] LABS: ALBUMIN 1.4 g/dL (3.5-5.0); BILIRUBIN,TOTAL 3.5 mg/dL (0.2-1.0); CREATININE 1.6 mg/dL (0.5-1.3); TOTAL PROTEIN, SERUM 5.7 g/dL (6.0-8.3)
[2024-02-05 13:45] LABS: ADD UA MICROSCOPIC YES; APPEARANCE,URINE TURBID (CLEAR); BACTERIA,URINE FEW /HPF (None Seen); BILIRUBIN,URINE NEGATIVE (NEGATIVE); COLOR,URINE ORANGE (YELLOW); GLUCOSE, URINE (UA) NEGATIVE (NEGATIVE); KETONES,URINE NEGATIVE (NEGATIVE); LEUKOCYTE ESTERASE ,URINE 75 Leu/uL (NEGATIVE); MUCUS,URINE RARE LPF (None Seen); NITRATE,URINE NEGATIVE (NEGATIVE); OCCULT BLOOD,URINE LARGE (NEGATIVE); PH,URINE 5.5 (5.0-8.0); PROTEIN,URINE 100 mg/dL (NEGATIVE); RBC,URINE TNTC /HPF (0-1); SQUAMOUS EPITHELIAL CELL,UR RARE /HPF (0-2); UROBILINOGEN,URINE 3 mg/dL (0.2-1.0); WBC,URINE 26-50 /HPF (0-1); YEAST,URINE BUDDING RARE /HPF (None Seen)
[2024-02-05 14:16] LABS: BAND NEUTROPHILS % (MANUAL) 30 % (0-2); EOSINOPHILS % (MANUAL) 1 % (1-6); LYMPHOCYTES % (MANUAL) 9 % (22-44); MAN.DIFF COMMENT-IMPRESSION MANUAL DIFFERENTIAL; MONOCYTES % (MANUAL) 3 % (2-9); PLATELET MORPHOLOGY COMMENT DECREASED; SEGMENTED NEUTROPHILS % 57 % (40-70); TOTAL CELLS COUNTED 100; WBC MORPHOLOGY CONSISTENT W/DIFF
[2024-02-05 14:38] LABS: INR 1.1 (0.85-1.15); PROTHROMBIN TIME 12.9 SEC (9.6-11.6)
[2024-02-05] MEDS: POTASSIUM BICARB/CIT AC 25 MEQ TABLET.EFF PO ONE (14:38)
[2024-02-05] MEDS: ZOSYN 3.375GM+NS 50ML 50 ML IVPB STA (14:38)
[2024-02-05 14:39] LABS: PARTIAL THROMBOPLASTIN TIME 31.3 SEC (26.3-35.5)
[2024-02-05] MEDS: 0.9%NACL 1000ML 1,776 ML IV ONE (14:52)
[2024-02-05] MEDS ORDERED: MEROPENEM 1 GM in 0.9%NACL 100ML 100 ML IVPB SCH (16:00)
[2024-02-05] MEDS ORDERED: POTASSIUM CHLORIDE 20MEQ/100ML 100 ML IV PRN (17:00)
[2024-02-05] MEDS ORDERED: ONDANSETRON 4MG INJ IVP PRN ×2 (17:00)
[2024-02-05] MEDS ORDERED: IPRATROPIUM 0.5 MG/2.5 ML INH IH PRN (17:00)
[2024-02-05] MEDS: THIAMINE HCL 100 MG/ML 2ML VIAL IVP SCH (17:15)
[2024-02-05] MEDS: RIFAXIMIN 550 MG TABLET PO SCH (17:15)
[2024-02-05] MEDS: LACTULOSE 20 GM/30 ML UDCUP PO SCH (17:15)
[2024-02-05] MEDS: MEROPENEM 1 GM/NS 100 CRCL 26-50 IV SCH (17:15)
[2024-02-05] MEDS: PANTOPRAZOLE 40 MG/VIAL IVP SCH (17:15)
[2024-02-05] MEDS: ALBUMIN (HUMAN) 25% 100 ML IV SCH (17:16)
[2024-02-05] MEDS: MEROPENEM 1 GM VIAL ONE (17:16)
[2024-02-05 17:20] LABS: SARS-CoV-2, RNA, NAAT NEGATIVE SARS CoV-2 (NEGATIVE)
[2024-02-05 17:27] LABS: INFLUENZA TYPE A Negative For Type A (NEGATIVE); INFLUENZA TYPE B Negative For Type B (NEGATIVE)
[2024-02-05] MEDS: MAGNESIUM 2GM PREMIX 50ML 50 ML IV SCH (18:35)
[2024-02-05 21:58] LABS: POTASSIUM 3.3 mmol/L (3.5-5.1)
[2024-02-05 22:08] VITALS: BP 125/69; PULSE 75; RESP 17; O2SAT 100
[2024-02-05] MEDS: POTASSIUM CHLORIDE 10% ELIXIR 20 MEQ/15 ML UDCUP PO PRN (22:26)
[2024-02-05] MEDS ORDERED: FURO40TA5 PO (22:47)
[2024-02-05] MEDS ORDERED: LEVO25CA4 PO (22:50)
[2024-02-06] VITALS (12 sets, daily range): BP systolic 99–139; BP diastolic 53–71; PULSE 76–96; RESP 13–20; O2SAT 97–99
[2024-02-06 04:28] LABS: BASOPHILS # (AUTO) 0.01 K/uL (0.00-0.20); BASOPHILS % (AUTO) 0.1 % (0.0-5.0); EOSINOPHILS # (AUTO) 0.05 K/uL (0.00-0.70); EOSINOPHILS % (AUTO) 0.7 % (0.0-8.0); HEMATOCRIT 24.5 % (42-54); IMMATURE GRANULOCYTE ABSOLUTE 0.02 K/uL (0-1); LYMPHOCYTES # (AUTO) 0.9 K/uL (1.0-4.8); LYMPHOCYTES % (AUTO) 11.7 % (21.0-51.0); MEAN CORPUSCULAR HEMOGLOBIN 35.4 pg (27.0-33.0); MEAN CORPUSCULAR HGB CONC 34.3 g/dL (32.0-36.0); MEAN CORPUSCULAR VOLUME 103.4 fL (79-99); MONOCYTES # (AUTO) 0.6 K/uL (0.1-1.0); NEUTROPHILS # (AUTO) 5.9 K/uL (1.8-7.7); NEUTROPHILS % (AUTO) 79.2 % (40.0-77.0); PLATELET COUNT (AUTO) 66 K/uL (130-400); RED BLOOD CELL COUNT(AUTO) 2.37 MIL/uL (4.50-6.20); RED CELL DISTRIBUTION WIDTH 14.2 % (11.0-15.5); WHITE BLOOD COUNT (AUTO) 7.4 K/uL (4.8-10.8)
[2024-02-06 05:20] LABS: ALBUMIN 1.8 g/dL (3.5-5.0); BILIRUBIN,TOTAL 3.7 mg/dL (0.2-1.0); CREATININE 1.6 mg/dL (0.5-1.3); MAGNESIUM 1.9 mg/dL (1.80-2.40); POTASSIUM 3.9 mmol/L (3.5-5.1); TOTAL PROTEIN, SERUM 4.9 g/dL (6.0-8.3)
[2024-02-06] MEDS: Vitamin B Complex/Vit C/Folic Acid PO SCH (09:32)
[2024-02-06] MEDS ORDERED: COMPOUND IV REFRIGERATED 1 EACH IVSOLN MISC PRN (10:30)
[2024-02-06] MEDS ORDERED: COMPOUND IV MISC 1 EACH IVSOLN MISC PRN (10:30)
[2024-02-06] MEDS: ACETAMINOPHEN 500 MG TABLET PO PRN (13:42)
[2024-02-07] VITALS (7 sets, daily range): BP systolic 105–132; BP diastolic 64–76; PULSE 75–88; RESP 17–18; O2SAT 99–100
[2024-02-08] VITALS (9 sets, daily range): BP systolic 104–128; BP diastolic 62–77; PULSE 60–80; RESP 16–20; O2SAT 97–100
[2024-02-08] MEDS: FUROSEMIDE 20 MG TABLET PO SCH (09:19)
[2024-02-09 03:45] VITALS: BP 116/74; PULSE 68; RESP 20
[2024-02-09 03:52] LABS: BASOPHILS # (AUTO) 0.03 K/uL (0.00-0.20); BASOPHILS % (AUTO) 0.7 % (0.0-5.0); EOSINOPHILS # (AUTO) 0.16 K/uL (0.00-0.70); EOSINOPHILS % (AUTO) 3.9 % (0.0-8.0); HEMATOCRIT 25.3 % (42-54); IMMATURE GRANULOCYTE ABSOLUTE 0.03 K/uL (0-1); LYMPHOCYTES # (AUTO) 1.2 K/uL (1.0-4.8); LYMPHOCYTES % (AUTO) 29.7 % (21.0-51.0); MEAN CORPUSCULAR HEMOGLOBIN 36.1 pg (27.0-33.0); MEAN CORPUSCULAR HGB CONC 34.4 g/dL (32.0-36.0); MONOCYTES # (AUTO) 0.5 K/uL (0.1-1.0); MONOCYTES % (AUTO) 11.5 % (3.0-13.0); NEUTROPHILS # (AUTO) 2.2 K/uL (1.8-7.7); NEUTROPHILS % (AUTO) 53.5 % (40.0-77.0); PLATELET COUNT (AUTO) 89 K/uL (130-400); RED BLOOD CELL COUNT(AUTO) 2.41 MIL/uL (4.50-6.20); RED CELL DISTRIBUTION WIDTH 13.7 % (11.0-15.5); WHITE BLOOD COUNT (AUTO) 4.1 K/uL (4.8-10.8)
[2024-02-09 04:18] LABS: ALBUMIN 1.8 g/dL (3.5-5.0); BILIRUBIN,TOTAL 1.4 mg/dL (0.2-1.0); CREATININE 1.4 mg/dL (0.5-1.3); MAGNESIUM 1.9 mg/dL (1.80-2.40); POTASSIUM 3.5 mmol/L (3.5-5.1); TOTAL PROTEIN, SERUM 4.8 g/dL (6.0-8.3)
[2024-02-09] MEDS: KCL 20 MEQ ERTAB PO PRN (06:28)
[2024-02-09 07:53] VITALS: BP 119/77; PULSE 75; RESP 20
[2024-02-09 09:00] VITALS: O2SAT 100
[2024-02-09] MEDS ORDERED: RIFA550T PO (10:42)
[2024-02-09] MEDS ORDERED: FURO20TA6 PO (10:42)
== END 2024-02-09 13:22 | disposition home or self-care (01) | DRG 872 ==
LOC: EDH 12:19 → EDHIP 12:20 → 2CH 21:53 → 2AH 02-06 14:49
PROVIDERS: ADMIT Internal Medicine; ATTEND Internal Medicine
DX: A41.50 Gram-negative sepsis, unspecified (principal); N39.0 Urinary tract infection, site not specified; Z16.12 Extended spectrum beta lactamase (ESBL) resistance; Z16.24 Resistance to multiple antibiotics; K80.20 Calculus of gallbladder without cholecystitis without obstruction; D69.6 Thrombocytopenia, unspecified; K74.60 Unspecified cirrhosis of liver; E86.0 Dehydration; Z20.822 Contact with and (suspected) exposure to COVID-19; E88.09 Other disorders of plasma-protein metabolism, not elsewhere classified; K76.82 Hepatic encephalopathy; R65.20 Severe sepsis without septic shock; B96.20 Unspecified Escherichia coli [E. coli] as the cause of diseases classified elsewhere; D75.89 Other specified diseases of blood and blood-forming organs; N18.30 Chronic kidney disease, stage 3 unspecified; Z86.19 Personal history of other infectious and parasitic diseases; Z79.899 Other long term (current) drug therapy
CPT/HCPCS: 36415; 71045; 74176; 76705; 78226; 80053; 81001; 82140; 82607; 82746; 82948; 83605; 83690; 83735; 84100; 84132; 84145; 85025; 85610; 85651; 85730; 86140; 86850; 86900; 86901; 87040; 87077; 87088; 87186; 87635; 87804; 93970; 96365; 96375; A9537; C9113; G0378; J1885; J2185; J2543; J3411; J3475; P9046; A4600

== ENCOUNTER 2024-03-19 13:28 | Emergency (ER) | payer OTHER ==
[~2024-03-19] VITALS: Ht 162.6 cm; Wt 81.6 kg
[~2024-03-19 13:28] MED LIST changes: -FERS325 PO; +LEVO25CA4 PO; -MULT1CAP17 PO; -SPIR25TA6 PO
[2024-03-19 13:58] LABS: BASOPHILS # (AUTO) 0.04 K/uL (0.00-0.20); BASOPHILS % (AUTO) 0.5 % (0.0-5.0); EOSINOPHILS % (AUTO) 2.5 % (0.0-8.0); HEMATOCRIT 24.3 % (42-54); IMMATURE GRANULOCYTE ABSOLUTE 0.03 K/uL (0-1); LYMPHOCYTES # (AUTO) 1.4 K/uL (1.0-4.8); LYMPHOCYTES % (AUTO) 17.2 % (21.0-51.0); MEAN CORPUSCULAR HGB CONC 36.6 g/dL (32.0-36.0); MEAN CORPUSCULAR VOLUME 95.7 fL (79-99); MONOCYTES # (AUTO) 0.9 K/uL (0.1-1.0); MONOCYTES % (AUTO) 10.5 % (3.0-13.0); NEUTROPHILS # (AUTO) 5.6 K/uL (1.8-7.7); NEUTROPHILS % (AUTO) 68.9 % (40.0-77.0); PLATELET COUNT (AUTO) 102 K/uL (130-400); RED BLOOD CELL COUNT(AUTO) 2.54 MIL/uL (4.50-6.20); RED CELL DISTRIBUTION WIDTH 14.6 % (11.0-15.5); WHITE BLOOD COUNT (AUTO) 8.1 K/uL (4.8-10.8)
[2024-03-19 14:06] LABS: CREATININE 1.8 mg/dL (0.5-1.3); POTASSIUM 3.1 mmol/L (3.5-5.1)
[2024-03-19 14:42] LABS: APPEARANCE,URINE CLEAR (CLEAR); BILIRUBIN,URINE NEGATIVE (NEGATIVE); COLOR,URINE YELLOW (YELLOW); GLUCOSE, URINE (UA) NEGATIVE (NEGATIVE); KETONES,URINE NEGATIVE (NEGATIVE); LEUKOCYTE ESTERASE ,URINE NEGATIVE Leu/uL (NEGATIVE); NITRATE,URINE NEGATIVE (NEGATIVE); OCCULT BLOOD,URINE LARGE (NEGATIVE); PROTEIN,URINE 100 mg/dL (NEGATIVE); UROBILINOGEN,URINE 0.2 mg/dL (0.2-1.0)
[2024-03-19 14:44] LABS: ADD UA MICROSCOPIC YES
[2024-03-19 14:56] LABS: BACTERIA,URINE FEW /HPF (None Seen); MUCUS,URINE RARE LPF (None Seen); OTHER CASTS, URINE 1 /LPF (None Seen); RBC,URINE 26-50 /HPF (0-1); SQUAMOUS EPITHELIAL CELL,UR RARE /HPF (0-2)
[2024-03-19 15:03] VITALS: BP 113/71; PULSE 82; RESP 16; O2SAT 99
[2024-03-19] MEDS ORDERED: PANT40TA55 PO (15:21)
[2024-03-19] MEDS: POTASSIUM BICARB/CIT AC 25 MEQ TABLET.EFF PO ONE (15:24)
== END 2024-03-19 15:32 | disposition home or self-care (01) ==
LOC: EDH 13:28
DX: K74.60 Unspecified cirrhosis of liver (principal); R18.8 Other ascites; E87.6 Hypokalemia; Z79.890 Hormone replacement therapy; Z79.899 Other long term (current) drug therapy
CPT/HCPCS: 36415; 74176; 80048; 81001; 85025; 87088

== ENCOUNTER 2024-07-11 11:28 | Emergency (ER) | payer MEDICARE, OTHER ==
[~2024-07-11] VITALS: Ht 157.5 cm; Wt 86.6 kg
[~2024-07-11 11:28] MED LIST changes: +PANT40TA55 PO
[2024-07-11 12:42] VITALS: BP 132/67; PULSE 80; RESP 16; TEMP 98.2; O2SAT 95
[2024-07-11 13:10] LABS: BASOPHILS # (AUTO) 0.03 K/uL (0.00-0.20); BASOPHILS % (AUTO) 0.5 % (0.0-5.0); EOSINOPHILS # (AUTO) 0.16 K/uL (0.00-0.70); EOSINOPHILS % (AUTO) 2.7 % (0.0-8.0); HEMATOCRIT 25.6 % (42-54); IMMATURE GRANULOCYTE ABSOLUTE 0.03 K/uL (0-1); MEAN CORPUSCULAR HEMOGLOBIN 35.7 pg (27.0-33.0); MEAN CORPUSCULAR HGB CONC 35.9 g/dL (32.0-36.0); MEAN CORPUSCULAR VOLUME 99.2 fL (79-99); MONOCYTES # (AUTO) 0.7 K/uL (0.1-1.0); NEUTROPHILS # (AUTO) 3.9 K/uL (1.8-7.7); NEUTROPHILS % (AUTO) 67.3 % (40.0-77.0); PLATELET COUNT (AUTO) 121 K/uL (130-400); RED BLOOD CELL COUNT(AUTO) 2.58 MIL/uL (4.50-6.20); RED CELL DISTRIBUTION WIDTH 15.6 % (11.0-15.5); WHITE BLOOD COUNT (AUTO) 5.8 K/uL (4.8-10.8)
== END 2024-07-11 14:12 | disposition home or self-care (01) ==
LOC: EDH 11:28
DX: F41.9 Anxiety disorder, unspecified (principal); I10 Essential (primary) hypertension; Z79.890 Hormone replacement therapy; Z79.899 Other long term (current) drug therapy; Z98.890 Other specified postprocedural states
CPT/HCPCS: 36415; 85025

== ENCOUNTER 2024-08-20 17:40 | Inpatient (IN) | payer OTHER ==
[~2024-08-20] VITALS: Ht 154.9 cm; Wt 86.2 kg
[~2024-08-20 17:40] MED LIST changes: -FURO40TA5 PO
--- NOTE | 2024-08-20 18:20 | ERN ---
General Chief Complaint: Altered Mental Status Stated Complaint: AMS. ELEVATED AMMONIA Time Seen by MD: 17:42 Source: patient History of Present Illness Initial Comments Patient is a 59-year-old male coming in to be evaluated for altered mental status. Per family member at bedside patient has a extensive history of liver cirrhosis and frequently presents with the elevated ammonia. In his occasion patient was visiting whenever his family members was gone for two weeks when he came back he was altered. Allergies: Coded Allergies: No Known Allergies (Unverified Allergy, Unknown, 03/24/22) Home Meds Active Scripts Pantoprazole Sodium (Protonix) 40 Mg Ectab, 40 MG PO DAILY for 30 Days, #30 TAB.EC Prov:ATIFLOC Britni BULLOCK 07/28/24 Rifaximin (Xifaxan) 550 Mg Tablet, 550 MG PO Q12H, #60 TAB 0 Refills Prov:SRIVASTAVALOC BULLOCK 07/28/24 Furosemide (Lasix 20Mg Tab) 20 Mg Tablet, 20 MG PO DAILY, #30 TAB 0 Refills Prov:SRIVASTAVALOC BULLOCK 07/28/24 Levothyroxine Sodium (Levothyroxine) 25 Mcg Capsule, 50 MCG PO ACBKFST, #30 CAP GIVE ON EMPTY STOMACH Prov:SRIVASTAVALOC BULLOCK 07/28/24 Lactulose (Lactulose) 20 Gram/30 Ml Solution, 20 GM PO QID for HEPATIC ENCEPHALOPATHY for 30 Days, #1 BOTTLE 1 Refill Take 30 mL orally 4 times a day Prov:ATIFLOC Britni BULLOCK 07/28/24 Past Medical History Past Medical History: Hypertension, Liver Disease Medical History Other: RENAL INUSUFFICIENCY, THYROID DISEASE, Past Surgical History: Other Surgical History Other: UMBILICAL HERNIA REPAIR Social History Social History: Lives with family, Other ROS Dictation Altered mental status Physical Exam Physical Exam Dictation VITAL SIGNS: Reviewed. GENERAL APPEARANCE: Alert, oriented x1, no acute distress, obese. HEAD AND FACE: Non-traumatic. EYES: PERRL, pink conjunctivas, eyelid no trauma, anterior chamber clear. EARS: Pinnas intact and no signs of trauma or erythema. Ear canals clear and no discharge. TMs no erythema. NOSE: No discharge, no bleeding. OROPHARYNX: Mouth normal, teeth no caries, tongue pink. Pharynx clear, no erythema. Tonsils no exudates, no abscesses noted. Mucous membrane moist. NECK: Supple, non-tender, no thyromegaly, no masses, no JVD, no bruits. BREAST: Deferred. CHEST: No tenderness, no crepitus, no paradoxical movement, no retractions. LUNGS: Clear, well-ventilated, symmetric, no rales, no wheezing, no rhonchi, no stridor, good breath sounds bilaterally. HEART: Regular rate, regular rhythm, no murmur, no gallops. VASCULAR: No peripheral edema. ABDOMEN: Soft, positive bowel sounds, nondistended, no guarding, nontender, no rebound, no masses no hepatomegaly, no splenomegaly, no Cooper's sign, no hernias. RECTAL: Deferred. GENITAL: Deferred. NEUROLOGICAL: Normal speech, gross motor function intact, gross sensory function intact. MUSCULOSKELETAL: Neck nontender, full range of motion, back nontender, full range of motion. EXTREMITIES: Nontender, full range of motion. SKIN: Color pink, dry, no turgor, no rash, no lacerations, no abrasions, no contusions. LYMPHATICS: Deferred. Results Laboratory and Microbiology Lab and Micro Result Laboratory Tests Test 08/20/24 18:13 White Blood Count 7.9 K/uL (4.8-10.8) Red Blood Count 2.54 MIL/uL (4.50-6.20) L Hemoglobin 8.9 g/dL (14.0-18.0) L Hematocrit 25.7 % (42-54) L Mean Corpuscular Volume 101.2 fL (79-99) H Mean Corpuscular Hemoglobin 35.0 pg (27.0-33.0) H Mean Corpuscular Hemoglobin Concent 34.6 g/dL (32.0-36.0) Red Cell Distribution Width 14.4 % (11.0-15.5) Platelet Count 126 K/uL (130-400) L Mean Platelet Volume 8.9 fL (7.5-10.5) Immature Granulocyte % (Auto) 0.5 % (0-1) Neutrophils (%) (Auto) 82.1 % (40.0-77.0) H Lymphocytes (%) (Auto) 9.6 % (21.0-51.0) L Monocytes (%) (Auto) 5.9 % (3.0-13.0) Eosinophils (%) (Auto) 1.4 % (0.0-8.0) Basophils (%) (Auto) 0.5 % (0.0-5.0) Neutrophils # (Auto) 6.5 K/uL (1.8-7.7) Lymphocytes # (Auto) 0.8 K/uL (1.0-4.8) L Monocytes # (Auto) 0.5 K/uL (0.1-1.0) Eosinophils # (Auto) 0.11 K/uL (0.00-0.70) Basophils # (Auto) 0.04 K/uL (0.00-0.20) Absolute Immature Granulocyte (auto 0.04 K/uL (0-1) Nucleated Red Blood Cells 0.0 % (0.0-0.19) White Cell Morphology Comment See comments Sodium Level 144 mmol/L (136-145) Potassium Level 3.6 mmol/L (3.5-5.1) Chloride Level 111 mmol/L (101-111) Carbon Dioxide Level 27 mmol/L (21-32) Blood Urea Nitrogen 13 mg/dL (7-18) Creatinine 1.6 mg/dL (0.5-1.3) H Glomerular Filtration Rate Calc 49 mL/min (>90) Random Glucose 108 mg/dL (70-105) H Total Calcium 7.7 mg/dL (8.5-10.1) L Total Bilirubin 2.4 mg/dL (0.2-1.0) H Direct Bilirubin 0.5 mg/dL (0.0-0.3) H Aspartate Amino Transf (AST/SGOT) 63 U/L (10-37) H Alanine Aminotransferase (ALT/SGPT) 26 U/L (12-78) Alkaline Phosphatase 153 U/L (50-136) H Ammonia 118 umol/L (11-32) *H Total Protein 5.3 g/dL (6.0-8.3) L Albumin 1.3 g/dL (3.5-5.0) L Labs Reviewed?: Yes MDM MDM: Differential diagnosis: Metabolic encephalopathy, generalized body weakness Rationale: Tests considered and ordered secondary to shared decision making include: Previous outside records reviewed: Old ER visits. Risk of complication and/or morbidity or mortality of patient management: None Medications-Per medication reconciliation Need for hospitalization: Patient does meet criteria for hospitalization. Need for emergency major/minor surgery: No There are no social concerns with this patient. Prescription drug management Prescriptions will include symptomatic care Patient's prior external medical records from other ER visits were reviewed by me as indicated. Prior testing and results from previous visits were reviewed. Prior tests were taken into account with medical decision making and resource utilization, independent historian/historians were used to obtain complete medical history. I independently interpreted the test that were performed, results were reviewed by me and considered findings on radiology if ordered. Medical management and examination interpretation discussions were had by me with other qualified healthcare professionals as indicated for the patient's care. ED Course Orders Procedure Category Date Status Time Cbc With Differential LAB 08/20/24 Complete 18:00 Basic Metabolic Panel LAB 08/20/24 Complete 18:00 Urinalysis Profile LAB 08/20/24 Logged 18:00 Ammonia LAB 08/20/24 Complete 18:00 Hepatic Function Panel LAB 08/20/24 Complete 18:00 Vital Signs Date Time Temp Pulse Resp B/P (MAP) Pulse Ox O2 Delivery O2 Flow Rate FiO2 08/20/24 19:05 75 18 132/73 95 Room Air* 0 21 08/20/24 17:42 99.9 75 16 136/94 100 Room Air 0 7:00 p.m. patient is signed out to me by a.m. shift. This is a 59-year-old male with known history of cirrhosis had his last paracentesis on 07/25/2024. Per sister went to visit family members and upon return he was noted to be very confused disoriented and she was concerned that his ammonia might be elevated and brought him to the ER. She does not know if he was compliant with lactulose. Labs reviewed CBC shows a white count of 7.9 hemoglobin 8.9 platelets 126 BNP 7 shows a BUN and creatinine of 13 and 1.6 albumin is 1.3 ammonia 118. Patient also has a low-grade temp of 99.8 Recommended admission to the hospital for hepatic encephalopathy and possible infectious process could be UTI, pneumonia or secondary bacterial peritonitis. DX & DISP Disposition: Inpatient Decision to Admit Time: 19:23 Departure Impression: Primary Impression: Hepatic encephalopathy Additional Impressions: Sepsis, Cirrhosis of liver, Abdominal ascites, Acute kidney injury, Hyperammonemia Condition: Stable Additional Instructions: Patient was informed of all the diagnostic labs and procedures conducted in the emergency room today and demonstrated understanding of the results. I personally reviewed and interpreted all the diagnostic exams performed in the ER today. The patient will be admitted to the hospital for further treatment and evaluation. Disposition-admit to facility Condition-stable/guarded Course-uncertain at this time Pain status-decreased Assessment-exam unchanged Admission Certification- I certify that the patients status is appropriate and is based on my best clinical judgment and the patient's condition as documented in the medical records Referrals: YONY VÁSQUEZ MD (PCP) KAVITHA AWAD MD Aug 20, 2024 18:20 JESSEE PETERSON MD Aug 20, 2024 19:28
[2024-08-20 18:23] LABS: BASOPHILS # (AUTO) 0.04 K/uL (0.00-0.20); BASOPHILS % (AUTO) 0.5 % (0.0-5.0); EOSINOPHILS # (AUTO) 0.11 K/uL (0.00-0.70); EOSINOPHILS % (AUTO) 1.4 % (0.0-8.0); HEMATOCRIT 25.7 % (42-54); IMMATURE GRANULOCYTE ABSOLUTE 0.04 K/uL (0-1); LYMPHOCYTES # (AUTO) 0.8 K/uL (1.0-4.8); LYMPHOCYTES % (AUTO) 9.6 % (21.0-51.0); MEAN CORPUSCULAR HGB CONC 34.6 g/dL (32.0-36.0); MEAN CORPUSCULAR VOLUME 101.2 fL (79-99); MONOCYTES # (AUTO) 0.5 K/uL (0.1-1.0); MONOCYTES % (AUTO) 5.9 % (3.0-13.0); NEUTROPHILS # (AUTO) 6.5 K/uL (1.8-7.7); NEUTROPHILS % (AUTO) 82.1 % (40.0-77.0); PLATELET COUNT (AUTO) 126 K/uL (130-400); RED BLOOD CELL COUNT(AUTO) 2.54 MIL/uL (4.50-6.20); RED CELL DISTRIBUTION WIDTH 14.4 % (11.0-15.5); WHITE BLOOD COUNT (AUTO) 7.9 K/uL (4.8-10.8)
[2024-08-20 18:46] LABS: CREATININE 1.6 mg/dL (0.5-1.3); POTASSIUM 3.6 mmol/L (3.5-5.1)
[2024-08-20 18:53] LABS: ALBUMIN 1.3 g/dL (3.5-5.0); BILIRUBIN,DIRECT 0.5 mg/dL (0.0-0.3); BILIRUBIN,TOTAL 2.4 mg/dL (0.2-1.0); TOTAL PROTEIN, SERUM 5.3 g/dL (6.0-8.3)
[2024-08-20] MEDS: 0.9%NACL 1000ML 1,000 ML IV ONE (19:43)
[2024-08-20] MEDS: cefTRIAXone 1G VIAL IVPB ONE (19:44)
[2024-08-20] MEDS: LACTULOSE 20 GM/30 ML UDCUP PO ONE (19:44)
--- NOTE | 2024-08-20 19:44 | NUR ---
ROCEPHIN WAS PAUSED BLOOD CULTURE ORDER WAS NOTED.
--- NOTE | 2024-08-20 20:39 | NUR ---
ROCEPHIN WAS RESUMED AT THIS TIME
--- NOTE | 2024-08-20 20:52 | HP ---
[facility] HISTORY & PHYSICAL Date Patient Seen: Aug 20, 2024 Time of Visit: 20:52 Supervising Physician: Dr. Jaylen Roth Primary Care Physician: Eren Demarco MD Outpatient Specialists: [ ] Inpatient Consults: [ ] PROBLEM LIST: Acute hepatic encephalopathy, POA Hyperammonemia, POA Liver cirrhosis, POA Chronic Macrocytic anemia, POA Acute kidney injury, POA Hypoalbuminemia, POA Morbid obesity, POA Hypertension, POA Ascites, POA PLAN: Admit to PCCU VS per unit protocol Continue cardiac monitoring Obtain chest x-ray Aspiration precautions Continue lactulose q.i.d. Ammonia level daily Safety precautions Limit sedation Avoid nephrotoxic agents Renally dose all medications Strict I&O Treat fever aggressively Monitor temperature curve Bilateral SCDs Keep SBP less than 160 P.r.n. hydralazine and labetalol CBC, CMP, magnesium level daily HPI: 59-year-old male with past medical history of liver cirrhosis, morbid obesity, hypertension, chronic ascites, chronic anemia who presented to ED by private vehicle with complaint of alteration in mental status and found to have elevated ammonia level. Per report patient visited her sister earlier today however patient was found to be confused than usual. Sister thought that this could be related to his ammonia level being elevated. She then decided to bring patient to ER for further medical evaluation. In ED stat CBC was done and s howed no acute infection however there is chronic anemia, his CMP is significant for creatinine level of 1.6 with normal electrolytes level, his ammonia level was 118 and albumin level of 1.3. Patient was seen and examined in ED with no relatives present at bedside. Patient is encephalopathic able to respond to his name but unable to answer pertinent questions. All information were obtained from ER staff report and prior medical record. In ED patient was given lactulose and a dose of ceftria xone. Unable to complete ROS due to current mental state. At present patient is currently hemodynamically stable, sleepy but arousable, not in acute respiratory distress, with distended abdomen and significant bilateral lower extremity edema. PAST MEDICAL HX: see HPI PAST SURGICAL HX: EGD Paracentesis SOCIAL HISTORY: See HPI Coded Allergies: No Known Allergies (Unverified Allergy, Unknown, 03/24/22) REVIEW OF SYSTEMS: Unable to complete ROS due to current mental state PHYSICAL EXAM: GENERAL: Sleepy, arousable, confused HEENT: EOMI, Sclera non icteric, moist mucosa NECK: Supple, no JVD, trachea midline LUNGS: Diminished bibasilar area HEART: Regular rate and rhythm. Normal S1 and S2, without murmurs ABD: Large abdomen EXT: No clubbing cyanosis 3+ pitting edema NEURO: Sleepy, unable to follow commands but will respond to name Vital Signs (last 8hr) Date Time Temp Pulse Resp B/P (MAP) Pulse Ox O2 Delivery O2 Flow Rate FiO2 08/20/24 19:48 99.9 75 18 143/70 100 Room Air* 0 21 08/20/24 19:05 75 18 132/73 95 Room Air* 0 21 08/20/24 17:42 99.9 75 16 136/94 100 Room Air 0 LABS: Hematology Labs: Test 08/20/24 18:13 Range/Units White Blood Count 7.9 4.8-10.8 K/uL Red Blood Count 2.54 L 4.50-6.20 MIL/uL Hemoglobin 8.9 L 14.0-18.0 g/dL Hematocrit 25.7 L 42-54 % Mean Corpuscular Volume 101.2 H 79-99 fL Mean Corpuscular Hemoglobin 35.0 H 27.0-33.0 pg Mean Corpuscular Hemoglobin Concent 34.6 32.0-36.0 g/dL Red Cell Distribution Width 14.4 11.0-15.5 % Platelet Count 126 L 130-400 K/uL Mean Platelet Volume 8.9 7.5-10.5 fL Immature Granulocyte % (Auto) 0.5 0-1 % Neutrophils (%) (Auto) 82.1 H 40.0-77.0 % Lymphocytes (%) (Auto) 9.6 L 21.0-51.0 % Monocytes (%) (Auto) 5.9 3.0-13.0 % Eosinophils (%) (Auto) 1.4 0.0-8.0 % Basophils (%) (Auto) 0.5 0.0-5.0 % Neutrophils # (Auto) 6.5 1.8-7.7 K/uL Lymphocytes # (Auto) 0.8 L 1.0-4.8 K/uL Monocytes # (Auto) 0.5 0.1-1.0 K/uL Eosinophils # (Auto) 0.11 0.00-0.70 K/uL Basophils # (Auto) 0.04 0.00-0.20 K/uL Absolute Immature Granulocyte (auto 0.04 0-1 K/uL Nucleated Red Blood Cells 0.0 0.0-0.19 % White Cell Morphology Comment See comments Chemistry Labs: Test 08/20/24 18:13 Range/Units Sodium Level 144 136-145 mmol/L Potassium Level 3.6 3.5-5.1 mmol/L Chloride Level 111 101-111 mmol/L Carbon Dioxide Level 27 21-32 mmol/L Blood Urea Nitrogen 13 7-18 mg/dL Creatinine 1.6 H 0.5-1.3 mg/dL Glomerular Filtration Rate Calc 49 >90 mL/min Random Glucose 108 H 70-105 mg/dL Total Calcium 7.7 L 8.5-10.1 mg/dL Total Bilirubin 2.4 H 0.2-1.0 mg/dL Direct Bilirubin 0.5 H 0.0-0.3 mg/dL Aspartate Amino Transf (AST/SGOT) 63 H 10-37 U/L Alanine Aminotransferase (ALT/SGPT) 26 12-78 U/L Alkaline Phosphatase 153 H 50-136 U/L Ammonia 118 *H 11-32 umol/L Total Protein 5.3 L 6.0-8.3 g/dL Albumin 1.3 L 3.5-5.0 g/dL DIAGNOSTICS / RADIOLOGY RESULTS: [ ] PLAN NEURO: Minimize central acting medications as possible. Maintain fall precautions, adequate lighting during the day PULMONARY: Supplemental 02 as needed. Maintain aspiration precautions at all times CARDIOVASCULAR: Follow hemodynamics. Vital signs per facility protocol GI & NUTRITION: Continue with nutritional support. Continue stool softeners and laxatives as needed. KIDNEYS & ELECTROLYTES: Strict monitoring of intake, output and overall fluid balance. Avoid nephrotoxic medications to the extent possible. Medications to be dosed according to renal function. Monitor electrolytes and replace as needed ENDOCRINE: Maintain blood glucose between 100-180 at all times. Hypoglycemia protocol in place INFECTIOUS DISEASE: Trend temperature, WBC and procalcitonin level Follow cultures, deescalate antibiotics as soon as possible. Panculture if new onset fever ONCOLOGY/HEMATOLOGY/COAGULATION: Monitor for s/s of bleeding Monitor hemoglobin, coagulation studies as needed SKIN: Pressure ulcer prevention per facility protocol Specialty mattress ORTHO/REHAB: Continue PT/OT Prophylaxis: Continue GI and DVT prophylaxis Code Status: Full Resuscitation Disposition: TBD Other: Total patient care time exceeds 35 minutes excluding all procedures. Supervising physician: WENDI Tyler [facility] Aug 20, 2024 20:52
[2024-08-20] MEDS: INSULIN humuLIN R 100 UNIT/ML 3ML SQ SCH (20:58)
[2024-08-20] MEDS ORDERED: acetaMINOPHEN 650 MG SUPPOSITORY RC PRN (21:00)
[2024-08-20] MEDS ORDERED: hydrALAZine 20MG/ML VIAL IV PRN (21:00)
[2024-08-20] MEDS ORDERED: HYDROcodone/APAP 5/325 1 TAB TABLET PO PRN (21:00)
[2024-08-20] MEDS ORDERED: LACTULOSE 20 GM/30 ML UDCUP PO PRN (21:00)
[2024-08-20] MEDS ORDERED: ondanSETRON 4MG INJ IVP PRN (21:00)
[2024-08-20] MEDS ORDERED: LAbetaLOL 20MG SYG IV PRN (21:00)
[2024-08-20 21:43] VITALS: TEMP 100.5
[2024-08-20] MEDS: acetaMINOPHEN 325 MG TAB PO PRN (21:43)
[2024-08-20] MEDS: ALBUMIN (HUMAN) 25% 100 ML IV SCH (23:37)
[2024-08-21 07:18] LABS: BASOPHILS # (AUTO) 0.02 K/uL (0.00-0.20); BASOPHILS % (AUTO) 0.3 % (0.0-5.0); EOSINOPHILS # (AUTO) 0.11 K/uL (0.00-0.70); EOSINOPHILS % (AUTO) 1.8 % (0.0-8.0); HEMATOCRIT 23.5 % (42-54); IMMATURE GRANULOCYTE ABSOLUTE 0.03 K/uL (0-1); LYMPHOCYTES % (AUTO) 15.7 % (21.0-51.0); MEAN CORPUSCULAR HEMOGLOBIN 34.9 pg (27.0-33.0); MEAN CORPUSCULAR HGB CONC 34.9 g/dL (32.0-36.0); MONOCYTES # (AUTO) 0.4 K/uL (0.1-1.0); MONOCYTES % (AUTO) 6.9 % (3.0-13.0); NEUTROPHILS # (AUTO) 4.5 K/uL (1.8-7.7); NEUTROPHILS % (AUTO) 74.8 % (40.0-77.0); PLATELET COUNT (AUTO) 103 K/uL (130-400); RED BLOOD CELL COUNT(AUTO) 2.35 MIL/uL (4.50-6.20); RED CELL DISTRIBUTION WIDTH 14.3 % (11.0-15.5); WHITE BLOOD COUNT (AUTO) 6.1 K/uL (4.8-10.8)
[2024-08-21 07:27] LABS: CREATININE 1.4 mg/dL (0.5-1.3); MAGNESIUM 1.6 mg/dL (1.80-2.40); PHOSPHORUS 3.4 mg/dL (2.5-4.9)
[2024-08-21 07:35] LABS: POTASSIUM 2.8 mmol/L (3.5-5.1)
--- NOTE | 2024-08-21 07:45 | NUR ---
REPORT RECEIVED FROM ANJALI RIVEROGLUE MAKER BONE
--- NOTE | 2024-08-21 07:54 | PN ---
[facility] PROGRESS NOTE Date Patient Seen: Aug 21, 2024 Time of Visit: 07:33 Supervising Physician: [Dr. Roth] Primary Care Physician: Eren Demarco MD Outpatient Specialists: [ ] Inpatient Consults: [ ] PROBLEM LIST: Acute hepatic encephalopathy, POA Hyperammonemia, POA Liver cirrhosis with ascities, POA s/p paracentesis on 07/25/2024 with 3.9L removed, negative culture Thrombocytopenia in liver cirrhosis Chronic Macrocytic anemia, POA Acute kidney injury, POA Hypoalbuminemia, POA Morbid obesity, POA Hypertension, POA Ascites, POA PLAN: Start lactulose Start rifaxamin Start rocephin, follow blood cultures Continue albumin Q6H Start spironolactone 25mg BID, monitor K+ and creatinine Order UA, blood culture to look for source of infection Pending INR for meld score Tylenol for fever Monitor ammonia level Limit sedation Avoid nephrotoxic agents Renally dose all medications Strict I&O Treat fever aggressively Monitor temperature curve Bilateral SCDs Keep SBP less than 160 P.r.n. hydralazine and labetalol INTERVAL HISTORY: [Is a 59-year-old male with a history of liver cirrhosis who presents to the ED for evaluation of altered mental status. Per ED report patient's family states he had gone to visit family members for a couple of weeks and when he came back he was more altered than usual. He has a history of hyper ammonia anemia, unknown if he was compliant with his lactulose and rifaximin. His labs on admission reveal low platelets at 126, mildly elevated creatinine 1.6, hypoalbuminemia at one three and hyperammonemia and 118. He has been febrile overnight. Did receive a paracentesis on 07/25/2024 with 3.9L of fluid removed culture negative for infection at that time, he received a dose of Rocephin in the ED. has been receiving Tylenol.] REVIEW OF SYSTEMS: Unable to complete ROS due to current mental state PHYSICAL EXAM: GENERAL: Sleepy, arousable, confused HEENT: EOMI, Sclera non icteric, moist mucosa NECK: Supple, no JVD, trachea midline LUNGS: Diminished bibasilar area HEART: Regular rate and rhythm. Normal S1 and S2, without murmurs ABD: Large abdomen EXT: No clubbing cyanosis 3+ pitting edema NEURO: Sleepy, unable to follow commands but will respond to name Vital Signs (last 8hr) Date Time Temp Pulse Resp B/P (MAP) Pulse Ox O2 Delivery O2 Flow Rate FiO2 08/21/24 05:33 71 16 140/79 96 Room Air* 0 21 08/21/24 02:20 78 16 125/54 97 Room Air* 0 21 08/21/24 01:10 78 16 135/72 97 Room Air* 0 21 LABS: Hematology Labs: Test 08/21/24 06:54 08/20/24 18:13 Range/Units White Blood Count 6.1 4.8-10.8 K/uL Red Blood Count 2.35 L 4.50-6.20 MIL/uL Hemoglobin 8.2 L 14.0-18.0 g/dL Hematocrit 23.5 L 42-54 % Mean Corpuscular Volume 100.0 H 79-99 fL Mean Corpuscular Hemoglobin 34.9 H 27.0-33.0 pg Mean Corpuscular Hemoglobin Concent 34.9 32.0-36.0 g/dL Red Cell Distribution Width 14.3 11.0-15.5 % Platelet Count 103 L 130-400 K/uL Mean Platelet Volume 9.0 7.5-10.5 fL Immature Granulocyte % (Auto) 0.5 0-1 % Neutrophils (%) (Auto) 74.8 40.0-77.0 % Lymphocytes (%) (Auto) 15.7 L 21.0-51.0 % Monocytes (%) (Auto) 6.9 3.0-13.0 % Eosinophils (%) (Auto) 1.8 0.0-8.0 % Basophils (%) (Auto) 0.3 0.0-5.0 % Neutrophils # (Auto) 4.5 1.8-7.7 K/uL Lymphocytes # (Auto) 1.0 1.0-4.8 K/uL Monocytes # (Auto) 0.4 0.1-1.0 K/uL Eosinophils # (Auto) 0.11 0.00-0.70 K/uL Basophils # (Auto) 0.02 0.00-0.20 K/uL Absolute Immature Granulocyte (auto 0.03 0-1 K/uL Nucleated Red Blood Cells 0.0 0.0-0.19 % White Cell Morphology Comment See comments Chemistry Labs: Test 08/20/24 20:56 08/20/24 18:13 Range/Units Whole Blood Glucose 96 70-110 MG/DL Sodium Level 144 136-145 mmol/L Potassium Level 3.6 3.5-5.1 mmol/L Chloride Level 111 101-111 mmol/L Carbon Dioxide Level 27 21-32 mmol/L Blood Urea Nitrogen 13 7-18 mg/dL Creatinine 1.6 H 0.5-1.3 mg/dL Glomerular Filtration Rate Calc 49 >90 mL/min Random Glucose 108 H 70-105 mg/dL Total Calcium 7.7 L 8.5-10.1 mg/dL Total Bilirubin 2.4 H 0.2-1.0 mg/dL Direct Bilirubin 0.5 H 0.0-0.3 mg/dL Aspartate Amino Transf (AST/SGOT) 63 H 10-37 U/L Alanine Aminotransferase (ALT/SGPT) 26 12-78 U/L Alkaline Phosphatase 153 H 50-136 U/L Ammonia 118 *H 11-32 umol/L Total Protein 5.3 L 6.0-8.3 g/dL Albumin 1.3 L 3.5-5.0 g/dL DIAGNOSTICS / RADIOLOGY RESULTS: [pending CXR] PLAN NEURO: Minimize central acting medications as possible. Maintain fall precautions, adequate lighting during the day PULMONARY: Supplemental 02 as needed. Maintain aspiration precautions at all times CARDIOVASCULAR: Follow hemodynamics. Vital signs per facility protocol GI & NUTRITION: Continue with nutritional support. Continue stool softeners and laxatives as needed. KIDNEYS & ELECTROLYTES: Strict monitoring of intake, output and overall fluid balance. Avoid nephrotoxic medications to the extent possible. Medications to be dosed according to renal function. Monitor electrolytes and replace as needed ENDOCRINE: Maintain blood glucose between 100-180 at all times. Hypoglycemia protocol in place INFECTIOUS DISEASE: Trend temperature, WBC and procalcitonin level Follow cultures, deescalate antibiotics as soon as possible. Panculture if new onset fever ONCOLOGY/HEMATOLOGY/COAGULATION: Monitor for s/s of bleeding Monitor hemoglobin, coagulation studies as needed SKIN: Pressure ulcer prevention per facility protocol Specialty mattress ORTHO/REHAB: Continue PT/OT Prophylaxis: Continue GI and DVT prophylaxis Code Status: Full Resuscitation Disposition: TBD Other: Total patient care time exceeds 35 minutes excluding all procedures. LULY ZAYAS Aug 21, 2024 07:54
--- NOTE | 2024-08-21 08:22 | HMCIMG ---
CHEST 1VW REASON: AMS COMPARISON: 07/24/2024 FINDINGS: Single view of the chest was obtained. Lungs are clear. Heart size is normal. There is no pulmonary vascular congestion. Mediastinum and bony thorax appear unremarkable. IMPRESSION: 1. Normal single view chest x-ray.
--- NOTE | 2024-08-21 08:31 | NUR ---
AM ALEJOY PROVIDED TO PT
[2024-08-21] MEDS ORDERED: PANTOPrazole 40 MG TAB DR PO SCH (09:00)
[2024-08-21] MEDS: RIFAXIMIN 550 MG TABLET PO SCH (09:46)
[2024-08-21] MEDS: LACTULOSE 20 GM/30 ML UDCUP PO SCH (09:46)
[2024-08-21] MEDS: SPIRONOLACTONE 25 MG TAB PO SCH (09:46)
[2024-08-21] MEDS: furoSEMIDE 20 MG TABLET PO SCH (09:46)
[2024-08-21] MEDS: PANTOPrazole 40 MG TAB DR PO SCH (09:46)
[2024-08-21] MEDS: ASCORBIC ACID 500 MG TAB PO SCH (09:46)
--- NOTE | 2024-08-21 10:00 | NUR ---
PT BRIEF CHANGED D/T CREAMY TYPE STOOL AND URINE INCONTINENCE.
[2024-08-21 13:48] LABS: INR 1.32 (0.85-1.15)
--- NOTE | 2024-08-21 13:55 | NUR ---
PT WAS ASSISTED OOB TO BR VIA W/C. HE HAD A STEADY GAIT FROM W/C TO TOILET.
--- NOTE | 2024-08-21 14:44 | NUR ---
CHACHO COACH CLEANER AT BEDSIDE W/PT AND HIS SIBLING
--- NOTE | 2024-08-21 15:10 | NUR ---
DCP: HOME with sister Rafiq met with pt who lives at sister Sindy Kim's home. Pt on SSI and gets $20.oo in food stamps monthly. Pt reports that he remains independent, enjoys walking, drives. Completes ADLS on his own, uses no DME or in home care services. PCP is [facility] Demarco and uses [facility] for rx. Pt denies dc needs and will return home at dc Addendum: 08/21/24 at 1513 by CHACHO ROBERTO Amended: Links added.
--- NOTE | 2024-08-21 16:16 | NUR ---
PT WAS ABLE TO AMBULATE W/A STEADY GAIT TO AND FROM THE RESTROOM TO HAVE A STOOL AND VOID.
--- NOTE | 2024-08-21 19:34 | NUR ---
REPORT ENDORSED TO JACKIE VELAZQUEZ RN
[2024-08-21] MEDS: PoTASSium chloRIDE 20MEQ ER 20 MEQ ERTAB PO PRN (21:13)
[2024-08-21] MEDS: ALBUMIN (HUMAN) 25% 100 ML IV ONE (21:24)
[2024-08-22] VITALS (11 sets, daily range): BP systolic 100–156; BP diastolic 52–80; PULSE 54–84; RESP 17–20; TEMP 97.1–98.4; O2SAT 95–100
--- NOTE | 2024-08-22 01:20 | NUR ---
ADMISSION: PT RECEIVED FROM ER VIA STRETCHER, NO FAMILY MEMBERS AT BEDSIDE. PT AWAKE ALERT X 3. PLACED TELE# 23 TO CHEST WALL, VOICES NO CHEST PAIN/DISCOMFORTS AT THE MOMENT. 18G IV .SL TO LEFT HAND, NO REDNESS, NO SWELLING, NO TENDERNESS NOTED. BILATERAL +3 EDEMA NOTED TO LE. BILATERAL SCDs PLACED. S/R UP X 2. BED ALARM IN PLACE. PT ORIENTED TO ROOM, SURROUNDINGS AND CALL MARTINEZ. ENCOURAGED TO USE CALL LIGHT FOR ASSISTANCE, AND NOT TO GET UP BY HIMSELF. PT VERBALIZES UNDERSTANDING.
--- NOTE | 2024-08-22 02:00 | NUR ---
NON-COMPLIANCE: BED ALARM GOING OFF, PT ATTEMPTING TO GET OUT OF BED TO TURN ON TV. PT ORIENTED TO ROOM, CALL MARTINEZ. BED ALARM IN PLACE, DOOR KEPT OPEN AND PT WITHIN VIEW OF NURSE'S STATION.
[2024-08-22] MEDS: levoTHYROxine 50 MCG TABLET PO SCH (06:14)
[2024-08-22 06:25] LABS: ALBUMIN 1.9 g/dL (3.5-5.0); BILIRUBIN,TOTAL 1.7 mg/dL (0.2-1.0); CREATININE 1.3 mg/dL (0.5-1.3); TOTAL PROTEIN, SERUM 4.5 g/dL (6.0-8.3)
[2024-08-22] MEDS: PoTASSium chloRIDE 20MEQ/100ML 100 ML IV PRN (06:40)
[2024-08-22 07:14] LABS: BASOPHILS # (AUTO) 0.02 K/uL (0.00-0.20); BASOPHILS % (AUTO) 0.5 % (0.0-5.0); EOSINOPHILS % (AUTO) 2.6 % (0.0-8.0); IMMATURE GRANULOCYTE ABSOLUTE 0.01 K/uL (0-1); LYMPHOCYTES % (AUTO) 25.2 % (21.0-51.0); MEAN CORPUSCULAR HEMOGLOBIN 35.8 pg (27.0-33.0); MEAN CORPUSCULAR VOLUME 108.4 fL (79-99); MONOCYTES # (AUTO) 0.4 K/uL (0.1-1.0); MONOCYTES % (AUTO) 10.3 % (3.0-13.0); NEUTROPHILS # (AUTO) 2.4 K/uL (1.8-7.7); NEUTROPHILS % (AUTO) 61.1 % (40.0-77.0); PLATELET COUNT (AUTO) 78 K/uL (130-400); RED CELL DISTRIBUTION WIDTH 14.7 % (11.0-15.5); WHITE BLOOD COUNT (AUTO) 3.9 K/uL (4.8-10.8)
[2024-08-22 07:50] LABS: HEMATOCRIT 20.6 % (42-54)
[2024-08-22] MEDS: PoTASSium chl 10% ELIXIR 20MEQ 20 MEQ/15 ML UDCUP PO PRN (08:23)
--- NOTE | 2024-08-22 09:00 | NUR ---
FALL PREVENTION/EDUCATION PATIENT EDUCATED TO NOT GET UP FROM BED WITHOUT NOTIFYING FOR ASSISTANCE. EDUCATED ON RISKS FOR FALL AND COMPLICATIONS AFTER IF FALL. PATIENT VOICED UNDERSTANDING. BED LOW IN POSITION, BED ALARM IN PLACE, CALL MARTINEZ WITHIN REACH, PERSONAL BELONGINGS WITHIN REACH. WILL CONTINUE TO MONITOR.
--- NOTE | 2024-08-22 12:09 | PN ---
[facility] PROGRESS NOTE Date Patient Seen: Aug 22, 2024 Time of Visit: 11:59 Supervising Physician: [Dr. Massey] Primary Care Physician: Eren Demarco MD Outpatient Specialists: [ ] Inpatient Consults: [ ] PROBLEM LIST: Acute hepatic encephalopathy, POA Hyperammonemia, POA Liver cirrhosis with ascities, POA s/p paracentesis on 07/25/2024 with 3.9L removed, negative culture Thrombocytopenia in liver cirrhosis Chronic cholecystitis with abdominal pain, pending abd U/S Chronic Macrocytic anemia, POA Acute kidney injury, POA Hypoalbuminemia, POA Morbid obesity, POA Hypertension, POA Ascites, POA PLAN: Order KUB Order Abd U/S to r/o acute cholecystitis in setting of chronic gallstones Continue lactulose Continue rifaxamin Continue rocephin, follow blood cultures Completed albumin Q6H Continue spironolactone 25mg BID, monitor K+ and creatinine Pending UA, blood culture to r/o infection Pending INR for meld score Tylenol for fever Monitor ammonia level Limit sedation Avoid nephrotoxic agents Renally dose all medications Strict I&O Treat fever aggressively Monitor temperature curve Bilateral SCDs Keep SBP less than 160 P.r.n. hydralazine and labetalol INTERVAL HISTORY: [Is a 59-year-old male with a history of liver cirrhosis who presents to the ED for evaluation of altered mental status. Per ED report patient's family states he had gone to visit family members for a couple of weeks and when he came back he was more altered than usual. He has a history of hyper ammonia anemia, unknown if he was compliant with his lactulose and rifaximin. His labs on admission reveal low platelets at 126, mildly elevated creatinine 1.6, hy poalbuminemia at one three and hyperammonemia and 118. He has been febrile overnight. Did receive a paracentesis on 07/25/2024 with 3.9L of fluid removed culture negative for infection at that time, he received a dose of Rocephin in the ED. has been receiving Tylenol.] 08/22 patient's hemoglobin dropped to 6.8 today from 8.0 yesterday. Has been having frequent bowel movements, but no melena or hematochezia per bedside nurse. Patient's ammonia levels have improved to 38. His mental status is also improved today. Patient has had persistently low serum despite potassium replacement and spironlactone. Will repeat CBC for monitoring. He has diffuse abdominal pain with deep palpation, not localized. No fever, nausea or vomiting. He did have a CT abdomen in April 2024 without acute findings. REVIEW OF SYSTEMS: Unable to complete ROS due to current mental state PHYSICAL EXAM: GENERAL: alert, awake and oriented X 3 HEENT: EOMI, Sclera non icteric, moist mucosa NECK: Supple, no JVD, trachea midline LUNGS: Diminished bibasilar area HEART: Regular rate and rhythm. Normal S1 and S2, without murmurs ABD: Large abdomen, diffuse tenderness with deep palpation, not localized to any quadrant, does not appear to have much ascitic fluid per exam EXT: No clubbing cyanosis 3+ pitting edema NEURO: Sleepy, unable to follow commands but will respond to name Vital Signs (last 8hr) Date Time Temp Pulse Resp B/P (MAP) Pulse Ox O2 Delivery O2 Flow Rate FiO2 08/22/24 07:08 97.9 75 18 128/78 97 Room Air 21 08/22/24 04:01 98.1 74 17 121/52 96 Room Air LABS: Hematology Labs: Test 08/22/24 07:11 08/20/24 18:13 Range/Units White Blood Count 3.9 L 4.8-10.8 K/uL Red Blood Count 1.90 L 4.50-6.20 MIL/uL Hemoglobin 6.8 *L 14.0-18.0 g/dL Hematocrit 20.6 *L 42-54 % Mean Corpuscular Volume 108.4 H 79-99 fL Mean Corpuscular Hemoglobin 35.8 H 27.0-33.0 pg Mean Corpuscular Hemoglobin Concent 33.0 32.0-36.0 g/dL Red Cell Distribution Width 14.7 11.0-15.5 % Platelet Count 78 L 130-400 K/uL Mean Platelet Volume 9.7 7.5-10.5 fL Immature Granulocyte % (Auto) 0.3 0-1 % Neutrophils (%) (Auto) 61.1 40.0-77.0 % Lymphocytes (%) (Auto) 25.2 21.0-51.0 % Monocytes (%) (Auto) 10.3 3.0-13.0 % Eosinophils (%) (Auto) 2.6 0.0-8.0 % Basophils (%) (Auto) 0.5 0.0-5.0 % Neutrophils # (Auto) 2.4 1.8-7.7 K/uL Lymphocytes # (Auto) 1.0 1.0-4.8 K/uL Monocytes # (Auto) 0.4 0.1-1.0 K/uL Eosinophils # (Auto) 0.10 0.00-0.70 K/uL Basophils # (Auto) 0.02 0.00-0.20 K/uL Absolute Immature Granulocyte (auto 0.01 0-1 K/uL Nucleated Red Blood Cells 0.0 0.0-0.19 % Red Blood Cell Morphology See comments White Cell Morphology Comment See comments Chemistry Labs: Test 08/22/24 11:37 08/22/24 05:50 08/21/24 06:54 08/20/24 18:13 Range/Units Whole Blood Glucose 106 70-110 MG/DL Sodium Level 148 H 136-145 mmol/L Potassium Level 3.0 *L 3.5-5.1 mmol/L Chloride Level 116 H 101-111 mmol/L Carbon Dioxide Level 26 21-32 mmol/L Blood Urea Nitrogen 13 7-18 mg/dL Creatinine 1.3 0.5-1.3 mg/dL Glomerular Filtration Rate Calc 63 >90 mL/min Random Glucose 99 70-105 mg/dL Total Calcium 7.8 L 8.5-10.1 mg/dL Total Bilirubin 1.7 H 0.2-1.0 mg/dL Aspartate Amino Transf (AST/SGOT) 33 10-37 U/L Alanine Aminotransferase (ALT/SGPT) 15 12-78 U/L Alkaline Phosphatase 94 50-136 U/L Total Protein 4.5 L 6.0-8.3 g/dL Albumin 1.9 L 3.5-5.0 g/dL Phosphorus Level 3.4 2.5-4.9 mg/dL Magnesium Level 1.60 L 1.80-2.40 mg/dL Ammonia 38 #H 11-32 umol/L Direct Bilirubin 0.5 H 0.0-0.3 mg/dL Coagulation Labs: Test 08/21/24 13:32 Range/Units Prothrombin Time 14.0 H 9.6-11.6 SEC Prothromb Time International Ratio 1.32 H 0.85-1.15 DIAGNOSTICS / RADIOLOGY RESULTS: [reviewed] PLAN NEURO: Minimize central acting medications as possible. Maintain fall precautions, adequate lighting during the day PULMONARY: Supplemental 02 as needed. Maintain aspiration precautions at all times CARDIOVASCULAR: Follow hemodynamics. Vital signs per facility protocol GI & NUTRITION: Continue with nutritional support. Continue stool softeners and laxatives as needed. KIDNEYS & ELECTROLYTES: Strict monitoring of intake, output and overall fluid balance. Avoid nephrotoxic medications to the extent possible. Medications to be dosed according to renal function. Monitor electrolytes and replace as needed ENDOCRINE: Maintain blood glucose between 100-180 at all times. Hypoglycemia protocol in place INFECTIOUS DISEASE: Trend temperature, WBC and procalcitonin level Follow cultures, deescalate antibiotics as soon as possible. Panculture if new onset fever ONCOLOGY/HEMATOLOGY/COAGULATION: Monitor for s/s of bleeding Monitor hemoglobin, coagulation studies as needed SKIN: Pressure ulcer prevention per facility protocol Specialty mattress ORTHO/REHAB: Continue PT/OT Prophylaxis: Continue GI and DVT prophylaxis Code Status: Full Resuscitation Disposition: TBD Other: Total patient care time exceeds 35 minutes excluding all procedures. LULY ZAYAS Aug 22, 2024 12:08
[2024-08-22 12:30] LABS: HEMATOCRIT 21.9 % (42-54)
[2024-08-22 14:25] LABS: APPEARANCE,URINE CLEAR (CLEAR); BILIRUBIN,URINE NEGATIVE (NEGATIVE); COLOR,URINE YELLOW (YELLOW); GLUCOSE, URINE (UA) NEGATIVE (NEGATIVE); KETONES,URINE NEGATIVE (NEGATIVE); LEUKOCYTE ESTERASE ,URINE NEGATIVE Leu/uL (NEGATIVE); NITRATE,URINE NEGATIVE (NEGATIVE); OCCULT BLOOD,URINE LARGE (NEGATIVE); PH,URINE 6.5 (5.0-8.0); PROTEIN,URINE 300 mg/dL (NEGATIVE); UROBILINOGEN,URINE 0.2 mg/dL (0.2-1.0)
[2024-08-22 14:30] LABS: ADD UA MICROSCOPIC YES
[2024-08-22 14:35] LABS: BACTERIA,URINE RARE /HPF (None Seen); RBC,URINE 51-100 /HPF (0-1); UNCLASSIFIED CRYSTAL 4 /HPF (None Seen); YEAST,URINE BUDDING FEW /HPF (None Seen)
--- NOTE | 2024-08-22 15:25 | HMCIMG ---
ABD 1VW REASON: R/O CONSTIPATION FINDINGS: Single image of the abdomen was obtained. There are mildly dilated air-filled loops of large and small bowel, nonspecific, most consistent with gastroenteritis or ileus. There is no evidence of constipation. IMPRESSION: 1. Nonspecific bowel gas pattern most consistent with ileus.
[2024-08-22] MEDS: MAGNESIUM 2GM PREMIX 50ML 50 ML IV PRN (18:03)
[2024-08-23] VITALS (8 sets, daily range): BP systolic 130–144; BP diastolic 70–80; PULSE 68–85; RESP 16–20; TEMP 97.6–98.9; O2SAT 100
[2024-08-23] MEDS: SIMETHICONE 80 MG TAB.CHEW PO SCH (08:22)
--- NOTE | 2024-08-23 10:46 | HMCIMG ---
US ABDOMINAL COMPLETE REASON: abdominal pain COMPARISON: None FINDINGS: There is a small irregular liver consistent with cirrhosis. There are no focal mass lesions. The liver is not enlarged.There are stones present within the gallbladder. Spleen is mildly enlarged. There is a small amount of ascites in both upper quadrants. Right kidney appears unremarkable. Left kidney was not well visualized. Common duct appears normal. Aorta and inferior vena cava appear normal. Visualized portions of the pancreas appear normal. The aorta was obscured. IMPRESSION: 1. Small irregular liver, splenomegaly and ascites consistent with cirrhosis. 2. Cholelithiasis without evidence of acute cholecystitis. 3. Otherwise unremarkable exam within limits as described.
--- NOTE | 2024-08-23 19:51 | PN ---
[facility] PROGRESS NOTE Date Patient Seen: Aug 23, 2024 Time of Visit: 19:40 Supervising Physician: [Dr. Massey] Primary Care Physician: Eren Demarco MD Outpatient Specialists: [ ] Inpatient Consults: [ ] PROBLEM LIST: Acute hepatic encephalopathy, improvedPOA Hyperammonemia, improved POA Liver cirrhosis with ascities, MELD score 17 on admission s/p paracentesis on 07/25/2024 with 3.9L removed, negative culture Thrombocytopenia in liver cirrhosis Chronic cholecystitis without acute cholecystitis Chronic Macrocytic anemia, POA Acute kidney injury, POA Hypoalbuminemia, POA Morbid obesity, POA Hypertension, POA Ascites, POA PLAN: Increase PO lasix to 40mg daily Continue lactulose Continue rifaxamin Continue rocephin, follow blood cultures Completed albumin Q6H Continue spironolactone 25mg BID, monitor K+ and creatinine Blood and urine cultures negative Tylenol for fever Monitor ammonia level Limit sedation Avoid nephrotoxic agents Renally dose all medications Strict I&O Treat fever aggressively Monitor temperature curve Bilateral SCDs Keep SBP less than 160 P.r.n. hydralazine and labetalol INTERVAL HISTORY: [Is a 59-year-old male with a history of liver cirrhosis who presents to the ED for evaluation of altered mental status. Per ED report patient's family states he had gone to visit family members for a couple of weeks and when he came back he was more altered than usual. He has a history of hyper ammonia anemia, unknown if he was compliant with his lactulose and rifaximin. His labs on admi ssion reveal low platelets at 126, mildly elevated creatinine 1.6, hypoalbuminemia at one three and hyperammonemia and 118. He has been febrile overnight. Did receive a paracentesis on 07/25/2024 with 3.9L of fluid removed culture negative for infection at that time, he received a dose of Rocephin in the ED. has been receiving Tylenol.] 08/22 patient's hemoglobin dropped to 6.8 today from 8.0 yesterday. Has been having frequent bowel movements, but no melena or hematochezia per bedside nurse. Patient's ammonia levels have improved to 38. His mental status is also improved today. Patient has had persistently low serum despite potassium replacement and spironlactone. Will repeat CBC for monitoring. He has diffuse abdominal pain with deep palpation, not localized. No fever, nausea or vomiting. He did have a CT abdomen in April 2024 without acute findings. 08/23 Patient is evaluated at bedside. He is not feeling so well today. Family states this is consistent with his character when he has elevated ammonia levels. His KUB revealed gas pattern consistent with illeus. Abd U/S is without evidence of acute cholecystitis. He reports a normal bowel movement today. He continues on lasix and spironolactone. REVIEW OF SYSTEMS: Unable to complete ROS due to current mental state PHYSICAL EXAM: GENERAL: alert, awake and oriented X 3 HEENT: EOMI, Sclera non icteric, moist mucosa NECK: Supple, no JVD, trachea midline LUNGS: Diminished bibasilar area HEART: Regular rate and rhythm. Normal S1 and S2, without murmurs ABD: Large abdomen, diffuse tenderness with deep palpation, not localized to any quadrant, does not appear to have much ascitic fluid per exam EXT: No clubbing cyanosis 3+ pitting edema NEURO: Sleepy, unable to follow commands but will respond to name Vital Signs (last 8hr) Date Time Temp Pulse Resp B/P (MAP) Pulse Ox O2 Delivery O2 Flow Rate FiO2 08/23/24 14:25 99.0 68 20 132/70 98 Room Air 21 LABS: Hematology Labs: Test 08/22/24 12:15 08/22/24 07:11 Range/Units Hemoglobin 7.5 L 14.0-18.0 g/dL Hematocrit 21.9 L 42-54 % White Blood Count 3.9 L 4.8-10.8 K/uL Red Blood Count 1.90 L 4.50-6.20 MIL/uL Mean Corpuscular Volume 108.4 H 79-99 fL Mean Corpuscular Hemoglobin 35.8 H 27.0-33.0 pg Mean Corpuscular Hemoglobin Concent 33.0 32.0-36.0 g/dL Red Cell Distribution Width 14.7 11.0-15.5 % Platelet Count 78 L 130-400 K/uL Mean Platelet Volume 9.7 7.5-10.5 fL Immature Granulocyte % (Auto) 0.3 0-1 % Neutrophils (%) (Auto) 61.1 40.0-77.0 % Lymphocytes (%) (Auto) 25.2 21.0-51.0 % Monocytes (%) (Auto) 10.3 3.0-13.0 % Eosinophils (%) (Auto) 2.6 0.0-8.0 % Basophils (%) (Auto) 0.5 0.0-5.0 % Neutrophils # (Auto) 2.4 1.8-7.7 K/uL Lymphocytes # (Auto) 1.0 1.0-4.8 K/uL Monocytes # (Auto) 0.4 0.1-1.0 K/uL Eosinophils # (Auto) 0.10 0.00-0.70 K/uL Basophils # (Auto) 0.02 0.00-0.20 K/uL Absolute Immature Granulocyte (auto 0.01 0-1 K/uL Nucleated Red Blood Cells 0.0 0.0-0.19 % Red Blood Cell Morphology See comments Chemistry Labs: Test 08/23/24 15:41 08/23/24 04:56 08/22/24 05:50 Range/Units Whole Blood Glucose 101 70-110 MG/DL Potassium Level 4.2 3.5-5.1 mmol/L Sodium Level 148 H 136-145 mmol/L Chloride Level 116 H 101-111 mmol/L Carbon Dioxide Level 26 21-32 mmol/L Blood Urea Nitrogen 13 7-18 mg/dL Creatinine 1.3 0.5-1.3 mg/dL Glomerular Filtration Rate Calc 63 >90 mL/min Random Glucose 99 70-105 mg/dL Total Calcium 7.8 L 8.5-10.1 mg/dL Total Bilirubin 1.7 H 0.2-1.0 mg/dL Aspartate Amino Transf (AST/SGOT) 33 10-37 U/L Alanine Aminotransferase (ALT/SGPT) 15 12-78 U/L Alkaline Phosphatase 94 50-136 U/L Total Protein 4.5 L 6.0-8.3 g/dL Albumin 1.9 L 3.5-5.0 g/dL DIAGNOSTICS / RADIOLOGY RESULTS: US ABDOMINAL COMPLETE REASON: abdominal pain COMPARISON: None FINDINGS: There is a small irregular liver consistent with cirrhosis. There are no focal mass lesions. The liver is not enlarged.There are stones present within the gallbladder. Spleen is mildly enlarged. There is a small amount of ascites in both upper quadrants. Right kidney appears unremarkable. Left kidney was not well visualized. Common duct appears normal. Aorta and inferior vena cava appear normal. Visualized portions of the pancreas appear normal. The aorta was obscured. IMPRESSION: 1. Small irregular liver, splenomegaly and ascites consistent with cirrhosis. 2. Cholelithiasis without evidence of acute cholecystitis. 3. Otherwise unremarkable exam within limits as described. ABD 1VW REASON: R/O CONSTIPATION FINDINGS: Single image of the abdomen was obtained. There are mildly dilated air-filled loops of large and small bowel, nonspecific, most consistent with gastroenteritis or ileus. There is no evidence of constipation. IMPRESSION: 1. Nonspecific bowel gas pattern most consistent with ileus. PLAN NEURO: Minimize central acting medications as possible. Maintain fall precautions, adequate lighting during the day PULMONARY: Supplemental 02 as needed. Maintain aspiration precautions at all times CARDIOVASCULAR: Follow hemodynamics. Vital signs per facility protocol GI & NUTRITION: Continue with nutritional support. Continue stool softeners and laxatives as needed. KIDNEYS & ELECTROLYTES: Strict monitoring of intake, output and overall fluid balance. Avoid nephrotoxic medications to the extent possible. Medications to be dosed according to renal function. Monitor electrolytes and replace as needed ENDOCRINE: Maintain blood glucose between 100-180 at all times. Hypoglycemia protocol in place INFECTIOUS DISEASE: Trend temperature, WBC and procalcitonin level Follow cultures, deescalate antibiotics as soon as possible. Panculture if new onset fever ONCOLOGY/HEMATOLOGY/COAGULATION: Monitor for s/s of bleeding Monitor hemoglobin, coagulation studies as needed SKIN: Pressure ulcer prevention per facility protocol Specialty mattress ORTHO/REHAB: Continue PT/OT Prophylaxis: Continue GI and DVT prophylaxis Code Status: Full Resuscitation Disposition: TBD Other: Total patient care time exceeds 47 minutes excluding all procedures. LULY ZAYAS Aug 23, 2024 19:51
[2024-08-24 03:24] VITALS: BP 117/69; PULSE 79; RESP 18; TEMP 98.4
[2024-08-24 03:34] LABS: BASOPHILS # (AUTO) 0.02 K/uL (0.00-0.20); BASOPHILS % (AUTO) 0.5 % (0.0-5.0); EOSINOPHILS % (AUTO) 2.3 % (0.0-8.0); IMMATURE GRANULOCYTE ABSOLUTE 0.01 K/uL (0-1); LYMPHOCYTES # (AUTO) 1.1 K/uL (1.0-4.8); LYMPHOCYTES % (AUTO) 24.8 % (21.0-51.0); MEAN CORPUSCULAR HEMOGLOBIN 35.7 pg (27.0-33.0); MEAN CORPUSCULAR HGB CONC 34.1 g/dL (32.0-36.0); MEAN CORPUSCULAR VOLUME 104.5 fL (79-99); MONOCYTES # (AUTO) 0.4 K/uL (0.1-1.0); MONOCYTES % (AUTO) 9.7 % (3.0-13.0); NEUTROPHILS # (AUTO) 2.7 K/uL (1.8-7.7); NEUTROPHILS % (AUTO) 62.5 % (40.0-77.0); PLATELET COUNT (AUTO) 94 K/uL (130-400); RED BLOOD CELL COUNT(AUTO) 1.99 MIL/uL (4.50-6.20); RED CELL DISTRIBUTION WIDTH 14.6 % (11.0-15.5); WHITE BLOOD COUNT (AUTO) 4.4 K/uL (4.8-10.8)
[2024-08-24 03:44] LABS: ALBUMIN 1.6 g/dL (3.5-5.0); BILIRUBIN,TOTAL 1.2 mg/dL (0.2-1.0); CREATININE 1.2 mg/dL (0.5-1.3); POTASSIUM 3.4 mmol/L (3.5-5.1); TOTAL PROTEIN, SERUM 4.6 g/dL (6.0-8.3)
[2024-08-24 03:46] LABS: HEMATOCRIT 20.8 % (42-54)
[2024-08-24 08:00] VITALS: BP 131/77; PULSE 68; RESP 17; TEMP 98.4
[2024-08-24 08:30] VITALS: O2SAT 100
[2024-08-24] MEDS: furoSEMIDE 40 MG TABLET PO SCH (10:53)
[2024-08-24 11:12] LABS: HEMATOCRIT 22.8 % (42-54)
[2024-08-24 12:00] VITALS: BP 134/82; PULSE 80; RESP 16; TEMP 98.2
--- NOTE | 2024-08-24 14:47 | NUR ---
CONSUELO NOTE: [facility] PENDING APPROVAL CONSUELO DC GEAR NICKER OBTAINED CONSENT ANCA FOR [facility] FROM PATIENT. CONSUELO DC GEAR NICKER SENT ORDER, CLINICALS, PASRR TO [facility] VIA SECURE FAX AND EMAIL. CONSUELO SPOKE TO VONDA MADE AWARE OF NEW REFERRAL, DCP ONCE PT HAS APPROVAL VIA VAN, REP WILL COME EVALUATE PT. PT PENDING APPROVAL AND ACCEPTANCE. PRIMARY NURSE YOCASTA MADE AWARE. CM TO CONTINUE TO FOLLOW UP. Addendum: 08/24/24 at 1503 by WALDEMAR CALLE LVN Amended: Links added.
[2024-08-24 16:00] VITALS: BP 132/75; PULSE 73; RESP 18; TEMP 97.9
[2024-08-24 17:09] LABS: APPEARANCE,URINE CLEAR (CLEAR); BILIRUBIN,URINE NEGATIVE (NEGATIVE); COLOR,URINE LIGHT-YELLOW (YELLOW); GLUCOSE, URINE (UA) NEGATIVE (NEGATIVE); KETONES,URINE NEGATIVE (NEGATIVE); LEUKOCYTE ESTERASE ,URINE NEGATIVE Leu/uL (NEGATIVE); NITRATE,URINE NEGATIVE (NEGATIVE); OCCULT BLOOD,URINE LARGE (NEGATIVE); PROTEIN,URINE 100 mg/dL (NEGATIVE); UROBILINOGEN,URINE 0.2 mg/dL (0.2-1.0)
[2024-08-24 17:12] LABS: ADD UA MICROSCOPIC YES
[2024-08-24 17:16] LABS: MUCUS,URINE RARE LPF (None Seen); RBC,URINE 51-100 /HPF (0-1); SQUAMOUS EPITHELIAL CELL,UR RARE /HPF (0-2); YEAST,URINE BUDDING RARE /HPF (None Seen)
[2024-08-24 20:00] VITALS: BP 126/59; PULSE 80; RESP 19; TEMP 98.5
--- NOTE | 2024-08-24 20:14 | PN ---
[facility] PROGRESS NOTE Date Patient Seen: Aug 24, 2024 Time of Visit: 20:14 Supervising Physician: [Dr. Massey] Primary Care Physician: Eren Demarco MD Outpatient Specialists: [ ] Inpatient Consults: [ ] PROBLEM LIST: Acute hepatic encephalopathy, improvedPOA Hyperammonemia, improved POA Liver cirrhosis with ascities, MELD score 17 on admission s/p paracentesis on 07/25/2024 with 3.9L removed, negative culture Thrombocytopenia in liver cirrhosis Chronic cholecystitis without acute cholecystitis Chronic Macrocytic anemia, POA Acute kidney injury, POA Hypoalbuminemia, POA Morbid obesity, POA Hypertension, POA Ascites, POA PLAN: Repeat UA Increase PO lasix to 40mg daily Continue lactulose Continue rifaxamin Continue rocephin, follow blood cultures Completed albumin Q6H Continue spironolactone 25mg BID, monitor K+ and creatinine Blood and urine cultures negative Tylenol for fever Monitor ammonia level Limit sedation Avoid nephrotoxic agents Renally dose all medications Strict I&O Treat fever aggressively Monitor temperature curve Bilateral SCDs Keep SBP less than 160 P.r.n. hydralazine and labetalol CM for DCP INTERVAL HISTORY: [Is a 59-year-old male with a history of liver cirrhosis who presents to the ED for evaluation of altered mental status. Per ED report patient's family states he had gone to visit family members for a couple of weeks and when he came back he was more altered than usual. He has a history of hyper ammonia anemia, unknown if he was compliant with his lactulose and rifaximin. His labs on admission reveal low platelets at 126, mildly elevated creatinine 1.6, hypoalbuminemia at one three and hyperammonemia and 118. He has been febrile overnight. Did receive a paracentesis on 07/25/2024 with 3.9L of fluid removed culture negative for infection at that time, he received a dose of Rocephin in the ED. has been receiving Tylenol.] 08/22 patient's hemoglobin dropped to 6.8 today from 8.0 yesterday. Has been having frequent bowel movements, but no melena or hematochezia per bedside nurse. Patient's ammonia levels have improved to 38. His mental status is also improved today. Patient has had persistently low serum despite potassium replacement and spironlactone. Will repeat CBC for monitoring. He has diffuse abdominal pain with deep palpation, not localized. No fever, nausea or vomiting. He did have a CT abdomen in April 2024 without acute findings. 08/23 Patient is evaluated at bedside. He is not feeling so well today. Family states this is consistent with his character when he has elevated ammonia levels. His KUB revealed gas pattern consistent with illeus. Abd U/S is without evidence of acute cholecystitis. He reports a normal bowel movement today. He continues on lasix and spironolactone. 08/24 Patient appears weak and somewhat altered with grossly alert status. He states he does not feel well. Ammonia levels have returned to within normal limits. No signs or symptoms of infection. UA was negative for leukocytosis on admission. WBC normal, no fever. Blood and urine cultures are negative. Abdomen is mildly distended, does not appear enough for paracentesis. Patient was considered for discharge today but does not feel well enough to return home. No family at bedside. Will consult case management for placement options. REVIEW OF SYSTEMS: Unable to complete ROS due to current mental state PHYSICAL EXAM: GENERAL: alert, awake and oriented X 3 HEENT: EOMI, Sclera non icteric, moist mucosa NECK: Supple, no JVD, trachea midline LUNGS: Diminished bibasilar area HEART: Regular rate and rhythm. Normal S1 and S2, without murmurs ABD: Large abdomen, diffuse tenderness with deep palpation, not localized to any quadrant, does not appear to have much ascitic fluid per exam EXT: No clubbing cyanosis 3+ pitting edema NEURO: Sleepy, unable to follow commands but will respond to name Vital Signs (last 8hr) Date Time Temp Pulse Resp B/P (MAP) Pulse Ox O2 Delivery O2 Flow Rate FiO2 08/24/24 16:00 97.9 73 18 132/75 100 Room Air 0.0 LABS: Hematology Labs: Test 08/24/24 11:00 08/24/24 02:56 Range/Units Hemoglobin 7.9 L 14.0-18.0 g/dL Hematocrit 22.8 L 42-54 % White Blood Count 4.4 L 4.8-10.8 K/uL Red Blood Count 1.99 L 4.50-6.20 MIL/uL Mean Corpuscular Volume 104.5 H 79-99 fL Mean Corpuscular Hemoglobin 35.7 H 27.0-33.0 pg Mean Corpuscular Hemoglobin Concent 34.1 32.0-36.0 g/dL Red Cell Distribution Width 14.6 11.0-15.5 % Platelet Count 94 L 130-400 K/uL Mean Platelet Volume 9.5 7.5-10.5 fL Immature Granulocyte % (Auto) 0.2 0-1 % Neutrophils (%) (Auto) 62.5 40.0-77.0 % Lymphocytes (%) (Auto) 24.8 21.0-51.0 % Monocytes (%) (Auto) 9.7 3.0-13.0 % Eosinophils (%) (Auto) 2.3 0.0-8.0 % Basophils (%) (Auto) 0.5 0.0-5.0 % Neutrophils # (Auto) 2.7 1.8-7.7 K/uL Lymphocytes # (Auto) 1.1 1.0-4.8 K/uL Monocytes # (Auto) 0.4 0.1-1.0 K/uL Eosinophils # (Auto) 0.10 0.00-0.70 K/uL Basophils # (Auto) 0.02 0.00-0.20 K/uL Absolute Immature Granulocyte (auto 0.01 0-1 K/uL Nucleated Red Blood Cells 0.0 0.0-0.19 % Chemistry Labs: Test 08/24/24 16:34 08/24/24 02:56 Range/Units Whole Blood Glucose 100 70-110 MG/DL Sodium Level 147 H 136-145 mmol/L Potassium Level 3.4 L 3.5-5.1 mmol/L Chloride Level 115 H 101-111 mmol/L Carbon Dioxide Level 26 21-32 mmol/L Blood Urea Nitrogen 9 7-18 mg/dL Creatinine 1.2 0.5-1.3 mg/dL Glomerular Filtration Rate Calc 69 >90 mL/min Random Glucose 98 70-105 mg/dL Total Calcium 7.7 L 8.5-10.1 mg/dL Total Bilirubin 1.2 H 0.2-1.0 mg/dL Aspartate Amino Transf (AST/SGOT) 38 H 10-37 U/L Alanine Aminotransferase (ALT/SGPT) 15 12-78 U/L Alkaline Phosphatase 109 50-136 U/L Ammonia 43 H 11-32 umol/L Total Protein 4.6 L 6.0-8.3 g/dL Albumin 1.6 L 3.5-5.0 g/dL DIAGNOSTICS / RADIOLOGY RESULTS: [Reviewed] PLAN NEURO: Minimize central acting medications as possible. Maintain fall precautions, adequate lighting during the day PULMONARY: Supplemental 02 as needed. Maintain aspiration precautions at all times CARDIOVASCULAR: Follow hemodynamics. Vital signs per facility protocol GI & NUTRITION: Continue with nutritional support. Continue stool softeners and laxatives as needed. KIDNEYS & ELECTROLYTES: Strict monitoring of intake, output and overall fluid balance. Avoid nephrotoxic medications to the extent possible. Medications to be dosed according to renal function. Monitor electrolytes and replace as needed ENDOCRINE: Maintain blood glucose between 100-180 at all times. Hypoglycemia protocol in place INFECTIOUS DISEASE: Trend temperature, WBC and procalcitonin level Follow cultures, deescalate antibiotics as soon as possible. Panculture if new onset fever ONCOLOGY/HEMATOLOGY/COAGULATION: Monitor for s/s of bleeding Monitor hemoglobin, coagulation studies as needed SKIN: Pressure ulcer prevention per facility protocol Specialty mattress ORTHO/REHAB: Continue PT/OT Prophylaxis: Continue GI and DVT prophylaxis Code Status: Full Resuscitation Disposition: TBD Other: Total patient care time exceeds 47 minutes excluding all procedures. LULY ZAYAS Aug 24, 2024 20:14
[2024-08-25] VITALS: BP 117/66; PULSE 78; RESP 18; TEMP 98.2
[2024-08-25 04:00] VITALS: BP 119/73; PULSE 82; RESP 18; TEMP 97.9
[2024-08-25 08:00] VITALS: BP 120/66; PULSE 76; RESP 18; TEMP 97.9; O2SAT 99
[2024-08-25 11:50] VITALS: BP 126/72; PULSE 77; RESP 16; TEMP 98.1
[2024-08-25 16:00] VITALS: BP 117/69; PULSE 82; RESP 18; TEMP 98
--- NOTE | 2024-08-25 17:39 | DS ---
[facility] DISCHARGE SUMMARY Date Patient Seen: Aug 25, 2024 Time of Visit: 17:39 Supervising Physician: [Dr. Stephens] Primary Care Physician: Eren Demarco MD Outpatient Specialists: [ ] Inpatient Consults: [ ] PROBLEM LIST: Acute hepatic encephalopathy, improvedPOA Hyperammonemia, improved POA Liver cirrhosis with ascities, MELD score 17 on admission s/p paracentesis on 07/25/2024 with 3.9L removed, negative culture Thrombocytopenia in liver cirrhosis Chronic cholecystitis without acute cholecystitis Chronic Macrocytic anemia, POA Acute kidney injury, POA Hypoalbuminemia, POA Morbid obesity, POA Hypertension, POA Ascites, POA PLAN: Continue current medication regimen F/U with PCP upon discharge Keep appointments with GI HOSPITAL COURSE: HPI (per admitting provider) 59-year-old male with past medical history of liver cirrhosis, morbid obesity, hypertension, chronic ascites, chronic anemia who presented to ED by private vehicle with complaint of alteration in mental status and found to have elevated ammonia level. Per report patient visited her sister earlier today however patient was found to be confused than usual. Sister thought that this could be related to his ammonia level being elevated. She then decided to bring patient to ER for further medical evaluation. In ED stat CBC was done and showed no acute infection however there is chronic anemia, his CMP is significant for creatinine level of 1.6 with normal electrolytes level, his ammonia level was 118 and albumin level of 1.3. Patient was initiated on lactulose and rifaxamin with improved ammonia levels. He had regular and frequent bowel movements. His UA was negative for infection. WBC remained within normal limits, no s/s of infection. Patient's mentation status improved with treatment. Patient did complain of generalized abdominal cramping, abdominal ultrasound showed cholelithiasis without cholecystitis. He was able to tolerate diet. No nausea, vomiting, fever or diarrhea. He was able to ambulate well on his own prior to discharge. Did not qualify for SNF. Patient states he lives with his sister and she is able to help him with his activities of daily living. The patient was treated for the following problems: ACTIVE PROBLEM LIST FOR THE HOSPITALIZATION: Acute hepatic encephalopathy, improved POA Hyperammonemia, improved POA Liver cirrhosis with ascities, MELD score 17 on admission s/p paracentesis on 07/25/2024 with 3.9L removed, negative culture Thrombocytopenia in liver cirrhosis Chronic cholecystitis without acute cholecystitis Chronic Macrocytic anemia, POA Acute kidney injury, POA Hypoalbuminemia, POA Morbid obesity, POA Hypertension, POA Ascites, POA CHRONIC PROBLEMS: continue previous management per PCP unless otherwise indicated DISCHARGE MEDICATIONS: Continue all current medications as previously prescribed. Pt hemodynamically stable and afebrile at time of discharge. PCP notified of patients admission, hospital course and discharge. Continued Medications: Furosemide (Lasix 20Mg Tab) 20 Mg Tablet 20 MG PO DAILY, #30 TAB 0 Refills Lactulose (Lactulose) 20 Gram/30 Ml Solution 20 GM PO QID for HEPATIC ENCEPHALOPATHY for 30 Days, #1 BOTTLE 1 Refill Take 30 mL orally 4 times a day Levothyroxine Sodium (Levothyroxine) 25 Mcg Capsule 50 MCG PO ACBKFST, #30 CAP GIVE ON EMPTY STOMACH Pantoprazole Sodium (Protonix) 40 Mg Ectab 40 MG PO DAILY for 30 Days, #30 TAB.EC Rifaximin (Xifaxan) 550 Mg Tablet 550 MG PO Q12H, #60 TAB 0 Refills PHYSICAL EXAM: GENERAL: alert, awake and oriented X 3 HEENT: EOMI, Sclera non icteric, moist mucosa NECK: Supple, no JVD, trachea midline LUNGS: Diminished bibasilar area HEART: Regular rate and rhythm. Normal S1 and S2, without murmurs ABD: Large abdomen, does not appear to have much ascitic fluid per exam EXT: No clubbing cyanosis 3+ pitting edema NEURO: Sleepy, unable to follow commands but will respond to name FOLLOW-UP: Follow-up with PCP in 2-3 days for reevaluation. Continue current medication as prescribed. Keep appointment with GI outpatient as scheduled. RECOMMENDATIONS: See Discharge Instructions This case was seen and discussed with my supervising physician. More than 30 minutes spent on discharge process, including evaluation of the patient, discussion with nursing staff, medication reconciliation and follow-up appo intLULY Forbes Aug 25, 2024 17:39
--- NOTE | 2024-08-25 18:10 | NUR ---
DC INSTRUCTION PROVIDED TO PATIENT . PATIENT VERBALIZED UNDERSTANDING
== END 2024-08-25 18:00 | disposition home or self-care (01) | DRG 442 ==
LOC: EDH 17:40 → OBSVTOIN 20:49 → EDHIP 20:49 → 4AH 08-22 01:01
PROVIDERS: ADMIT Internal Medicine; ATTEND Internal Medicine
DX: K76.82 Hepatic encephalopathy (principal); E72.20 Disorder of urea cycle metabolism, unspecified; K56.7 Ileus, unspecified; N17.9 Acute kidney failure, unspecified; R18.8 Other ascites; D53.9 Nutritional anemia, unspecified; I10 Essential (primary) hypertension; K74.60 Unspecified cirrhosis of liver; E66.01 Morbid (severe) obesity due to excess calories; E88.09 Other disorders of plasma-protein metabolism, not elsewhere classified; D69.6 Thrombocytopenia, unspecified; K81.1 Chronic cholecystitis; Z68.35 Body mass index [BMI] 35.0-35.9, adult
CPT/HCPCS: 36415; 71045; 74018; 76700; 80048; 80053; 80076; 81001; 82140; 82948; 83735; 84100; 84132; 85014; 85018; 85025; 85610; 86850; 86900; 86901; 86923; 87040; 87086; 96365; 99285; G0378; J0696; J3475; J3480; J7030; P9047; A4600

== ENCOUNTER 2024-09-11 14:26 | Emergency (ER) | payer OTHER ==
[~2024-09-11] VITALS: Ht 162.6 cm; Wt 86.2 kg
[2024-09-11 14:31] VITALS: BP 143/76; PULSE 92; RESP 16; TEMP 100.8
--- NOTE | 2024-09-11 15:35 | ERN ---
General Chief Complaint: Abdominal Pain Stated Complaint: CHILLS, N/V, ABD CRAMPING Time Seen by MD: 14:31 History of Present Illness Initial Comments 59-year-old male presents to the ED for evaluation of abdominal pain onset 1 day ago. Patient reports nausea, vomiting, chills, but is any other associated symptoms at this time. Patient believes he might have possible elevated ammonia levels. Allergies: Coded Allergies: No Known Allergies (Unverified Allergy, Unknown, 03/24/22) Home Meds Active Scripts Pantoprazole Sodium (Protonix) 40 Mg Ectab, 40 MG PO DAILY for 30 Days, #30 TAB.EC Prov:SRIVASTAVALOC Britni YUSUFYARITZA 07/28/24 Rifaximin (Xifaxan) 550 Mg Tablet, 550 MG PO Q12H, #60 TAB 0 Refills Prov:ATIFLOC Britni YUSUFYARITZA 07/28/24 Furosemide (Lasix 20Mg Tab) 20 Mg Tablet, 20 MG PO DAILY, #30 TAB 0 Refills Prov:ATIFLOC Britni YUSUFYARITZA 07/28/24 Levothyroxine Sodium (Levothyroxine) 25 Mcg Capsule, 50 MCG PO ACBKFST, #30 CAP GIVE ON EMPTY STOMACH Prov:SRIVASTAVALOC Britni YUSUFNP 07/28/24 Lactulose (Lactulose) 20 Gram/30 Ml Solution, 20 GM PO QID for HEPATIC ENCEPHALOPATHY for 30 Days, #1 BOTTLE 1 Refill Take 30 mL orally 4 times a day Prov:LOC SRIVASTAVA Britni YUSUFYARITZA 07/28/24 Past Medical History Past Medical History: Hypertension, Liver Disease Medical History Other: RENAL INUSUFFICIENCY, THYROID DISEASE, Past Surgical History: Other Surgical History Other: UMBILICAL HERNIA REPAIR Social History Social History: Lives with family, Other ROS Dictation Constitutional: Negative for fever,chills, and weight loss Eyes: Negative for injury, pain,redness, and discharge ENT: Negative for injury,pain or swelling Cardiovascular: Negative for chest pain, palpitations, and edema Respiratory: Negative for shortness of breath, cough, and wheezing, Abdomen/GI: Positive for abdominal pain, nausea, vomiting, Negative for diarrhea, and constipation Back: Negative for injury and pain : Negative for injury, bleeding and discharge MS/Extremity: Negative for injury and deformity Skin: Negative for rash, and discoloration Neuro: Negative for headache, weakness, numbness, tingling, and seizure Psych: Negative for suicide ideation, homicidal ideation, and hallucinations Physical Exam Physical Exam Dictation General: awake, alert, patient appears uncomfortable Head/Face: Normocephalic, atraumatic Eyes: PERRL, EOMI, vision at baseline ENT: oral cavity clear, TMs clear, no signs of infection Neck: Trachea midline, supple, no nuchal rigidity Cardiovascular: RRR, normal S1/S2, No MRGs, no JVD Respiratory: CTAB, no respiratory distress, No rales or wheezes Abdomen: Soft, mild generalized tenderness, non-distended, normal bowel sounds, no guarding or rebound. Skin: Warm, dry, normal turgor, no rash MS/Extremity: Pulses equal, no cyanosis, neurovascular intact, FROM Neuro: COAx4, GCS 15, strength 5/5, CN 2-12 intact, normal cerebellar exam, normal gait, Psych: Normal behavior, mood, and affect normal Results Laboratory and Microbiology Lab and Micro Result Laboratory Tests Test 09/11/24 16:47 09/11/24 18:00 Sodium Level 142 mmol/L (136-145) Potassium Level 3.9 mmol/L (3.5-5.1) Chloride Level 110 mmol/L (101-111) Carbon Dioxide Level 26 mmol/L (21-32) Blood Urea Nitrogen 17 mg/dL (7-18) Creatinine 1.5 mg/dL (0.5-1.3) H Glomerular Filtration Rate Calc 53 mL/min (>90) Random Glucose 93 mg/dL (70-105) Total Calcium 7.9 mg/dL (8.5-10.1) L Ammonia 66 umol/L (11-32) H White Blood Count 2.4 K/uL (4.8-10.8) L Red Blood Count 2.86 MIL/uL (4.50-6.20) L Hemoglobin 10.1 g/dL (14.0-18.0) L Hematocrit 29.3 % (42-54) L Mean Corpuscular Volume 102.4 fL (79-99) H Mean Corpuscular Hemoglobin 35.3 pg (27.0-33.0) H Mean Corpuscular Hemoglobin Concent 34.5 g/dL (32.0-36.0) Red Cell Distribution Width 14.6 % (11.0-15.5) Platelet Count 94 K/uL (130-400) L Mean Platelet Volume 9.4 fL (7.5-10.5) Immature Granulocyte % (Auto) 0.4 % (0-1) Neutrophils (%) (Auto) 62.8 % (40.0-77.0) Lymphocytes (%) (Auto) 17.6 % (21.0-51.0) L Monocytes (%) (Auto) 17.6 % (3.0-13.0) H Eosinophils (%) (Auto) 0.8 % (0.0-8.0) Basophils (%) (Auto) 0.8 % (0.0-5.0) Neutrophils # (Auto) 1.5 K/uL (1.8-7.7) L Lymphocytes # (Auto) 0.4 K/uL (1.0-4.8) L Monocytes # (Auto) 0.4 K/uL (0.1-1.0) Eosinophils # (Auto) 0.02 K/uL (0.00-0.70) Basophils # (Auto) 0.02 K/uL (0.00-0.20) Absolute Immature Granulocyte (auto 0.01 K/uL (0-1) Segmented Neutrophils % 70 % (40-70) Band Neutrophils % 2 % (0-2) Lymphocytes % (Manual) 21 % (22-44) L Monocytes % (Manual) 3 % (2-9) Eosinophils % (Manual) 2 % (1-6) Nucleated Red Blood Cells 0.0 % (0.0-0.19) Differential Comment MANUAL DIFFERENTIAL Reactive Lymphocytes 2 % (0-0) H White Cell Morphology Comment Platelet Morphology Comment DECREASED Red Blood Cell Morphology ANISO 1+ Labs Reviewed?: Yes MDM MDM: Differential diagnosis: Abdominal pain, gastroenteritis, vomiting Previous outside records reviewed: Old ER visits. Need for hospitalization: Patient does not meet criteria for hospitalization. Need for emergency major/minor surgery: No Patient's prior external medical records from other ER visits were reviewed by me as indicated. Prior testing and results from previous visits were reviewed. Prior tests were taken into account with medical decision making and resource utilization, independent historian/historians were used to obtain complete medical history. I independently interpreted the test that were performed, results were reviewed by me and considered findings on radiology if ordered. Medical management and examination interpretation discussions were had by me with other qualified healthcare professionals as indicated for the patient's care. 1900- Patient care is being transferred to Dr. Arcos at shift change ED Course Orders Procedure Category Date Status Time Basic Metabolic Panel LAB 09/11/24 Complete 14:47 Ammonia LAB 09/11/24 Complete 14:47 Covid Rna Naat LAB 09/11/24 Logged 14:47 Rapid (Group A Strep) LAB 09/11/24 Logged 14:47 Influenza Type A & B, LAB 09/11/24 Logged Rapid 14:47 Chest 1vw RAD 09/11/24 Resulted 15:41 Cbc With Differential LAB 09/11/24 Complete 17:25 Manual Differential LAB 09/11/24 Complete 18:00 Ct Abdomen/Pelvis W/O CT 09/11/24 Resulted Contrast 18:33 Blood Cult SABIHA 09/11/24 Logged 19:56 Urinalysis Profile LAB 09/11/24 Logged 19:56 Vital Signs Date Time Temp Pulse Resp B/P (MAP) Pulse Ox O2 Delivery O2 Flow Rate FiO2 09/11/24 14:31 100.8 92 16 143/76 99 Room Air 0 7:00 p.m. patient was signed out to me by a.m. physician with a CT scan of the abdomen and pelvis is pending. This is a 59-year-old male with known history of cirrhosis of the liver who presented to the emergency room with a nonspecific symptoms and abdominal discomfort and and possibility that his ammonia levels maybe elevated. He had 100.8 temp. Labs were reviewed platelet count 94, white count 2.4 and hemoglobin 10.1. BNP 7 showed a creatinine of 1.5 ammonia was 66. Viral serology pending and CT scan of the abdomen and pelvis showed only nonspecific changes but no acute intra- abdominal pathology. With a low-grade fever, I was concerned about an occult sepsis a UTI, viral, secondary bacterial peritonitis. I recommended admission to the hospital for observation and management and further workup. [facility] and family members were asked who informed her that they would be bringing him back into the hospital however p ana m refused to come back. I have attempted to locate him at 7:20 p.m. and multiple times in between up to 8:00 p.m. in the [facility] area fast track and also CT area. The charge nurse also called him on his cell phone without any answer. Problem List Problem Lists: (1) Abdominal pain (2) Liver cirrhosis (3) Thrombocytopenia (4) Hypokalemia (5) Hyperammonemia DX & DISP Disposition: AMA Departure Impression: Primary Impression: Abdominal pain Additional Impressions: Low grade fever, Cirrhosis of liver, Hyperammonemia, Acute kidney injury, Thrombocytopenia Condition: Stable Additional Instructions: Patient left AMA and family members stated that he was in the car. But did not want to come back and he was nowhere to be seen I have attempted to call him and locate him at 7:20 p.m. and multiple times up to 8:00 p.m.. Personally checked in the [facility] fast track area CT scan area. In the charge nurse also called him without any answer. Patient signed out against medical advice from the emergency room. The patient is refusing to stay and complete the evaluation and disposition. The patient is fully aware of all the risks and benefits of leaving against medical advice. Possible benefits include correction of the current medical condition and improvement of symptoms. However the patient was advised the possible risks of leaving against medical advice include worsening of the current medical condition, including or causing . The patient and caregiver verbalized understanding of the risks and benefits discussed and despite this, the patient has signed out against medical advice. Please refer to the nursing documentation for further details. Patient has was advised to follow up at least with their primary care physician as soon as possible or return to the emergency department if symptoms worsen Referrals: YONY VÁSQUEZ MD (PCP) I have reviewed, & agreed with my scribe's, documentation. (Entered by Brianda Pinto, acting as a scribe for Dr. Awad) I personally scribed for KAVITHA AWAD MD (ROSALINDA) on 09/11/24 at 15:35. Electronically submitted by Brianda Pinto ([email or web address]). KAVITHA AWAD MD Sep 11, 2024 15:35 JESSEE ARCOS MD Sep 11, 2024 20:31
--- NOTE | 2024-09-11 16:42 | HMCIMG ---
CHEST 1VW HISTORY: Pain COMPARISON: 08/20/2024 FINDINGS: A frontal projection of the chest was obtained. Prominent interstitial markings are seen with possible superimposed infiltrates. The heart is normal in size. Degenerative changes are seen. No evidence of aortic calcification is seen. IMPRESSION: 1. Prominent interstitial markings are seen with possible superimposed infiltrates.
[2024-09-11 17:22] LABS: CREATININE 1.5 mg/dL (0.5-1.3); POTASSIUM 3.9 mmol/L (3.5-5.1)
[2024-09-11 18:24] LABS: BASOPHILS # (AUTO) 0.02 K/uL (0.00-0.20); BASOPHILS % (AUTO) 0.8 % (0.0-5.0); EOSINOPHILS # (AUTO) 0.02 K/uL (0.00-0.70); EOSINOPHILS % (AUTO) 0.8 % (0.0-8.0); HEMATOCRIT 29.3 % (42-54); IMMATURE GRANULOCYTE ABSOLUTE 0.01 K/uL (0-1); LYMPHOCYTES # (AUTO) 0.4 K/uL (1.0-4.8); LYMPHOCYTES % (AUTO) 17.6 % (21.0-51.0); MEAN CORPUSCULAR HEMOGLOBIN 35.3 pg (27.0-33.0); MEAN CORPUSCULAR HGB CONC 34.5 g/dL (32.0-36.0); MEAN CORPUSCULAR VOLUME 102.4 fL (79-99); MONOCYTES # (AUTO) 0.4 K/uL (0.1-1.0); MONOCYTES % (AUTO) 17.6 % (3.0-13.0); NEUTROPHILS # (AUTO) 1.5 K/uL (1.8-7.7); NEUTROPHILS % (AUTO) 62.8 % (40.0-77.0); PLATELET COUNT (AUTO) 94 K/uL (130-400); RED BLOOD CELL COUNT(AUTO) 2.86 MIL/uL (4.50-6.20); RED CELL DISTRIBUTION WIDTH 14.6 % (11.0-15.5); WHITE BLOOD COUNT (AUTO) 2.4 K/uL (4.8-10.8)
[2024-09-11 18:45] LABS: BAND NEUTROPHILS % (MANUAL) 2 % (0-2); EOSINOPHILS % (MANUAL) 2 % (1-6); LYMPHOCYTES % (MANUAL) 21 % (22-44); MAN.DIFF COMMENT-IMPRESSION MANUAL DIFFERENTIAL; MONOCYTES % (MANUAL) 3 % (2-9); REACTIVE LYMPHOCYTES 2 % (0-0); SEGMENTED NEUTROPHILS % 70 % (40-70); TOTAL CELLS COUNTED 100
[2024-09-11 18:46] LABS: PLATELET MORPHOLOGY COMMENT DECREASED
--- NOTE | 2024-09-11 19:00 | HMCIMG ---
CT ABDOMEN WITHOUT CONTRAST. CT PELVIS WITHOUT CONTRAST. INDICATION: Lower abdominal pain TECHNIQUE: Routine transaxial imaging using 5 mm slice thickness through the abdomen and pelvis without the administration of IV contrast. Thin slice reconstructions are also provided. Coronal and sagittal reformatted images acquired for interpretation. CT was performed with one or more of the following dose reduction techniques: Automated exposure control, adjustment of the mA and/or kV according to patient size, or use of iterative reconstruction technique. COMPARISON: None FINDINGS: ON NONCONTRAST IMAGING: ABDOMEN: Mild to moderate bilateral gynecomastia for which the differential is broad. 18 mm x 4 mm metallic pin or other hardware detected within the proximal to mid stomach. Heart size is normal. A few scattered punctate bilateral lung calcified granulomas. No abnormal renal calcifications, hydronephrosis, perinephric inflammation, or proximal hydroureter detected. Liver is decrease in size and nodular in contour without biliary duct dilation. The spleen is slightly enlarged and normal in attenuation. A couple of small calcific gallbladder neck stones. The pancreas appears normal without pancreatic duct dilation. The adrenal glands appear normal. No significant abdominal, retrocrural or retroperitoneal adenopathy noted. No evidence for intra-abdominal free air or organized fluid collection. Small amount of free fluid scattered throughout the abdomen and pelvis. No aortic aneurysmal dilation identified. PELVIS: No abnormal calcifications within the urinary bladder or distal ureters. No evidence for free air or organized pelvic fluid collection. No significant pelvic adenopathy detected. 1.2 cm diverticulum arising off the medial margin of the for segment of the duodenum. Terminal ileum appears unremarkable. The appendix appears normal. Visible osseous structures are intact. IMPRESSION: 1. 18 mm x 4 mm metallic pin or other hardware detected within the proximal to mid stomach. 2. Cirrhotic liver, splenomegaly, and small-volume abdominopelvic ascites. 3. Cholelithiasis. 4. Additional minor findings and pertinent negatives as reported.
--- NOTE | 2024-09-11 19:12 | NUR ---
CALLED FOR PT IN LOBBY TO MOVE TO FAST TRACK AREA. RELATIVE CAME TO WINDOW SAYING HE WOULD GO GET PT FROM CAR.
--- NOTE | 2024-09-11 20:11 | NUR ---
PATIENTS RELATIVE AND PATIENT DID NOT RETURN TO ER LOBBY. PATIENT CALLED MULTIPLE TIMES IN ER LOBBY, NO ANSWER. PATIENT CALLED TO PHONE NUMBER IN THE CHART, NO ANSWER. PATIENT ELOPED
--- NOTE | 2024-09-11 20:18 | NUR ---
MULTIPLE ATTEMPTS TO LOCATE PATIENT NEVER MADE IT TO FAST TRACK FROM LOBBY MULTIPLE ATTEMPTS TO LOCATE PT BY TRIAGE AND CHARGE NURSE AND MYSELF UNSUCCESSFUL
== END 2024-09-11 20:38 | disposition left against medical advice (07) ==
LOC: EDH 14:26
DX: R10.9 Unspecified abdominal pain (principal); R50.9 Fever, unspecified; K74.60 Unspecified cirrhosis of liver; E72.20 Disorder of urea cycle metabolism, unspecified; N17.9 Acute kidney failure, unspecified; D69.6 Thrombocytopenia, unspecified; K80.20 Calculus of gallbladder without cholecystitis without obstruction; I10 Essential (primary) hypertension; Z79.899 Other long term (current) drug therapy
CPT/HCPCS: 36415; 71045; 74176; 80048; 82140; 85025; 99284

== ENCOUNTER → 2025-03-27 | Outpatient (CLI) | payer OTHER ==
[~2025-03-27] MED LIST changes: -LEVO25CA4 PO; +LEVO25CA5 PO
[2025-03-27 14:42] LABS: BASOPHILS # (AUTO) 0.04 K/uL (0.00-0.20); BASOPHILS % (AUTO) 0.8 % (0.0-5.0); EOSINOPHILS # (AUTO) 0.13 K/uL (0.00-0.70); EOSINOPHILS % (AUTO) 2.5 % (0.0-8.0); HEMATOCRIT 31.5 % (42-54); IMMATURE GRANULOCYTE ABSOLUTE 0.01 K/uL (0-1); LYMPHOCYTES % (AUTO) 20.1 % (21.0-51.0); MEAN CORPUSCULAR HEMOGLOBIN 34.6 pg (27.0-33.0); MEAN CORPUSCULAR HGB CONC 35.6 g/dL (32.0-36.0); MEAN CORPUSCULAR VOLUME 97.2 fL (79-99); MONOCYTES # (AUTO) 0.5 K/uL (0.1-1.0); NEUTROPHILS # (AUTO) 3.4 K/uL (1.8-7.7); NEUTROPHILS % (AUTO) 66.4 % (40.0-77.0); PLATELET COUNT (AUTO) 95 K/uL (130-400); RED BLOOD CELL COUNT(AUTO) 3.24 MIL/uL (4.50-6.20); RED CELL DISTRIBUTION WIDTH 14.4 % (11.0-15.5); WHITE BLOOD COUNT (AUTO) 5.1 K/uL (4.8-10.8)
[2025-03-27 14:48] LABS: INR 1.11 (0.85-1.15); PROTHROMBIN TIME 11.6 SEC (9.6-11.6)
[2025-03-27 14:54] LABS: ALBUMIN 1.7 g/dL (3.5-5.0); CREATININE 1.4 mg/dL (0.5-1.3); POTASSIUM 4.5 mmol/L (3.5-5.1); TOTAL PROTEIN, SERUM 5.2 g/dL (6.0-8.3)
== END | disposition home or self-care (01) ==
LOC: LAB 13:59
PROVIDERS: ATTEND Internal Medicine Gastroenterology
DX: R10.9 Unspecified abdominal pain (principal); K74.60 Unspecified cirrhosis of liver
CPT/HCPCS: 36415; 80053; 82105; 85025; 85610

== ENCOUNTER → 2025-03-28 | Outpatient (CLI) | payer OTHER ==
[~2025-03-28] MED LIST changes: +IOHEXOL-350 75 ML VIAL IV ONE
--- NOTE | 2025-03-28 10:30 | HMCIMG ---
CT ABDOMEN/PELVIS W/CONTRAST HISTORY: Abdominal pain COMPARISON: 09/11/2024 TECHNIQUE: Multiple sequential axial images of the abdomen and pelvis were obtained from the dome of the diaphragm through symphysis pubis. Patient was given 75 cc of Omnipaque through intravenous route. Oral contrast was given. FINDINGS: There are bilateral pleural effusions with compressive atelectasis. There is no evidence of parenchymal disease or pulmonary nodule of the visualized lower lungs. Degenerative changes of the thoracolumbar spine are present. The heart is not enlarged. Cirrhotic changes of the liver are noted. Spleen is enlarged measuring 15 cm. There are extensive abdominal varices. Gallstone is seen in the gallbladder. No evidence of bowel obstruction is seen. Adrenal glands and pancreas are unremarkable. There is no evidence of hydronephrosis bilaterally. No evidence of renal stone is seen. Fecal material is seen in the colon. There are normal size retroperitoneal and mesenteric lymph nodes. No ascites is seen. Atherosclerotic changes are present. Pelvic sidewalls are symmetric bilaterally. Bladder is well distended without wall thickening. IMPRESSION: 1. Cirrhotic liver with enlarged spleen. Extensive abdominal varices. Gallstone in the gallbladder. CT was performed with one or more following dose reduction techniques: automated exposure control, adjustment of the mA and kv according to patient's size, or use of a iterative reconstruction technique.
== END | disposition home or self-care (01) ==
LOC: RAH 09:08
PROVIDERS: ATTEND Internal Medicine Gastroenterology
DX: K80.20 Calculus of gallbladder without cholecystitis without obstruction (principal); K74.60 Unspecified cirrhosis of liver; J98.11 Atelectasis; R16.1 Splenomegaly, not elsewhere classified; K57.41 Diverticulitis of both small and large intestine with perforation and abscess with bleeding; I70.90 Unspecified atherosclerosis; M47.815 Spondylosis without myelopathy or radiculopathy, thoracolumbar region; N32.89 Other specified disorders of bladder; R10.9 Unspecified abdominal pain
CPT/HCPCS: 74177; Q9967

== ENCOUNTER → 2025-08-14 | Outpatient (CLI) | payer OTHER ==
[~2025-08-14] MED LIST changes: -IOHEXOL-350 75 ML VIAL IV ONE
[2025-08-14 09:45] LABS: IMMATURE GRANULOCYTE ABSOLUTE 0.00 K/uL (0-1); NUCLEATED RED BLOOD CELLS 0.0 % (0.0-0.19); PLATELET COUNT (AUTO) 94 K/uL (130-400); RED BLOOD CELL COUNT(AUTO) 3.02 MIL/uL (4.50-6.20); RED CELL DISTRIBUTION WIDTH 15.7 % (11.0-15.5); WHITE BLOOD COUNT (AUTO) 4.1 K/uL (4.8-10.8)
[2025-08-14 10:01] LABS: INR 1.06 (0.85-1.15)
[2025-08-14 10:06] LABS: ASPARTATE AMINOTRANSFERASE 73.0 U/L (10-37); CREATININE 1.2 mg/dL (0.5-1.3); GLOMERULAR FILTR. RATE CALC 69.0 mL/min (>90); GLUCOSE,RANDOM 89.0 mg/dL (70-105); SODIUM SERUM 141.0 mmol/L (136-145); TOTAL PROTEIN, SERUM 5.2 g/dL (6.0-8.3); UREA NITROGEN, BLOOD 16.0 mg/dL (7-18)
== END | disposition home or self-care (01) ==
LOC: LAB 09:03
PROVIDERS: ATTEND Internal Medicine Gastroenterology
DX: K74.60 Unspecified cirrhosis of liver (principal)
CPT/HCPCS: 36415; 80053; 82105; 85025; 85610

== ENCOUNTER → 2025-08-15 | Outpatient (CLI) | payer OTHER ==
[~2025-08-15] MED LIST changes: +IOHEXOL-350 75 ML VIAL IV ONE
--- NOTE | 2025-08-15 14:22 | HMCIMG ---
EXAM: CT ABDOMEN AND PELVIS WITH AND WITHOUT CONTRAST Technique: Multidetector helical computed tomography from the diaphragms to the inguinal regions with non-contrast and post-contrast acquisitions; thin axial images with coronal and sagittal reformations. Dose reduction applied per ALARA. CTDIvol 49.30 mGy; DLP 2306.30 mGy???cm. Contrast: Standard dose of intravenous contrast administered. Oral contrast administered. Clinical Information: Unspecified abdominal pain. Comparison: None. Findings: Lung bases: Minimal bilateral pleural effusions, right greater than left, with dependent basilar atelectasis. Liver: Cirrhotic morphology with nodular contour; size otherwise within stated normal limits; homogeneous enhancement; no focal lesion identified; no intrahepatic or extrahepatic biliary dilatation. Portal vein, hepatic veins, and inferior vena cava are normal in caliber. Gallbladder and biliary tree: Two calculi at the gallbladder neck, each measuring 8 mm; wall thickness normal; no pericholecystic fluid. Pancreas: Normal size and contour; main duct not dilated; no peripancreatic inflammatory change. Spleen: Normal size and attenuation; no focal lesion. Adrenals: Normal bilaterally. Kidneys and ureters: Normal size and enhancement; no hydronephrosis or nephrolithiasis; no collecting-system filling defects on excretory phase images. Stomach and duodenum: Stomach distended without focal wall thickening; gastroesophageal junction and duodenum unremarkable. Small bowel: Normal caliber and distribution; no transition point or wall thickening. Colon and appendix: Short-segment mural thickening of the ascending colon with edematous submucosa; no pneumatosis or adjacent abscess; appendix not thickened. Peritoneum and mesentery: Minimal free intraperitoneal fluid; mesentery and omentum otherwise unremarkable; no free air. Lymph nodes: No pathologic abdominopelvic lymphadenopathy. Retroperitoneum and vasculature: Aorta and major branches normal in course and caliber with mild atherosclerotic calcifications. Pelvic organs: Urinary bladder normal in wall thickness and contour; prostate normal in size by CT. Abdominal wall/soft tissues: No hernia or fluid collection identified. Osseous structures: Degenerative changes of the visualized spine; no acute osseous abnormality. Impression: * Short-segment thickening of the ascending colon with edematous submucosa, most compatible with colitis (infectious, inflammatory, or ischemic less likely given distribution) rather than neoplasm; correlate with symptoms, inflammatory markers, and stool studies. Colonoscopy is recommended after clinical stabilization to exclude an underlying mass. * Cholelithiasis with two 8 mm stones at the gallbladder neck; no CT signs of acute cholecystitis. Correlate with right upper quadrant symptoms and laboratory values; right upper quadrant ultrasound can be obtained for further evaluation if clinically indicated. * Cirrhotic liver morphology with minimal ascites. Recommend hepatology follow-up for staging and surveillance (e.g., ultrasound and alpha-fetoprotein every 6 months) and evaluation of portal hypertension risk. * Minimal bilateral pleural effusions with basilar atelectasis. * No obstructive uropathy or other acute abdominopelvic process identified. /[place]
== END | disposition home or self-care (01) ==
LOC: RAH 09:34
PROVIDERS: ATTEND Internal Medicine Gastroenterology
DX: K80.20 Calculus of gallbladder without cholecystitis without obstruction (principal); I70.0 Atherosclerosis of aorta; R10.9 Unspecified abdominal pain; M47.817 Spondylosis without myelopathy or radiculopathy, lumbosacral region
CPT/HCPCS: 74178; Q9967

== ENCOUNTER → 2025-09-18 | Outpatient (CLI) | payer OTHER ==
[~2025-09-18] MED LIST changes: -IOHEXOL-350 75 ML VIAL IV ONE
[2025-09-18 09:25] LABS: IMMATURE GRANULOCYTE ABSOLUTE 0.01 K/uL (0-1); NUCLEATED RED BLOOD CELLS 0.0 % (0.0-0.19); PLATELET COUNT (AUTO) 113 K/uL (130-400); RED BLOOD CELL COUNT(AUTO) 3.07 MIL/uL (4.50-6.20); RED CELL DISTRIBUTION WIDTH 15.3 % (11.0-15.5); WHITE BLOOD COUNT (AUTO) 4.6 K/uL (4.8-10.8)
--- NOTE | 2025-09-18 09:30 | NUR ---
U/S GD PARACENTESIS NOT DONE U/S DONE BY Damien DOMINGUEZ RDMS. IMAGES REVIEWED BY DR Cornel RIVERA. NOT ENOUGH FLUID TO SAFELY PERFORM PROCEDURE. PT INFORMED. DISCHARGE VIA AMBULATORY. VERBALIZED UNDERSTANDING.
[2025-09-18 09:34] LABS: ERYTHROCYTE SEDIMENTATION RATE 24 MM/HR (0-20)
[2025-09-18 09:36] LABS: INR 1.07 (0.85-1.15)
[2025-09-18 09:46] LABS: % IRON SATURATION 80.2 % (30-44); IRON, SERUM 130.0 mcg/dL (65-175)
[2025-09-18 09:53] LABS: ASPARTATE AMINOTRANSFERASE 75.0 U/L (10-37); CREATININE 1.4 mg/dL (0.5-1.3); GLOMERULAR FILTR. RATE CALC 57.0 mL/min (>90); GLUCOSE,RANDOM 89.0 mg/dL (70-105); SODIUM SERUM 141.0 mmol/L (136-145); TOTAL PROTEIN, SERUM 5.3 g/dL (6.0-8.3); UREA NITROGEN, BLOOD 18.0 mg/dL (7-18)
[2025-09-18 10:02] LABS: GAMMA GLUTAMYL TRANSFERASE 181.0 U/L (5-85)
--- NOTE | 2025-09-18 12:19 | HMCIMG ---
Abdominal ultrasound (limited, modified protocol). CLINICAL INDICATION: For paracentesis FINDINGS: Limited abdominal ultrasound was performed in order to detect ascites fluid. A low frequency probe was used to obtain survey images of all 4 quadrants of the abdomen. There is minimal ascites seen in the right upper quadrant otherwise no ascites seen and other 3 quadrants. IMPRESSION: Minimal ascites seen in the right upper quadrant. There is no ascites seen in the remaining abdomen.
[2025-09-18 19:02] LABS: HEPATITIS A IGM ANTIBODY Non-Reactive (Nonreactive); HEPATITIS B CORE AB TOTAL Non-Reactive (Nonreactive); HEPATITIS B CORE IGM ANTIBODY Non-Reactive (Negative); HEPATITIS B SURFACE ANTIBODY Negative (Reactive)
[2025-09-19 08:13] LABS: HEPATITIS A ANTIBODY TOTAL Positive (Negative)
[2025-09-19 11:13] LABS: ANTI-SCLERODERMA 70 <0.2 AI (0.0-0.9)
== END | disposition home or self-care (01) ==
LOC: LAB 08:17
PROVIDERS: ATTEND Internal Medicine Gastroenterology
DX: K74.60 Unspecified cirrhosis of liver (principal); R10.9 Unspecified abdominal pain; R93.3 Abnormal findings on diagnostic imaging of other parts of digestive tract
CPT/HCPCS: 36415; 76705; 80053; 82103; 82104; 82140; 82390; 82728; 82784; 82977; 83516; 83540; 83550; 83993; 85025; 85610; 85651; 85730; 86015; 86038; 86140; 86215; 86235; 86376; 86381; 86704; 86705; 86706; 86708; 86709; 87340; 87507; 87522